=== PATIENT | female | born 1955 | race American Indian/Alaskan Native ===

== ENCOUNTER 2017-05-22 18:02 | Inpatient (IN) | payer MEDICAID ==
[2017-05-22 19:21] LABS: Basophils % (Auto) 0.7 % (0.0-1.8); Eosinophils % (Auto) 0.7 % (0.0-4.3); Hematocrit 38.4 % (30.3-42.9); Hemoglobin 12.1 gm/dl (10.1-14.3); Mean Corpuscular HGB Conc 32 % (30-34); Mean Corpuscular Hemoglobin 27 pg (28-32); Mean Corpuscular Volume 86 fl (79-97); Platelet Count 297 K/mm3 (140-440); Red Blood Count 4.47 M/mm3 (3.65-5.03); Red Cell Distribution Width 15.6 % (13.2-15.2); White Blood Count 7.1 K/mm3 (4.5-11.0)
[2017-05-22] MEDS ORDERED: TYLENOL PO ONE (19:41)
[2017-05-22] MEDS ORDERED: PROVENTIL IH ONE (19:41)
[2017-05-22] MEDS ORDERED: MAGNESIUM SULFATE 2GM/50ML 2 GM/50 ML BAG IV ONE (19:41)
[2017-05-22] MEDS ORDERED: ATROVENT IH ONE (19:41)
--- NOTE | 2017-05-22 19:43 | Emergency Department Report ---
ED General Adult HPI - General Chief complaint: High BP Stated complaint: SOB/HYPERTENSIVE Time Seen by Provider: 05/22/17 19:17 Source: patient, EMS (ems notes not available at time of chart dictation), RN notes reviewed Mode of arrival: Stretcher Limitations: No Limitations, Physical Limitation - History of Present Illness Initial comments: This is a 62-year-old female. She is previously unknown to me. Her primary care doctor is Dr. Angle Rodriguez. Past medical history includes hypertension, anxiety, asthma. Patient presents to the ER complaining of central chest pain, shortness of breath, orthopnea, decreased exercise tolerance, bilateral lower extremity swelling. Patient reports that at baseline she sleeps on 2 pillows. She reports an increase in orthopnea. Patient reports a recent trip from [place] over a month ago, but reports frequent stops for bathroom breaks. The patient also complains of central and scalp headache. The headache is throbbing. It is not sudden thunderclap in nature. It did not reach maximal intensity within an hour. There is no neck pain or neck stiffness. There is no abdominal pain, there are no irritative and obstructive urinary symptoms, no cough, positive diaphoresis, uncertain if she's had any weight gain. -: Gradual, days(s) Location: chest, left, right, lower extremity Severity scale (0 -10): 8 Quality: aching Consistency: constant Improves with: rest Worsens with: movement Associated Symptoms: chest pain, malaise, shortness of breath, weakness. denies : cough - Related Data Home Medications Medication Instructions Recorded Confirmed Last Taken Atenolol/Chlorthalidone [Tenoretic 1 tab PO QDAY 05/22/17 05/22/17 01/03/17 100-25] Allergies Allergy/AdvReac Type Severity Reaction Status Date / Time codeine Allergy Itching Verified 05/22/17 19:46 morphine Allergy Unknown Verified 05/22/17 19:46 ED Review of Systems ROS: Stated complaint: SOB/HYPERTENSIVE Other details as noted in HPI Constitutional: malaise, weakness Eyes: denies: vision change Respiratory: shortness of breath, SOB with exertion, wheezing Cardiovascular: chest pain, dyspnea on exertion, orthopnea, edema Gastrointestinal: denies: vomiting Genitourinary: denies: urgency Musculoskeletal: denies: back pain Skin: denies: lesions Neurological: headache, weakness Psychiatric: anxiety ED Past Medical Hx - Past Medical History Previous Medical History?: Yes Hx Hypertension: Yes - Surgical History Hx Cholecystectomy: Yes Additional Surgical History: HYSTO 84 - Social History Smoking Status: Never Smoker Substance Use Type: None - Medications Home Medications: Home Medications Medication Instructions Recorded Confirmed Last Taken Type Atenolol/Chlorthalidone [Tenoretic 1 tab PO QDAY 05/22/17 05/22/17 01/03/17 History 100-25] ED Physical Exam - General Limitations: Physical Limitation General appearance: alert, in no apparent distress - Head Head exam: Present: atraumatic, normocephalic - Eye Eye exam: Present: normal appearance, EOMI. Absent: nystagmus - ENT ENT exam: Present: normal exam, normal orophraynx, mucous membranes moist, normal external ear exam - Neck Neck exam: Present: normal inspection, full ROM, other (4-5 cm of jugular venous distention bilaterally). Absent: tenderness, meningismus - Respiratory Respiratory exam: Present: respiratory distress, wheezes, rales, rhonchi, chest wall tenderness - Cardiovascular Cardiovascular Exam: Present: regular rate, normal rhythm, normal heart sounds. Absent: bradycardia, tachycardia, irregular rhythm, systolic murmur, diastolic murmur, rubs, gallop - GI/Abdominal GI/Abdominal exam: Present: soft, normal bowel sounds. Absent: distended, tenderness, guarding, rebound, rigid, pulsatile mass - Extremities Exam Extremities exam: Present: normal inspection, full ROM, normal capillary refill , pedal edema. Absent: calf tenderness - Back Exam Back exam: Present: normal inspection, full ROM. Absent: tenderness, CVA tenderness (R), CVA tenderness (L), muscle spasm, paraspinal tenderness, vertebral tenderness - Neurological Exam Neurological exam: Present: alert, oriented X3, other (Extraocular movements intact. Tongue midline. No facial droop. Facial sensation intact to light touch in the V1, V2, V3 distribution bilaterally. 5 and 5 strength in 4 extremities.. Sensation is intact to light touch in 4 extremities.). Absent: motor sensory deficit - Psychiatric Psychiatric exam: Present: normal affect, normal mood - Skin Skin exam: Present: warm, dry, intact, normal color. Absent: rash ED Course Vital Signs 05/22/17 05/22/17 05/22/17 18:28 19:49 19:59 Temperature 98.7 F Pulse Rate 94 H 86 Pulse Rate [ 91 H Bilateral Upper Lobe] Respiratory 18 24 Rate Respiratory 18 Rate [Bilateral Upper Lobe] Blood Pressure 213/110 Blood Pressure 165/98 [Right] O2 Sat by Pulse 95 97 Oximetry 05/22/17 05/22/17 21:00 23:00 Temperature Pulse Rate 101 H 98 H Pulse Rate [ Bilateral Upper Lobe] Respiratory 22 22 Rate Respiratory Rate [Bilateral Upper Lobe] Blood Pressure Blood Pressure 158/96 159/98 [Right] O2 Sat by Pulse 98 97 Oximetry - Reevaluation(s) Reevaluation #1: 05/22/17 20:34 Differential diagnosis: Congestive heart failure, pneumonia, bronchitis, pulmonary hypertension, obstructive sleep apnea, multifactorial respiratory distress Assessment and plan: 62-year-old female with chest tightness that is reproducible, shortness of breath, edema, orthopnea, jugular venous distention, x-ray of the chest that suggest congestive heart failure. Clinical picture consistent with new onset congestive heart failure. Troponin is negative. Renal function is within normal limits. Low risk by well's criteria. EKG is nonspecific. Patient will be treated symptomatically for her headache, which is most likely migraine versus tension versus cluster versus nonlethal headache. She has a GCS of 15, with an anion score of 0, and she is clinically sober at this time. She will be admitted to the hospital for presumed new onset congestive heart failure, acute coronary syndrome risk stratification. Reevaluation #2: 05/22/17 21:57 Case is discussed with the Hospital physician, Dr. Mi, she accepts the patient to her service. ED Medical Decision Making - Lab Data Result diagrams: 05/23/17 05:26 05/23/17 05:27 - EKG Data -: EKG Interpreted by Me Critical care attestation.: If time is entered above; I have spent that time in minutes in the direct care of this critically ill patient, excluding procedure time. ED Disposition Clinical Impression: CHF (congestive heart failure) Disposition: -09 OP ADMIT IP TO THIS HOSP Is pt being admited?: Yes Does the pt Need Aspirin: Yes Condition: Stable
[2017-05-22 19:56] LABS: Anion Gap 15 mmol/L; Blood Urea Nitrogen 9 mg/dL (7-17); Calcium 9.1 mg/dL (8.4-10.2); Carbon Dioxide 31 mmol/L (22-30); Chloride 101.9 mmol/L (98-107); Glucose 105 mg/dL (65-100); Potassium 4.2 mmol/L (3.6-5.0); Sodium 144 mmol/L (137-145)
--- NOTE | 2017-05-22 20:04 | XRay Report ---
FINAL REPORT EXAM: XR CHEST 1V AP HISTORY: CP TECHNIQUE: AP portable view of the chest PRIORS: None. FINDINGS: Lines, tubes, and devices: N/A Lungs and pleura: Trachea is normal in position. There is perihilar vascular congestion suggesting mild CHF. Haziness in the right lung base suggesting probable pleural effusion tracking laterally. Cardiomediastinal silhouette: Heart is enlarged. Mediastinum is unremarkable. Other: Bony structures are intact. IMPRESSION: Perihilar vascular congestion suggesting CHF. Probable right pleural effusion tracking laterally.
[2017-05-22] MEDS ORDERED: TORADOL IV ONE (20:12)
[2017-05-22] MEDS ORDERED: LASIX IV ONE (20:12)
[2017-05-22 20:42] LABS: Magnesium 1.7 mg/dL (1.7-2.3)
[2017-05-22] MEDS ORDERED: BABY ASPIRIN PO ONE (21:58)
[2017-05-22] MEDS ORDERED: DULCOLAX PR PRN (22:42)
[2017-05-22] MEDS ORDERED: ZOFRAN IV PRN (22:42)
[2017-05-22] MEDS ORDERED: MILK OF MAGNESIA PO PRN (22:42)
--- NOTE | 2017-05-22 22:51 | History and Physical Report ---
History of Present Illness Date of examination: 05/22/17 History of present illness: 62 -year-old woman with a history of hypertension, asthma, anxiety comes emergency room with complaint of shortness of breath, dyspnea on exertion, PND and orthopnea and lower extremity edema.. She has not taken her antihypertensive over the last 4 months. Also complaining of chest pain in the epigastric area which she described as stabbing pain, intermittent in nature lasting 1 minute, intensity 5/10, no radiation and she cannot identify exacerbating or relieving factors. Admits to diaphoresis, no nausea vomiting, palpitation Review Of Systems: Constitutional: no fever, chills, weight loss Ears, eyes, nose, mouth and throat: no nasal congestion, no nasal discharge, no sinus pressure, blurry vision, diplopia Neck: No neck pain or rigidity. Cardiovascular: no orthopnea, palpitations Respiratory: No shortness of breath, cough Gastrointestinal: abdominal pain, hematochezia Genitourinary : no dysuria, frequency , hematuria Musculoskeletal: no joint swelling or muscle ache Integumentary: no rash, no pruritis Neurological: no parathesias, focal weakness Endocrine: no cold or heat intolerance, no polyuria or polydipsia Hematologic/Lymphatic: no easy bruising, no easy bleeding, no gland swelling Allergic/Immunologic: no urticaria, no angioedema. PAST MEDICAL HISTORY:hypertension, asthma, anxiety PAST SURGICAL HISTORY: Cholecystectomy, hysterectomy FAMILY HISTORY: Hypertension SOCIAL HISTORY: Denies alcohol, tobacco, drugs Medications and Allergies Allergies Allergy/AdvReac Type Severity Reaction Status Date / Time codeine Allergy Itching Verified 05/22/17 19:46 morphine Allergy Unknown Verified 05/22/17 19:46 Home Medications Medication Instructions Recorded Confirmed Last Taken Type Atenolol/Chlorthalidone [Tenoretic 1 tab PO QDAY 05/22/17 05/22/17 01/03/17 History 100-25] Active Meds: Active Medications Acetaminophen (Tylenol) 650 mg PO Q4H PRN PRN Reason: Pain MILD(1-3)/Fever >100.5/CONTRERAS Aspirin (Aspirin) 325 mg PO QDAY JEREMY Bisacodyl (Dulcolax) [address] QDAY PRN PRN Reason: Constipation unrelieved by MOM Enoxaparin Sodium (Lovenox) 30 mg SUB-Q QDAY JEREMY Furosemide (Lasix) 40 mg IV BID@0600,1800 JEREMY Lisinopril (Zestril) 2.5 mg PO QDAY JEREMY Magnesium Hydroxide (Milk Of Magnesia) 30 ml PO Q4H PRN PRN Reason: Constipation Metoprolol Tartrate (Lopressor) 12.5 mg PO BID JEREMY Ondansetron HCl (Zofran) 4 mg IV Q8H PRN PRN Reason: N/V unrelieved by Reglan Exam - Physical Exam Narrative exam: Gen. appearance: Patient lying in bed, no apparent distress HEENT: Normocephalic, atraumatic, pupils equally round and reactive to light, extraocular movement intact, and no sclericterus,. No JVD or thyromegaly or nodule,neck supple, no carotid bruit ,mucous membranes moist, no exudate or erythema Heart: S1, S2, regular rate and rhythm Lungs: crackles bilaterally, breathing comfortable Abdomen: Positive bowel sounds, nontender, nondistended, no organomegaly Extremity: No edema, cyanosis, clubbing Skin: No rash, nodules, warm, dry Neuro: Oriented 3, cranial nerves II-12 intact, speech is fluent, motor and sensory intact - Constitutional Vitals: Temp Pulse Resp BP Pulse Ox 98.7 F 101 H 22 158/96 98 05/22/17 18:28 05/22/17 21:00 05/22/17 21:00 05/22/17 21:00 05/22/17 21:00 Results - Labs CBC & Chem 7: 05/22/17 18:58 05/22/17 18:58 Labs: Abnormal lab results 05/22/17 05/22/17 Range/Units 18:58 18:58 MCH 27 L (28-32) pg RDW 15.6 H (13.2-15.2) % Carbon Dioxide 31 H (22-30) mmol/L Creatinine 0.5 L (0.7-1.2) mg/dL Glucose 105 H (65-100) mg/dL - Imaging and Cardiology EKG: image reviewed Chest x-ray: image reviewed Assessment and Plan Assessment New onset CHF versus hypertensive urgency Chest pain Hypertension malignant Asthma Anxiety Plan Admit to medicine Diuresed with IV Lasix Start beta lacey, aspirin, STEPHANIE inhibitor Check cardiac enzymes, echo, consult cardiology Start IV hydralazine as needed for blood pressure obtain stress test Continue Procrit outpatient medication comes start DVT prophylaxis
[2017-05-23] LABS: ISTAT Base Excess 8; ISTAT HCO3 34.1; ISTAT PCO2 62.2 (35-45); ISTAT PH 7.348 (7.35-7.45); ISTAT PO2 99 (80-105); ISTAT SO2 97; ISTAT TCO2 36
[2017-05-23] MEDS: APRESOLINE IV PRN ×2 (01:49→07:50)
[2017-05-23] MEDS: LASIX IV SCH ×2 (05:21→18:21)
[2017-05-23 06:02] LABS: Hematocrit 38.6 % (30.3-42.9); Hemoglobin 11.9 gm/dl (10.1-14.3); Mean Corpuscular HGB Conc 31 % (30-34); Mean Corpuscular Hemoglobin 27 pg (28-32); Mean Corpuscular Volume 86 fl (79-97); Platelet Count 305 K/mm3 (140-440); Red Cell Distribution Width 15.4 % (13.2-15.2); White Blood Count 8.9 K/mm3 (4.5-11.0)
[2017-05-23 06:04] LABS: Anion Gap 18 mmol/L; Blood Urea Nitrogen 11 mg/dL (7-17); Calcium 9.2 mg/dL (8.4-10.2); Carbon Dioxide 29 mmol/L (22-30); Chloride 96.8 mmol/L (98-107); Glucose 197 mg/dL (65-100); Potassium 4.3 mmol/L (3.6-5.0); Sodium 139 mmol/L (137-145)
[2017-05-23 06:23] LABS: Creatine Kinase MB 2.5 ng/mL (0.0-4.0)
[2017-05-23 06:24] LABS: Creatine Kinase 102 units/L (30-135)
[2017-05-23 07:10] LABS: Anisocytosis 1+; Basophils % (Manual) 0 % (0.0-1.8); Blastocytes % (Manual) 0 %; Diff Status Complete
[2017-05-23] MEDS: TYLENOL PO PRN ×2 (07:58→18:21)
--- NOTE | 2017-05-23 08:16 | Consultation ---
History of Present Illness Consult date: 05/23/17 Consult reason: shortness of breath History of present illness: 62 year old female presenting with shortness of breath, chest tightness, edema and headache. BP is uncontrolled. She ran out of BP meds. She takes lasix as needed at home. Last cardiac evaluation was performed several years ago. CXR is pertinent for early CHF changes. Past History Past Medical History: hypertension Medications and Allergies Allergies Allergy/AdvReac Type Severity Reaction Status Date / Time codeine Allergy Itching Verified 05/22/17 19:46 morphine Allergy Unknown Verified 05/22/17 19:46 Home Medications Medication Instructions Recorded Confirmed Last Taken Type Atenolol/Chlorthalidone [Tenoretic 1 tab PO QDAY 05/22/17 05/22/17 01/03/17 History 100-25] Active Meds: Active Medications Acetaminophen (Tylenol) 650 mg PO Q4H PRN PRN Reason: Pain MILD(1-3)/Fever >100.5/COTNRERAS Last Admin: 05/23/17 07:58 Dose: 650 mg Aspirin (Aspirin) 325 mg PO QDAY JEREMY Bisacodyl (Dulcolax) 10 mg AR QDAY PRN PRN Reason: Constipation unrelieved by MOM Enoxaparin Sodium (Lovenox) 40 mg SUB-Q QDAY@1000 JEREMY Furosemide (Lasix) 40 mg IV BID@0600,1800 JEREMY Last Admin: 05/23/17 05:21 Dose: 40 mg Hydralazine HCl (Apresoline) 5 mg IV Q4HR PRN PRN Reason: SBP > 160 Last Admin: 05/23/17 07:50 Dose: 5 mg Lisinopril (Zestril) 2.5 mg PO QDAY JEREMY Magnesium Hydroxide (Milk Of Magnesia) 30 ml PO Q4H PRN PRN Reason: Constipation Last Admin: 05/23/17 07:58 Dose: 30 ml Metoprolol Tartrate (Lopressor) 12.5 mg PO BID JEREMY Ondansetron HCl (Zofran) 4 mg IV Q8H PRN PRN Reason: N/V unrelieved by Reglan Pneumococcal Polyvalent Vaccine (Pneumovax 23) 0.5 ml IM .ONCE ONE Stop: 05/23/17 12:01 Review of Systems All systems: negative Physical Examination Vital Signs Temp Pulse Resp BP Pulse Ox 98.7 F 94 H 18 213/110 95 05/22/17 18:28 05/22/17 18:28 05/22/17 18:28 05/22/17 18:28 05/22/17 18:28 General appearance: no acute distress HEENT: Positive: PERRL Neck: Positive: neck supple, JVD/HJR Cardiac: Positive: Reg Rate and Rhythm Lungs: Positive: Decreased Breath Sounds Neuro: Positive: Grossly Intact Abdomen: Positive: Soft Extremities: Absent: edema Results 05/23/17 05:26 05/23/17 05:27 Cardiac Enzymes 05/23/17 Range/Units 05:27 CK-MB (CK-2) 2.5 (0.0-4.0) ng/mL CBC 05/23/17 Range/Units 05:26 WBC 8.9 (4.5-11.0) K/mm3 RBC 4.50 (3.65-5.03) M/mm3 Hgb 11.9 (10.1-14.3) gm/dl Hct 38.6 (30.3-42.9) % Plt Count 305 (140-440) K/mm3 Comprehensive Metabolic Panel 05/23/17 Range/Units 05:27 Sodium 139 (137-145) mmol/L Potassium 4.3 (3.6-5.0) mmol/L Chloride 96.8 L (98-107) mmol/L Carbon Dioxide 29 (22-30) mmol/L BUN 11 (7-17) mg/dL Creatinine 0.5 L (0.7-1.2) mg/dL Glucose 197 H (65-100) mg/dL Calcium 9.2 (8.4-10.2) mg/dL - EKG Interpretation EKG: sinus rhythm EKG shows: sinus rhythm EKG interpretations - Telemetry EKG Rhythm: Sinus Rhythm Assessment and Plan Acute diastolic heart failure Uncontrolled systemic Hypertension Morbid obesity Recommendations: Diuresis, afterload reduction Echocardiogram Lexiscan once blood pressure is better controlled
[2017-05-23] MEDS ORDERED: APRESOLINE IV PRN (08:28)
[2017-05-23] MEDS: COREG PO SCH ×2 (09:57→21:29)
[2017-05-23] MEDS: ASPIRIN PO SCH (09:57)
[2017-05-23] MEDS: THALITONE PO SCH (09:57)
[2017-05-23] MEDS: DIOVAN PO SCH ×2 (09:58→21:30)
[2017-05-23] MEDS: LOVENOX SUB-Q SCH (09:58)
[2017-05-23] MEDS ORDERED: ZESTRIL PO SCH (10:00)
[2017-05-23] MEDS ORDERED: LOPRESSOR PO SCH (10:00)
[2017-05-23] MEDS ORDERED: LOVENOX SUB-Q SCH (10:00)
[2017-05-23] MEDS ORDERED: PNEUMOVAX 23 IM ONE (12:00)
--- NOTE | 2017-05-23 13:34 | Progress Note ---
Assessment and Plan Assessment and plan: Acute CHF Hypertensive emergency - On IV diuresis, blood pressure medications were started - Patient is appropriately treated for CHF - Echo and a stress test pending DVT prophylaxis - on lovenox Disposition - Admit to telemetry History Interval history: patient seen and evaluated at the bedside, patient complains chest congestion and headache. Hospitalist Physical - Physical exam Narrative exam: Not in cardiopulmonary distress. The patient is obese. Vital signs as documented. Head exam is unremarkable. No scleral icterus . Neck is without jugular venous distension, thyromegaly, or carotid bruits. Lungs are rales on the posterior bibasilar area. Cardiac exam reveals regular rate and Rhythm. First and second heart sounds normal. No murmurs, rubs or gallops. Abdominal exam reveals normal bowel sounds, no masses, no organomegaly and no aortic enlargement. Extremities are nonedematous and both femoral and pedal pulses are normal. [employer]: Alert and oriented 3. No focal weakness. - Constitutional Vitals: Temp Pulse Resp BP Pulse Ox 98.2 F 86 20 216/109 94 05/23/17 07:20 05/23/17 09:58 05/23/17 07:20 05/23/17 09:58 05/23/17 07:20 General appearance: Present: no acute distress Results - Labs CBC & Chem 7: 05/23/17 05:26 05/23/17 05:27 Labs: Laboratory Last Values WBC 8.9 K/mm3 (4.5-11.0) 05/23/17 05:26 RBC 4.50 M/mm3 (3.65-5.03) 05/23/17 05:26 Hgb 11.9 gm/dl (10.1-14.3) 05/23/17 05:26 Hct 38.6 % (30.3-42.9) 05/23/17 05:26 MCV 86 fl (79-97) 05/23/17 05:26 MCH 27 pg (28-32) L 05/23/17 05:26 MCHC 31 % (30-34) 05/23/17 05:26 RDW 15.4 % (13.2-15.2) H 05/23/17 05:26 Plt Count 305 K/mm3 (140-440) 05/23/17 05:26 Lymph % (Auto) 23.8 % (13.4-35.0) 05/22/17 18:58 [place] % (Auto) 6.3 % (0.0-7.3) 05/22/17 18:58 Eos % (Auto) 0.7 % (0.0-4.3) 1817 18:58 Baso % (Auto) 0.7 % (0.0-1.8) 05/22/17 18:58 Lymph # 1.7 K/mm3 (1.2-5.4) 05/22/17 18:58 [place] # 0.4 K/mm3 (0.0-0.8) 05/22/17 18:58 Eos # 0.1 K/mm3 (0.0-0.4) 05/22/17 18:58 Baso # 0.0 K/mm3 (0.0-0.1) 18 18:58 Add Manual Diff Complete 05/23/17 05:26 Total Counted 100 05/23/17 05:26 Seg Neutrophils % Certified Coder 05/23/17 05:26 Seg Neuts % (Manual) 23.0 % (40.0-70.0) L 05/23/17 05:26 Band Neutrophils % 72.0 % 05/23/17 05:26 Lymphocytes % (Manual) 1.0 % (13.4-35.0) L 05/23/17 05:26 Reactive Lymphs % (Man) 0 % 05/23/17 05:26 Monocytes % (Manual) 0 % (0.0-7.3) 05/23/17 05:26 Eosinophils % (Manual) 2.0 % (0.0-4.3) 05/23/17 05:26 Basophils % (Manual) 0 % (0.0-1.8) 05/23/17 05:26 Metamyelocytes % 2.0 % 05/23/17 05:26 Myelocytes % 0 % 05/23/17 05:26 Promyelocytes % 0 % 05/23/17 05:26 Blast Cells % 0 % 05/23/17 05:26 Nucleated RBC % 14.0 % (0.0-0.9) H 05/23/17 05:26 Seg Neutrophils # 4.8 K/mm3 (1.8-7.7) 05/22/17 18:58 Seg Neutrophils # Man 2.0 K/mm3 (1.8-7.7) 05/23/17 05:26 Band Neutrophils # 6.4 K/mm3 05/23/17 05:26 Lymphocytes # (Manual) 0.1 K/mm3 (1.2-5.4) L 05/23/17 05:26 Abs React Lymphs (Man) 0.0 K/mm3 05/23/17 05:26 Monocytes # (Manual) 0.0 K/mm3 (0.0-0.8) 05/23/17 05:26 Eosinophils # (Manual) 0.2 K/mm3 (0.0-0.4) 05/23/17 05:26 Basophils # (Manual) 0.0 K/mm3 (0.0-0.1) 05/23/17 05:26 Metamyelocytes # 0.2 K/mm3 05/23/17 05:26 Myelocytes # 0.0 K/mm3 05/23/17 05:26 Promyelocytes # 0.0 K/mm3 05/23/17 05:26 Blast Cells # 0.0 K/mm3 05/23/17 05:26 WBC Morphology Not Reportable 05/23/17 05:26 Hypersegmented Neuts Not Reportable 05/23/17 05:26 Hyposegmented Neuts Not Reportable 05/23/17 05:26 Hypogranular Neuts Not Reportable 05/23/17 05:26 Smudge Cells Not Reportable 05/23/17 05:26 Toxic Granulation Not Reportable 05/23/17 05:26 Toxic Vacuolation Not Reportable 05/23/17 05:26 Dohle Bodies Not Reportable 05/23/17 05:26 Pelger-Huet Anomaly Not Reportable 05/23/17 05:26 Estella Rods Not Reportable 05/23/17 05:26 Platelet Estimate Appears normal 05/23/17 05:26 Clumped Platelets Not Reportable 05/23/17 05:26 Plt Clumps, EDTA Not Reportable 05/23/17 05:26 Large Platelets Not Reportable 05/23/17 05:26 Giant Platelets Not Reportable 05/23/17 05:26 Platelet Satelliting Not Reportable 05/23/17 05:26 Plt Morphology Comment Not Reportable 05/23/17 05:26 RBC Morphology Not Reportable 05/23/17 05:26 Dimorphic RBCs Not Reportable 05/23/17 05:26 Polychromasia Not Reportable 05/23/17 05:26 Hypochromasia Not Reportable 05/23/17 05:26 Poikilocytosis Not Reportable 05/23/17 05:26 Anisocytosis 1+ 05/23/17 05:26 Microcytosis Not Reportable 05/23/17 05:26 Macrocytosis Not Reportable 05/23/17 05:26 Spherocytes Not Reportable 05/23/17 05:26 Pappenheimer Bodies Not Reportable 05/23/17 05:26 Sickle Cells Not Reportable 05/23/17 05:26 Target Cells Not Reportable 05/23/17 05:26 Tear Drop Cells Not Reportable 05/23/17 05:26 Ovalocytes Not Reportable 05/23/17 05:26 Helmet Cells Not Reportable 05/23/17 05:26 [place] Bodies Not Reportable 05/23/17 05:26 [place] Rings Not Reportable 05/23/17 05:26 [place] Cells Not Reportable 05/23/17 05:26 Bite Cells Not Reportable 05/23/17 05:26 Crenated Cell Not Reportable 05/23/17 05:26 Elliptocytes Not Reportable 05/23/17 05:26 Acanthocytes (Spur) Not Reportable 05/23/17 05:26 Rouleaux Not Reportable 05/23/17 05:26 Hemoglobin C Crystals Not Reportable 05/23/17 05:26 Schistocytes Not Reportable 05/23/17 05:26 Malaria parasites Not Reportable 05/23/17 05:26 Mauro Bodies Not Reportable 05/23/17 05:26 Hem Pathologist Commnt No 05/23/17 05:26 PT 13.7 Sec. (12.2-14.9) 05/22/17 18:48 INR 1.00 (0.87-1.13) 05/22/17 18:48 POC ABG pH 7.348 (7.35-7.45) L 05/22/17 23:47 POC ABG pCO2 62.2 (35-45) H 05/22/17 23:47 POC ABG pO2 99 (80-105) 05/22/17 23:47 POC ABG HCO3 34.1 05/22/17 23:47 POC ABG Total CO2 36 05/22/17 23:47 POC ABG O2 Sat 97 05/22/17 23:47 POC ABG Base Excess 8 05/22/17 23:47 FiO2 28 % 05/22/17 23:47 Sodium 139 mmol/L (137-145) 05/23/17 05:27 Potassium 4.3 mmol/L (3.6-5.0) 05/23/17 05:27 Chloride 96.8 mmol/L (98-107) L 05/23/17 05:27 Carbon Dioxide 29 mmol/L (22-30) 05/23/17 05:27 Anion Gap 18 mmol/L 05/23/17 05:27 BUN 11 mg/dL (7-17) 05/23/17 05:27 Creatinine 0.5 mg/dL (0.7-1.2) L 05/23/17 05:27 Estimated GFR > 60 ml/min 05/23/17 05:27 BUN/Creatinine Ratio 22.00 % 05/23/17 05:27 Glucose 197 mg/dL (65-100) H 05/23/17 05:27 Calcium 9.2 mg/dL (8.4-10.2) 05/23/17 05:27 Magnesium 1.70 mg/dL (1.7-2.3) 05/22/17 18:48 Total Creatine Kinase 102 units/L (30-135) 05/23/17 05:27 CK-MB (CK-2) 2.5 ng/mL (0.0-4.0) 05/23/17 05:27 CK-MB (CK-2) Rel Index 2.4 (0-4) 05/23/17 05:27 Troponin T < 0.010 ng/mL (0.00-0.029) 05/23/17 05:27 NT-Pro-B Natriuret Pep 669.9 pg/mL (0-900) 05/22/17 18:48
[2017-05-24] MEDS: LASIX IV SCH ×2 (05:26→17:26)
[2017-05-24] MEDS: TYLENOL PO PRN ×2 (05:31→12:45)
[2017-05-24 07:42] LABS: Eosinophils % (Auto) 0.3 % (0.0-4.3); Hematocrit 39.7 % (30.3-42.9); Hemoglobin 12.6 gm/dl (10.1-14.3); Mean Corpuscular HGB Conc 32 % (30-34); Mean Corpuscular Hemoglobin 27 pg (28-32); Mean Corpuscular Volume 86 fl (79-97); Platelet Count 326 K/mm3 (140-440); Red Blood Count 4.64 M/mm3 (3.65-5.03); Red Cell Distribution Width 16.1 % (13.2-15.2); White Blood Count 7.2 K/mm3 (4.5-11.0)
[2017-05-24 07:49] LABS: BUN/Creatinine Ratio 33.33; Blood Urea Nitrogen 20 mg/dL (7-17); Calcium 9.4 mg/dL (8.4-10.2); Carbon Dioxide 36 mmol/L (22-30); Chloride 97.8 mmol/L (98-107); Glucose 82 mg/dL (65-100); Potassium 4.5 mmol/L (3.6-5.0); Sodium 145 mmol/L (137-145)
[2017-05-24] MEDS ORDERED: LEXISCAN IV ONE ×2 (08:04→08:14)
[2017-05-24 08:07] LABS: Anion Gap 16 mmol/L
--- NOTE | 2017-05-24 08:50 | Progress Note ---
Assessment and Plan Acute diastolic heart failure Systemic Hypertension - better controlled Morbid obesity Recommendations: Diuresis, afterload reduction Follow-up lexiscan results May go home if normal on the following meds. coreg, chlorthalidone and valsartan as ordered Subjective Date of service: 05/24/17 Principal diagnosis: SOB, HTN urgency Interval history: Patient feels better this morning, BP is better controlled Objective Vital Signs Temp Pulse Resp BP Pulse Ox 05/24/17 05:17 97.6 F 72 18 152/81 94 05/24/17 00:34 98.2 F 76 18 139/68 94 05/23/17 20:58 72 05/23/17 20:37 96 05/23/17 15:53 98.1 F 66 20 142/76 97 05/23/17 13:36 97.5 F L 79 20 151/82 94 05/23/17 09:58 86 216/109 05/23/17 09:57 86 216/109 - Physical Examination HEENT: Positive: PERRL Neck: Positive: neck supple, JVD/HJR Cardiac: Positive: Reg Rate and Rhythm Lungs: Positive: Normal Exam Neuro: Positive: Grossly Intact Abdomen: Positive: Soft Extremities: Absent: edema - Labs and Meds CBC 05/24/17 Range/Units 07:06 WBC 7.2 (4.5-11.0) K/mm3 RBC 4.64 (3.65-5.03) M/mm3 Hgb 12.6 (10.1-14.3) gm/dl Hct 39.7 (30.3-42.9) % Plt Count 326 (140-440) K/mm3 Lymph # 2.2 (1.2-5.4) K/mm3 [place] # 0.5 (0.0-0.8) K/mm3 Eos # 0.0 (0.0-0.4) K/mm3 Baso # 0.1 (0.0-0.1) K/mm3 Comprehensive Metabolic Panel 05/24/17 Range/Units 07:06 Sodium 145 (137-145) mmol/L Potassium 4.5 (3.6-5.0) mmol/L Chloride 97.8 L (98-107) mmol/L Carbon Dioxide 36 H D (22-30) mmol/L BUN 20 H (7-17) mg/dL Creatinine 0.6 L (0.7-1.2) mg/dL Glucose 82 (65-100) mg/dL Calcium 9.4 (8.4-10.2) mg/dL - Imaging and Cardiology EKG: image reviewed
[2017-05-24] MEDS ORDERED: NACL 0.9% 500 ML 500 ML IV SCH (10:00)
[2017-05-24] MEDS: THALITONE PO SCH (10:31)
[2017-05-24] MEDS: ASPIRIN PO SCH (10:31)
[2017-05-24] MEDS: DIOVAN PO SCH ×2 (10:31→21:10)
[2017-05-24] MEDS: COREG PO SCH ×2 (10:32→21:09)
[2017-05-24] MEDS: LOVENOX SUB-Q SCH (10:32)
--- NOTE | 2017-05-24 11:32 | Progress Note ---
Assessment and Plan Assessment and plan: Acute combined diastolic and systolic CHF Hypertensive emergency - On IV diuresis, blood pressure medications started and BP is reasonably well controlled - Patient is appropriately treated for CHF - Echo showed diastolic dysfunction - Stress test showed a partially reversible defect in the inferior wall, LVEF 35 % with global hypokinesis - Will have LHC in the morning DVT prophylaxis - on lovenox Disposition - Continue inpatient care. History Interval history: patient seen and evaluated at the bedside, congestion and chest pain getting better. Cardiology recommendation noticed. Hospitalist Physical - Physical exam Narrative exam: Not in cardiopulmonary distress. The patient is obese. Vital signs as documented. Head exam is unremarkable. No scleral icterus . Neck is without jugular venous distension, thyromegaly, or carotid bruits. Lungs are rales on the posterior bibasilar area. Cardiac exam reveals regular rate and Rhythm. First and second heart sounds normal. No murmurs, rubs or gallops. Abdominal exam reveals normal bowel sounds, no masses, no organomegaly and no aortic enlargement. Extremities are nonedematous and both femoral and pedal pulses are normal. 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 No focal weakness. - Constitutional Vitals: Temp Pulse Resp BP Pulse Ox 97.6 F 76 18 159/97 94 05/24/17 05:17 05/24/17 10:32 05/24/17 05:17 05/24/17 10:32 05/24/17 05:17 General appearance: Present: no acute distress Results - Labs CBC & Chem 7: 05/24/17 07:06 05/24/17 07:06 Labs: Laboratory Last Values WBC 7.2 K/mm3 (4.5-11.0) 05/24/17 07:06 RBC 4.64 M/mm3 (3.65-5.03) 05/24/17 07:06 Hgb 12.6 gm/dl (10.1-14.3) 05/24/17 07:06 Hct 39.7 % (30.3-42.9) 05/24/17 07:06 MCV 86 fl (79-97) 05/24/17 07:06 MCH 27 pg (28-32) L 05/24/17 07:06 MCHC 32 % (30-34) 05/24/17 07:06 RDW 16.1 % (13.2-15.2) H 05/24/17 07:06 Plt Count 326 K/mm3 (140-440) 05/24/17 07:06 Lymph % (Auto) 30.6 % (13.4-35.0) 05/24/17 07:06 [place] % (Auto) 6.6 % (0.0-7.3) 05/24/17 07:06 Eos % (Auto) 0.3 % (0.0-4.3) 05/24/17 07:06 Baso % (Auto) 1.0 % (0.0-1.8) 05/24/17 07:06 Lymph # 2.2 K/mm3 (1.2-5.4) 05/24/17 07:06 [place] # 0.5 K/mm3 (0.0-0.8) 05/24/17 07:06 Eos # 0.0 K/mm3 (0.0-0.4) 05/24/17 07:06 Baso # 0.1 K/mm3 (0.0-0.1) 05/24/17 07:06 Add Manual Diff Complete 05/23/17 05:26 Total Counted 100 05/23/17 05:26 Seg Neutrophils % 61.5 % (40.0-70.0) 05/24/17 07:06 Seg Neuts % (Manual) 23.0 % (40.0-70.0) L 05/23/17 05:26 Band Neutrophils % 72.0 % 05/23/17 05:26 Lymphocytes % (Manual) 1.0 % (13.4-35.0) L 05/23/17 05:26 Reactive Lymphs % (Man) 0 % 05/23/17 05:26 Monocytes % (Manual) 0 % (0.0-7.3) 05/23/17 05:26 Eosinophils % (Manual) 2.0 % (0.0-4.3) 05/23/17 05:26 Basophils % (Manual) 0 % (0.0-1.8) 05/23/17 05:26 Metamyelocytes % 2.0 % 05/23/17 05:26 Myelocytes % 0 % 05/23/17 05:26 Promyelocytes % 0 % 05/23/17 05:26 Blast Cells % 0 % 05/23/17 05:26 Nucleated RBC % 14.0 % (0.0-0.9) H 05/23/17 05:26 Seg Neutrophils # 4.4 K/mm3 (1.8-7.7) 05/24/17 07:06 Seg Neutrophils # Man 2.0 K/mm3 (1.8-7.7) 05/23/17 05:26 Band Neutrophils # 6.4 K/mm3 05/23/17 05:26 Lymphocytes # (Manual) 0.1 K/mm3 (1.2-5.4) L 05/23/17 05:26 Abs React Lymphs (Man) 0.0 K/mm3 05/23/17 05:26 Monocytes # (Manual) 0.0 K/mm3 (0.0-0.8) 05/23/17 05:26 Eosinophils # (Manual) 0.2 K/mm3 (0.0-0.4) 05/23/17 05:26 Basophils # (Manual) 0.0 K/mm3 (0.0-0.1) 05/23/17 05:26 Metamyelocytes # 0.2 K/mm3 05/23/17 05:26 Myelocytes # 0.0 K/mm3 05/23/17 05:26 Promyelocytes # 0.0 K/mm3 05/23/17 05:26 Blast Cells # 0.0 K/mm3 05/23/17 05:26 WBC Morphology Not Reportable 05/23/17 05:26 Hypersegmented Neuts Not Reportable 05/23/17 05:26 Hyposegmented Neuts Not Reportable 05/23/17 05:26 Hypogranular Neuts Not Reportable 05/23/17 05:26 Smudge Cells Not Reportable 05/23/17 05:26 Toxic Granulation Not Reportable 05/23/17 05:26 Toxic Vacuolation Not Reportable 05/23/17 05:26 Dohle Bodies Not Reportable 05/23/17 05:26 Pelger-Huet Anomaly Not Reportable 05/23/17 05:26 Estella Rods Not Reportable 05/23/17 05:26 Platelet Estimate Appears normal 05/23/17 05:26 Clumped Platelets Not Reportable 05/23/17 05:26 Plt Clumps, EDTA Not Reportable 05/23/17 05:26 Large Platelets Not Reportable 05/23/17 05:26 Giant Platelets Not Reportable 05/23/17 05:26 Platelet Satelliting Not Reportable 05/23/17 05:26 Plt Morphology Comment Not Reportable 05/23/17 05:26 RBC Morphology Not Reportable 05/23/17 05:26 Dimorphic RBCs Not Reportable 05/23/17 05:26 Polychromasia Not Reportable 05/23/17 05:26 Hypochromasia Not Reportable 05/23/17 05:26 Poikilocytosis Not Reportable 05/23/17 05:26 Anisocytosis 1+ 05/23/17 05:26 Microcytosis Not Reportable 05/23/17 05:26 Macrocytosis Not Reportable 05/23/17 05:26 Spherocytes Not Reportable 05/23/17 05:26 Pappenheimer Bodies Not Reportable 05/23/17 05:26 Sickle Cells Not Reportable 05/23/17 05:26 Target Cells Not Reportable 05/23/17 05:26 Tear Drop Cells Not Reportable 05/23/17 05:26 Ovalocytes Not Reportable 05/23/17 05:26 Helmet Cells Not Reportable 05/23/17 05:26 [place] Bodies Not Reportable 05/23/17 05:26 [place] Rings Not Reportable 05/23/17 05:26 [place] Cells Not Reportable 05/23/17 05:26 Bite Cells Not Reportable 05/23/17 05:26 Crenated Cell Not Reportable 05/23/17 05:26 Elliptocytes Not Reportable 05/23/17 05:26 Acanthocytes (Spur) Not Reportable 05/23/17 05:26 Rouleaux Not Reportable 05/23/17 05:26 Hemoglobin C Crystals Not Reportable 05/23/17 05:26 Schistocytes Not Reportable 05/23/17 05:26 Malaria parasites Not Reportable 05/23/17 05:26 Mauro Bodies Not Reportable 05/23/17 05:26 Hem Pathologist Commnt No 05/23/17 05:26 PT 13.7 Sec. (12.2-14.9) 05/22/17 18:48 INR 1.00 (0.87-1.13) 05/22/17 18:48 POC ABG pH 7.348 (7.35-7.45) L 05/22/17 23:47 POC ABG pCO2 62.2 (35-45) H 05/22/17 23:47 POC ABG pO2 99 (80-105) 05/22/17 23:47 POC ABG HCO3 34.1 05/22/17 23:47 POC ABG Total CO2 36 05/22/17 23:47 POC ABG O2 Sat 97 05/22/17 23:47 POC ABG Base Excess 8 05/22/17 23:47 FiO2 28 % 05/22/17 23:47 Sodium 145 mmol/L (137-145) 05/24/17 07:06 Potassium 4.5 mmol/L (3.6-5.0) 05/24/17 07:06 Chloride 97.8 mmol/L (98-107) L 05/24/17 07:06 Carbon Dioxide 36 mmol/L (22-30) H D 05/24/17 07:06 Anion Gap 16 mmol/L 05/24/17 07:06 BUN 20 mg/dL (7-17) H 05/24/17 07:06 Creatinine 0.6 mg/dL (0.7-1.2) L 05/24/17 07:06 Estimated GFR > 60 ml/min 05/24/17 07:06 BUN/Creatinine Ratio 33.33 % 05/24/17 07:06 Glucose 82 mg/dL (65-100) 05/24/17 07:06 Calcium 9.4 mg/dL (8.4-10.2) 05/24/17 07:06 Magnesium 1.70 mg/dL (1.7-2.3) 05/22/17 18:48 Total Creatine Kinase 102 units/L (30-135) 05/23/17 05:27 CK-MB (CK-2) 2.5 ng/mL (0.0-4.0) 05/23/17 05:27 CK-MB (CK-2) Rel Index 2.4 (0-4) 05/23/17 05:27 Troponin T < 0.010 ng/mL (0.00-0.029) 05/23/17 05:27 NT-Pro-B Natriuret Pep 669.9 pg/mL (0-900) 05/22/17 18:48
--- NOTE | 2017-05-24 14:57 | Treadmill Report ---
INDICATION: Shortness of breath. ORDERING PHYSICIAN: Dr. Nestor Hall FINDINGS: There is evidence of a moderate to large area of infarction/ischemia noted in the right coronary artery distribution. The area comprises 18% of the left ventricular myocardium and is moderately reversible. There is also evidence of a small fixed anterior wall defect that is secondary to breast attenuation artifact. Gated wall imaging reveals a left ventricular ejection fraction of 35% with global hypokinesis. There is decreased uptake in the inferior wall. CONCLUSION: 1. Abnormal perfusion scan revealing a moderate to large size partially reversible inferior wall defect suggesting infarction/ischemia in the right coronary artery distribution. 2. Global left ventricular hypokinesis with an ejection fraction measured at 35%. 3. This is a high risk myocardial perfusion study associated with a 1-year cardiovascular mortality of greater than 3%. 4. Clinical correlation is recommended. JOB# [id number] ALISSA/TOMAS
[2017-05-24] MEDS ORDERED: PERCOCET 5/325 PO ONE (18:40)
[2017-05-25] MEDS ORDERED: NACL 0.9% 500 ML 500 ML ONE (05:36)
[2017-05-25 05:44] LABS: INR 0.94 (0.87-1.13)
[2017-05-25 05:45] LABS: Partial Thromboplastin Time 30.9 Sec. (24.2-36.6)
[2017-05-25] MEDS: LASIX IV SCH ×2 (05:46→20:09)
[2017-05-25 05:49] LABS: Anion Gap 15 mmol/L; BUN/Creatinine Ratio 26.66; Blood Urea Nitrogen 16 mg/dL (7-17); Calcium 9.7 mg/dL (8.4-10.2); Carbon Dioxide 37 mmol/L (22-30); Chloride 95.2 mmol/L (98-107); Glucose 88 mg/dL (65-100); Potassium 4.4 mmol/L (3.6-5.0); Sodium 143 mmol/L (137-145)
[2017-05-25] MEDS: TYLENOL PO PRN ×3 (05:51→22:27)
[2017-05-25] MEDS ORDERED: ECOTRIN PO ONE (08:44)
[2017-05-25] MEDS ORDERED: HEPARIN/NS 5000 UNIT/500ML(CATH LAB) 1,000 ML IR ONE (11:06)
[2017-05-25] MEDS ORDERED: CALAN ONE (11:07)
[2017-05-25] MEDS ORDERED: XYLOCAINE 2% INFILTRATI ONE (11:07)
[2017-05-25] MEDS ORDERED: HEPARIN 10,000 UNITS/10 ML ONE (11:07)
[2017-05-25] MEDS ORDERED: VERSED ONE (11:08)
[2017-05-25] MEDS ORDERED: NITROGLYCERIN SYRINGE 0 ML ONE (11:08)
[2017-05-25] MEDS ORDERED: SUBLIMAZE ONE (11:09)
[2017-05-25] MEDS ORDERED: HEPARIN/NS 5000 UNIT/500ML(CATH LAB) 500 ML IR ONE (11:20)
--- NOTE | 2017-05-25 13:04 | Cardiac Catherization Report ---
CARDIAC CATHETERIZATION REPORT REASON FOR PROCEDURE: The patient is a 62-year-old woman, who presented with chest pain, found to have an abnormal thallium stress test. A cardiac catheterization was recommended. On her echocardiogram, it was reported that she had evidence of mild mitral stenosis. We therefore recommend a right and left heart catheterization. PROCEDURE: 1. Right heart catheterization. 2. Left heart catheterization and left ventricular angiography. 3. Selective right and left coronary angiography. The patient was prepped and draped in a sterile fashion after informed consent. The right femoral artery and vein were entered using the Seldinger technique. A 6-Hungarian sheath was placed in the artery and an 8-Hung[place] sheath in the vein. A [place] catheterization was then performed, and the catheter was advanced to the pulmonary artery position. Thermodilution cardiac output was measured. We then entered the left ventricle using a pigtail catheter. Simultaneous left and right heart filling pressures were then measured, and the [place] was withdrawn. Following that, left ventricle angiography was performed, following which the pigtail catheter was withdrawn across the aortic valve. We then performed selective left and right coronary angiography. A #4 left Lyudmila was used for left coronary angiography, and a #4 right Lyudmila was used for right coronary angiography. The catheters were then removed, sheaths removed. Hemostasis achieved over the arterial site using an Angio-Seal device, and manual compression over the venous site. The patient was returned to the postprocedure unit in stable condition. There were no complications. FINDINGS: HEMODYNAMICS: Mean right atrial pressure was 20. Right ventricular pressure 60/25. Pulmonary artery pressure was 60/30. The cardiac output was 6.7 liters per minute. The pulmonary artery wedge pressure was approximately 30. Left ventricular end-diastolic pressure was 30. There was minimal to no significant transmitral pressure gradient. CORONARY ANGIOGRAPHY: There were separate left anterior descending and circumflex ostia. The left anterior descending artery and its diagonal branches contained minimal irregularities. The circumflex artery was a large dominant vessel, that was free of significant disease. The right coronary artery was small, nondominant and contains minimal irregularities. There was mild left ventricular systolic dysfunction with ejection fraction estimated at 40% to 45%, following an extra systolic beat. CONCLUSION: 1. Moderate to severe increase in right and left heart filling pressures, moderately severe pulmonary hypertension. 2. No significant mitral stenosis, minimal transmitral gradients noted. 3. No significant coronary artery disease, essentially angiographically normal coronary arteries. 4. Mild left ventricular systolic dysfunction, ejection fraction 40% to 45%, post extra systolic beat. RECOMMENDATION: 1. Medical therapy and risk factor modification. 2. If clinically indicated, recommend pulmonary assessment for underlying pulmonary hypertension. [facility]# [id number] CA/NTS
[2017-05-25] MEDS ORDERED: PERCOCET 5/325 PO PRN (15:30)
--- NOTE | 2017-05-25 15:36 | Progress Note ---
Assessment and Plan Assessment and plan: Acute combined diastolic and systolic CHF Hypertensive emergency - On IV diuresis, blood pressure medications started and BP is reasonably well controlled - Patient is on appropriate treatment for CHF - Echo showed diastolic dysfunction - Stress test showed a partially reversible defect in the inferior wall, LVEF 35 % with global hypokinesis - Right and left heart cath was done and showed ejection fraction of 40-45%, moderately severe pulmonary hypertension - Cardiology recommended risk modification DVT prophylaxis - on lovenox Disposition - Possible DC tomorrow. History Interval history: patient seen and evaluated at the bedside, congestion and chest pain getting better. Patient is complaining back pain which is chronic. Hospitalist Physical - Physical exam Narrative exam: Not in cardiopulmonary distress. Patient was lying flat without any shortness of breath. The patient is obese. Vital signs as documented. Head exam is unremarkable. No scleral icterus . Neck is without jugular venous distension, thyromegaly, or carotid bruits. Lungs are clear to auscultation bilaterally. Cardiac exam reveals regular rate and Rhythm. First and second heart sounds normal. No murmurs, rubs or gallops. Abdominal exam reveals normal bowel sounds, no masses, no organomegaly and no aortic enlargement. Extremities are nonedematous and both femoral and pedal pulses are normal. 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 No focal weakness. - Constitutional Vitals: Temp Pulse Resp BP Pulse Ox 98.7 F 77 20 171/70 98 05/25/17 13:52 05/25/17 13:52 05/25/17 13:52 05/25/17 13:52 05/25/17 13:52 General appearance: Present: no acute distress Results - Labs CBC & Chem 7: 05/24/17 07:06 05/25/17 05:05 Labs: Laboratory Last Values WBC 7.2 K/mm3 (4.5-11.0) 05/24/17 07:06 RBC 4.64 M/mm3 (3.65-5.03) 05/24/17 07:06 Hgb 12.6 gm/dl (10.1-14.3) 05/24/17 07:06 Hct 39.7 % (30.3-42.9) 05/24/17 07:06 MCV 86 fl (79-97) 05/24/17 07:06 MCH 27 pg (28-32) L 05/24/17 07:06 MCHC 32 % (30-34) 05/24/17 07:06 RDW 16.1 % (13.2-15.2) H 05/24/17 07:06 Plt Count 326 K/mm3 (140-440) 05/24/17 07:06 Lymph % (Auto) 30.6 % (13.4-35.0) 05/24/17 07:06 [place] % (Auto) 6.6 % (0.0-7.3) 05/24/17 07:06 Eos % (Auto) 0.3 % (0.0-4.3) 05/24/17 07:06 Baso % (Auto) 1.0 % (0.0-1.8) 05/24/17 07:06 Lymph # 2.2 K/mm3 (1.2-5.4) 05/24/17 07:06 [place] # 0.5 K/mm3 (0.0-0.8) 05/24/17 07:06 Eos # 0.0 K/mm3 (0.0-0.4) 05/24/17 07:06 Baso # 0.1 K/mm3 (0.0-0.1) 05/24/17 07:06 Add Manual Diff Complete 05/23/17 05:26 Total Counted 100 05/23/17 05:26 Seg Neutrophils % 61.5 % (40.0-70.0) 05/24/17 07:06 Seg Neuts % (Manual) 23.0 % (40.0-70.0) L 05/23/17 05:26 Band Neutrophils % 72.0 % 05/23/17 05:26 Lymphocytes % (Manual) 1.0 % (13.4-35.0) L 05/23/17 05:26 Reactive Lymphs % (Man) 0 % 05/23/17 05:26 Monocytes % (Manual) 0 % (0.0-7.3) 05/23/17 05:26 Eosinophils % (Manual) 2.0 % (0.0-4.3) 05/23/17 05:26 Basophils % (Manual) 0 % (0.0-1.8) 05/23/17 05:26 Metamyelocytes % 2.0 % 05/23/17 05:26 Myelocytes % 0 % 05/23/17 05:26 Promyelocytes % 0 % 05/23/17 05:26 Blast Cells % 0 % 05/23/17 05:26 Nucleated RBC % 14.0 % (0.0-0.9) H 05/23/17 05:26 Seg Neutrophils # 4.4 K/mm3 (1.8-7.7) 05/24/17 07:06 Seg Neutrophils # Man 2.0 K/mm3 (1.8-7.7) 05/23/17 05:26 Band Neutrophils # 6.4 K/mm3 05/23/17 05:26 Lymphocytes # (Manual) 0.1 K/mm3 (1.2-5.4) L 05/23/17 05:26 Abs React Lymphs (Man) 0.0 K/mm3 05/23/17 05:26 Monocytes # (Manual) 0.0 K/mm3 (0.0-0.8) 05/23/17 05:26 Eosinophils # (Manual) 0.2 K/mm3 (0.0-0.4) 05/23/17 05:26 Basophils # (Manual) 0.0 K/mm3 (0.0-0.1) 05/23/17 05:26 Metamyelocytes # 0.2 K/mm3 05/23/17 05:26 Myelocytes # 0.0 K/mm3 05/23/17 05:26 Promyelocytes # 0.0 K/mm3 05/23/17 05:26 Blast Cells # 0.0 K/mm3 05/23/17 05:26 WBC Morphology Not Reportable 05/23/17 05:26 Hypersegmented Neuts Not Reportable 05/23/17 05:26 Hyposegmented Neuts Not Reportable 05/23/17 05:26 Hypogranular Neuts Not Reportable 05/23/17 05:26 Smudge Cells Not Reportable 05/23/17 05:26 Toxic Granulation Not Reportable 05/23/17 05:26 Toxic Vacuolation Not Reportable 05/23/17 05:26 Dohle Bodies Not Reportable 05/23/17 05:26 Pelger-Huet Anomaly Not Reportable 05/23/17 05:26 Estella Rods Not Reportable 05/23/17 05:26 Platelet Estimate Appears normal 05/23/17 05:26 Clumped Platelets Not Reportable 05/23/17 05:26 Plt Clumps, EDTA Not Reportable 05/23/17 05:26 Large Platelets Not Reportable 05/23/17 05:26 Giant Platelets Not Reportable 05/23/17 05:26 Platelet Satelliting Not Reportable 05/23/17 05:26 Plt Morphology Comment Not Reportable 05/23/17 05:26 RBC Morphology Not Reportable 05/23/17 05:26 Dimorphic RBCs Not Reportable 05/23/17 05:26 Polychromasia Not Reportable 05/23/17 05:26 Hypochromasia Not Reportable 05/23/17 05:26 Poikilocytosis Not Reportable 05/23/17 05:26 Anisocytosis 1+ 05/23/17 05:26 Microcytosis Not Reportable 05/23/17 05:26 Macrocytosis Not Reportable 05/23/17 05:26 Spherocytes Not Reportable 05/23/17 05:26 Pappenheimer Bodies Not Reportable 05/23/17 05:26 Sickle Cells Not Reportable 05/23/17 05:26 Target Cells Not Reportable 05/23/17 05:26 Tear Drop Cells Not Reportable 05/23/17 05:26 Ovalocytes Not Reportable 05/23/17 05:26 Helmet Cells Not Reportable 05/23/17 05:26 [place] Bodies Not Reportable 05/23/17 05:26 [place] Rings Not Reportable 05/23/17 05:26 [place] Cells Not Reportable 05/23/17 05:26 Bite Cells Not Reportable 05/23/17 05:26 Crenated Cell Not Reportable 05/23/17 05:26 Elliptocytes Not Reportable 05/23/17 05:26 Acanthocytes (Spur) Not Reportable 05/23/17 05:26 Rouleaux Not Reportable 05/23/17 05:26 Hemoglobin C Crystals Not Reportable 05/23/17 05:26 Schistocytes Not Reportable 05/23/17 05:26 Malaria parasites Not Reportable 05/23/17 05:26 Mauro Bodies Not Reportable 05/23/17 05:26 Hem Pathologist Commnt No 05/23/17 05:26 PT 13.0 Sec. (12.2-14.9) 05/25/17 05:05 INR 0.94 (0.87-1.13) 05/25/17 05:05 APTT 30.9 Sec. (24.2-36.6) 05/25/17 05:05 POC ABG pH 7.348 (7.35-7.45) L 05/22/17 23:47 POC ABG pCO2 62.2 (35-45) H 05/22/17 23:47 POC ABG pO2 99 (80-105) 05/22/17 23:47 POC ABG HCO3 34.1 05/22/17 23:47 POC ABG Total CO2 36 05/22/17 23:47 POC ABG O2 Sat 97 05/22/17 23:47 POC ABG Base Excess 8 05/22/17 23:47 FiO2 28 % 05/22/17 23:47 Sodium 143 mmol/L (137-145) 05/25/17 05:05 Potassium 4.4 mmol/L (3.6-5.0) 05/25/17 05:05 Chloride 95.2 mmol/L (98-107) L 05/25/17 05:05 Carbon Dioxide 37 mmol/L (22-30) H 05/25/17 05:05 Anion Gap 15 mmol/L 05/25/17 05:05 BUN 16 mg/dL (7-17) 05/25/17 05:05 Creatinine 0.6 mg/dL (0.7-1.2) L 05/25/17 05:05 Estimated GFR > 60 ml/min 05/25/17 05:05 BUN/Creatinine Ratio 26.66 % 05/25/17 05:05 Glucose 88 mg/dL (65-100) 05/25/17 05:05 POC Glucose 106 (70-105) H 05/24/17 21:37 Calcium 9.7 mg/dL (8.4-10.2) 05/25/17 05:05 Magnesium 1.70 mg/dL (1.7-2.3) 05/22/17 18:48 Total Creatine Kinase 102 units/L (30-135) 05/23/17 05:27 CK-MB (CK-2) 2.5 ng/mL (0.0-4.0) 05/23/17 05:27 CK-MB (CK-2) Rel Index 2.4 (0-4) 05/23/17 05:27 Troponin T < 0.010 ng/mL (0.00-0.029) 05/23/17 05:27 NT-Pro-B Natriuret Pep 669.9 pg/mL (0-900) 05/22/17 18:48 - Imaging and Cardiology Imaging and Cardiology: Right and left heart cath ejection fraction of 40-45%, moderately severe pulmonary hypertension.
[2017-05-25] MEDS: NORCO 5/325 PO PRN (17:07)
[2017-05-25] MEDS: ASPIRIN PO SCH (17:29)
[2017-05-25] MEDS: COREG PO SCH ×3 (17:29→23:48)
[2017-05-25] MEDS: LOVENOX SUB-Q SCH (17:30)
[2017-05-25] MEDS: DIOVAN PO SCH ×2 (17:30→21:17)
[2017-05-25] MEDS: THALITONE PO SCH (17:31)
--- NOTE | 2017-05-25 19:22 | Event Note ---
Date: 05/25/17 Patient underwent a right and left heart catheterization, no complications. Findings: 1. Elevated right and left heart filling pressures. Moderate pulmonary hypertension. 2. No significant mitral valve gradient, no significant mitral stenosis. 3. No significant coronary disease, essentially angiographically normal coronary arteries. 4. Mild left ventricle systolic dysfunction, ejection fraction 40-45%. Recommend medical therapy and risk factor modification.
[2017-05-25] MEDS ORDERED: CLARITIN PO SCH (23:00)
[2017-05-26] MEDS: NORCO 5/325 PO PRN ×2 (00:53→06:43)
[2017-05-26] MEDS: LASIX IV SCH (06:42)
[2017-05-26 06:48] LABS: Anion Gap 15 mmol/L; Blood Urea Nitrogen 11 mg/dL (7-17); Calcium 9.3 mg/dL (8.4-10.2); Carbon Dioxide 35 mmol/L (22-30); Chloride 94.8 mmol/L (98-107); Glucose 133 mg/dL (65-100); Sodium 141 mmol/L (137-145)
[2017-05-26 06:50] LABS: Potassium 3.4 mmol/L (3.6-5.0)
--- NOTE | 2017-05-26 08:27 | Discharge Summary ---
Providers - Providers Date of Admission: 05/22/17 22:42 Date of discharge: 05/26/17 Attending physician: MEIR RODAS MD 05/25/17 14:11 Consult to Cardiac Rehabilitation [CONS] Routine Reason For Exam: Cardiac Rehab Evaluation Hospitalization Reason for admission: chf Condition: Stable Hospital course: 62 -year-old woman with a history of hypertension, asthma, anxiety comes emergency room with complaint of shortness of breath, dyspnea on exertion, PND and orthopnea and lower extremity edema.. She has not taken her antihypertensive over the last 4 months. Also complaining of chest pain in the epigastric area which she described as stabbing pain, intermittent in nature lasting 1 minute, intensity 5/10, no radiation and she cannot identify exacerbating or relieving factors. Admits to diaphoresis, no nausea vomiting, palpitation. On admission the patient was seen by cardiology was restarted Flagyl started on CHF protocol with diuresis. There was a slight adjustment of her medications she was taken off atenolol and started on Coreg. She did improve with diuresis. She proceeded to have a stress test which showed a partially reversible defect in the inferior wall and subsequently went for a cardiac catheterization which showed an EF of 40-45% but no further intervention was carried out. Her symptoms have clinically improved I did discuss extensively with the patient the need for medication compliance she verbalized understanding. We also discussed daily weights and fluid restrictions which she verbalized understanding. Discharge diagnosis Acute combined diastolic and systolic CHF-EF 40-45% Moderate Pulmonary hypertension Hypertensive emergency Morbid obesity Disposition: TO HOME OR SELFCARE Time spent for discharge: 35 mins Core Measure Documentation - Palliative Care Palliative Care/ Comfort Measures: Not Applicable - Core Measures Any of the following diagnoses?: heart failure - VTE Discharge Requirements Deep Vein Thrombosis/Pulmonary Embolism Present on Admission: No - Heart Failure Discharge Requirements STEPHANIE/ARB for LVSD if EF <40%: Yes Beta lacey at discharge: Yes Exam - Physical Exam Narrative exam: VITAL SIGNS: Reviewed. GENERAL: The patient appeared well nourished and normally developed. Vital signs as documented. HEAD: No signs of head trauma. EYES: Pupils are equal. Extraocular motions intact. EARS: Hearing grossly intact. MOUTH: Oropharynx is normal. NECK: No adenopathy, no JVD. CHEST: Chest with clear breath sounds bilaterally. No wheezes, rales, or rhonchi. CARDIAC: Regular rate and rhythm. S1 and S2, without murmurs, gallops, or rubs. VASCULAR: Trace bilateral pitting edema. Peripheral pulses normal and equal in all extremities. ABDOMEN: Soft, without detectable tenderness. No sign of distention. No rebound or guarding, and no masses palpated. Bowel Sounds normal. MUSCULOSKELETAL: Good range of motion of all major joints. Extremities without clubbing, cyanosis. Trace bilateral pitting edema. NEUROLOGIC EXAM: Alert and oriented x 3. No focal sensory or strength deficits. Speech normal. Follows commands. PSYCHIATRIC: Mood normal. SKIN: No rash or lesions. - Constitutional Vitals: Temp Pulse Resp BP Pulse Ox 98.9 F 66 20 122/74 92 05/26/17 03:10 05/26/17 03:10 05/26/17 03:10 05/26/17 03:10 05/26/17 03:10 Plan Activity: advance as tolerated, fall precautions Diet: low fat, low salt Special Instructions: restrict fluid intake to (1200cc/day), record daily weights, record daily BP diary Additional Instructions: Recommend RECHECH POTASSIUM IN 1-3 DAYS WITH PCP. Also follow with PCP for lipid profile result. Follow up with: OTILIA SANFORD [Other] - 3-5 Days MARKELL CHRISTOPHER MD [Staff Physician] - 7 Days Prescriptions: Aspirin [Adult Low Dose Aspirin EC] 81 mg PO DAILY #30 tablet. Carvedilol [Coreg] 6.25 mg PO BID #60 tablet Chlorthalidone [Thalitone] 25 mg PO QDAY #30 tablet HYDROcodone/APAP 5-325 [[place] 5-325 mg TAB] 1 each PO Q8HR PRN 3 Days PRN Reason: Pain, Moderate (4-6) Loratadine [Claritin] 10 mg PO QDAY@2200 #10 tablet Valsartan [Diovan] 160 mg PO BID #60 tablet
[2017-05-26 08:58] VITALS: BP 113/73
[2017-05-26] MEDS ORDERED: K-DUR PO NR (09:00)
[2017-05-26] MEDS: ASPIRIN PO SCH (09:54)
[2017-05-26] MEDS: COREG PO SCH (09:54)
[2017-05-26] MEDS: DIOVAN PO SCH (09:56)
[2017-05-26] MEDS: LOVENOX SUB-Q SCH (09:56)
[2017-05-26] MEDS: THALITONE PO SCH (09:56)
[2017-05-26] MEDS ORDERED: PROVENTIL IH PRN (11:34)
--- NOTE | 2017-05-26 11:52 | Progress Note ---
Assessment and Plan Acute diastolic heart failure right and left heart catheterization findings: 1. Elevated right and left heart filling pressures. Moderate pulmonary hypertension. 2. No significant mitral valve gradient, no significant mitral stenosis. 3. No significant coronary disease, essentially angiographically normal coronary arteries. 4. Mild left ventricle systolic dysfunction, ejection fraction 40-45%. Hypertension Morbid obesity Recommend: Continue current medications for her CHF with a preserved ejection fraction. Advised sodium/fluid restriction. Stable, cardiac looney, for discharge home today. Subjective Date of service: 05/26/17 Principal diagnosis: SOB, HTN urgency Interval history: Patient denies chest pain. Reports some shortness of breath on exertion but states her breathing has improved since admission. Objective Vital Signs Temp Pulse Pulse Pulse Pulse Resp BP 05/26/17 11:33 05/26/17 11:32 05/26/17 09:54 75 113/73 05/26/17 08:09 98.5 F 75 20 113/73 05/26/17 03:10 98.9 F 66 20 122/74 05/26/17 00:00 98.8 F 64 20 154/95 05/25/17 23:48 62 166/77 05/25/17 22:00 74 05/25/17 21:17 75 140/65 05/25/17 21:09 75 76 43 L 05/25/17 19:30 98.4 F 67 20 151/66 05/25/17 17:23 97.8 F 62 18 148/75 05/25/17 13:52 98.7 F 77 20 171/70 BP BP BP Pulse Ox 05/26/17 11:33 95 05/26/17 11:32 95 05/26/17 09:54 05/26/17 08:09 92 05/26/17 03:10 92 05/26/17 00:00 92 05/25/17 23:48 05/25/17 22:00 05/25/17 21:17 05/25/17 21:09 140/65 120/66 127/72 05/25/17 19:30 93 05/25/17 17:23 90 05/25/17 13:52 98 - Physical Examination General: No Apparent Distress HEENT: Positive: PERRL Cardiac: Positive: Reg Rate and Rhythm Neuro: Positive: Grossly Intact Incision: Cardiac Cath Site - Labs and Meds Comprehensive Metabolic Panel 05/26/17 Range/Units 06:14 Sodium 141 (137-145) mmol/L Potassium 3.4 L D (3.6-5.0) mmol/L Chloride 94.8 L (98-107) mmol/L Carbon Dioxide 35 H (22-30) mmol/L BUN 11 (7-17) mg/dL Creatinine 0.5 L (0.7-1.2) mg/dL Glucose 133 H (65-100) mg/dL Calcium 9.3 (8.4-10.2) mg/dL - Imaging and Cardiology EKG: image reviewed
== END 2017-05-26 12:44 | disposition home or self-care (01) | DRG 286 ==
LOC: ED 18:02 → 4A 22:42
PROVIDERS: ADMIT Internal Medicine; ATTEND Internal Medicine
PROC: 4A033R1 Measurement of Arterial Saturation, Peripheral, Percutaneous Approach (ICD-10-PCS; 2017-05-22)
PROC: 3E0234Z Introduction of Serum, Toxoid and Vaccine into Muscle, Percutaneous Approach (ICD-10-PCS; 2017-05-23)
PROC: 4A023N8 Measurement of Cardiac Sampling and Pressure, Bilateral, Percutaneous Approach (ICD-10-PCS; principal; 2017-05-25)
PROC: B2151ZZ Fluoroscopy of Left Heart using Low Osmolar Contrast (ICD-10-PCS; 2017-05-25)
PROC: B2111ZZ Fluoroscopy of Multiple Coronary Arteries using Low Osmolar Contrast (ICD-10-PCS; 2017-05-25)
DX: I16.1 Hypertensive emergency (principal); I50.41 Acute combined systolic (congestive) and diastolic (congestive) heart failure; I11.0 Hypertensive heart disease with heart failure; I27.2 Other secondary pulmonary hypertension; E66.01 Morbid (severe) obesity due to excess calories; J45.909 Unspecified asthma, uncomplicated; F41.9 Anxiety disorder, unspecified; Z68.41 Body mass index [BMI] 40.0-44.9, adult; Z71.3 Dietary counseling and surveillance; Z23 Encounter for immunization; Z88.5 Allergy status to narcotic agent; Z90.49 Acquired absence of other specified parts of digestive tract; Z90.710 Acquired absence of both cervix and uterus; Z82.49 Family history of ischemic heart disease and other diseases of the circulatory system
CPT/HCPCS: 36415; 36600; 71010; 78452; 80048; 82550; 82553; 82803; 82962; 83735; 83880; 84484; 85007; 85025; 85610; 85730; 90732; 93005; 93010; 93017; 93306; 93460; 94760; 96365; 96375; A9502; C1760; C1894; J0360; J1644; J1650; J1885; J1940; J2250; J2785; J2930; J3010; J3475; J7040; Q9967

== ENCOUNTER 2017-06-18 15:24 | Inpatient (IN) | payer MEDICAID ==
[2017-06-18 16:35] LABS: Basophils % (Auto) 0.9 % (0.0-1.8); Eosinophils % (Auto) 0.9 % (0.0-4.3); Hematocrit 37.7 % (30.3-42.9); Hemoglobin 12.1 gm/dl (10.1-14.3); Mean Corpuscular HGB Conc 32 % (30-34); Mean Corpuscular Hemoglobin 28 pg (28-32); Mean Corpuscular Volume 86 fl (79-97); Platelet Count 253 K/mm3 (140-440); Red Cell Distribution Width 15.2 % (13.2-15.2); White Blood Count 5.4 K/mm3 (4.5-11.0)
--- NOTE | 2017-06-18 16:43 | XRay Report ---
PORTABLE CHEST INDICATION: Chest pain. COMPARISON: 05/22/2017 FINDINGS: Portable, frontal chest radiograph again demonstrates exaggerated cardiomediastinal silhouette/mild cardiomegaly and congestive bronchovascular prominence. No large pleural effusions suspected. Stable bones. CONCLUSION: Stable cardiomegaly and pulmonary vascular congestion, as described. Thank you for the opportunity to participate in this patient's care.
[2017-06-18 16:56] LABS: Anion Gap 14 mmol/L; Blood Urea Nitrogen 8 mg/dL (7-17); Calcium 8.9 mg/dL (8.4-10.2); Carbon Dioxide 33 mmol/L (22-30); Chloride 102.3 mmol/L (98-107); Glucose 93 mg/dL (65-100); Potassium 3.4 mmol/L (3.6-5.0); Sodium 146 mmol/L (137-145)
[2017-06-18] MEDS ORDERED: CATAPRES PO ONE (17:36)
[2017-06-18] MEDS ORDERED: CATAPRES ONE (17:41)
[2017-06-18] MEDS ORDERED: LASIX IV ONE (18:42)
--- NOTE | 2017-06-18 18:50 | Emergency Department Report ---
HPI - General Chief Complaint: Chest Pain Time Seen by Provider: 06/18/17 18:31 - HPI HPI: Room 19 The patient is a 62-year-old female presenting with chief complaint shortness of breath chest pain dizziness. The patient states the past 2 weeks his shortness of breath. The past 2-3 days she has had intermittent substernal chest tightness. Patient does admit to occasional headache and dizziness. The patient states she has been without a diuretic for the past 3-4 months Location: [see above] Duration: [see above] Quality: Pressure Severity: Moderate Modifying factors: [see above] Context: [see above] Mode of transportation: unknown ED Past Medical Hx - Past Medical History Hx Hypertension: Yes Hx Congestive Heart Failure: Yes Hx Asthma: Yes - Surgical History Hx Cholecystectomy: Yes Additional Surgical History: Hysterectomy - Family History Family history: no significant - Social History Smoking Status: Former Smoker (none 4 years) Substance Use Type: None (denies illicit drug use) - Medications Home Medications: Home Medications Medication Instructions Recorded Confirmed Last Taken Type Aspirin [Adult Low Dose Aspirin EC] 81 mg PO DAILY #30 tablet. 05/26/17 Unknown Rx Carvedilol [Coreg] 6.25 mg PO BID #60 tablet 05/26/17 Unknown Rx Chlorthalidone [Thalitone] 25 mg PO QDAY #30 tablet 05/26/17 Unknown Rx HYDROcodone/APAP 5-325 [[place] 1 each PO Q8HR PRN 3 Days 05/26/17 Unknown Rx 5-325 mg TAB] Loratadine [Claritin] 10 mg PO QDAY@2200 #10 tablet 05/26/17 Unknown Rx Valsartan [Diovan] 160 mg PO BID #60 tablet 05/26/17 Unknown Rx ED Review of Systems ROS: Stated complaint: SUSSY Other details as noted in HPI Comment: All other systems reviewed and negative Constitutional: denies: chills, fever Eyes: denies: eye pain, eye discharge, vision change ENT: denies: ear pain, throat pain Respiratory: shortness of breath. denies: cough, wheezing Cardiovascular: chest pain Endocrine: no symptoms reported Gastrointestinal: denies: abdominal pain, nausea, diarrhea Genitourinary: denies: urgency, dysuria, discharge Musculoskeletal: denies: back pain, joint swelling, arthralgia Skin: denies: rash, lesions Neurological: headache. denies: weakness, paresthesias Psychiatric: denies: anxiety, depression Hematological/Lymphatic: denies: easy bleeding, easy bruising Physical Exam - Physical Exam Vital Signs: Vital Signs 06/18/17 06/18/17 06/18/17 15:24 16:14 17:40 Temperature 98.0 F Pulse Rate 86 78 Respiratory 22 20 Rate Blood Pressure 205/118 Blood Pressure 206/105 [Right] O2 Sat by Pulse 95 Oximetry 06/18/17 06/18/17 06/18/17 17:54 18:31 18:41 Temperature 98.5 F Pulse Rate 75 76 76 Respiratory 20 20 Rate Blood Pressure Blood Pressure 187/101 192/110 161/87 [Right] O2 Sat by Pulse 96 Oximetry Physical Exam: GENERAL: The patient is well-developed well-nourished female lying on stretcher not appearing to be in acute distress. [] HEENT: Normocephalic. Atraumatic. Extraocular motions are intact. Patient has moist mucous membranes. NECK: Supple. Trachea midline CHEST/LUNGS: Clear to auscultation. There is no respiratory distress noted. HEART/CARDIOVASCULAR: Regular. There is no tachycardia. There is no gallop rub or murmur. ABDOMEN: Abdomen is soft, nontender. Patient has normal bowel sounds. There is no abdominal distention. SKIN: There is no rash. There is 1-2+ bilateral lower extremity pitting edema. There is no diaphoresis. NEURO: The patient is awake, alert, and oriented. The patient is cooperative. The patient has normal speech MUSCULOSKELETAL: There is no evidence of acute injury. ED Course Vital Signs 06/18/17 06/18/17 06/18/17 15:24 16:14 17:40 Temperature 98.0 F Pulse Rate 86 78 Respiratory 22 20 Rate Blood Pressure 205/118 Blood Pressure 206/105 [Right] O2 Sat by Pulse 95 Oximetry 06/18/17 06/18/17 06/18/17 17:54 18:31 18:41 Temperature 98.5 F Pulse Rate 75 76 76 Respiratory 20 20 Rate Blood Pressure Blood Pressure 187/101 192/110 161/87 [Right] O2 Sat by Pulse 96 Oximetry ED Medical Decision Making - Lab Data Result diagrams: 06/18/17 16:24 06/18/17 16:24 Laboratory Tests 06/18/17 06/18/17 16:24 16:24 WBC 5.4 RBC 4.40 Hgb 12.1 Hct 37.7 MCV 86 MCH 28 MCHC 32 RDW 15.2 Plt Count 253 Lymph % (Auto) 23.6 [place] % (Auto) 8.0 H Eos % (Auto) 0.9 Baso % (Auto) 0.9 Lymph # 1.3 [place] # 0.4 Eos # 0.1 Baso # 0.0 Seg Neutrophils % 66.6 Seg Neutrophils # 3.6 Sodium 146 H Potassium 3.4 L Chloride 102.3 Carbon Dioxide 33 H Anion Gap 14 BUN 8 Creatinine 0.5 L Estimated GFR > 60 BUN/Creatinine Ratio 16.00 Glucose 93 Calcium 8.9 Troponin T < 0.010 - EKG Data -: EKG Interpreted by Me EKG shows normal: sinus rhythm Rate: normal - EKG Data When compared to previous EKG there are: no significant change Interpretation: unchanged when compared t (05/22/2017), other (PVC) - Radiology Data Radiology results: image reviewed (chest x-ray) interpreted by me: Chest [id number], hilar fullness/CHF - Medical Decision Making Patient had a cardiac catheterization performed May 2017 which did not reveal any coronary artery disease - Differential Diagnosis CHF exacerbation, pneumonia Critical care attestation.: If time is entered above; I have spent that time in minutes in the direct care of this critically ill patient, excluding procedure time. ED Disposition Clinical Impression: CHF exacerbation, Hypertensive urgency Disposition: DC-09 OP ADMIT IP TO THIS HOSP Is pt being admited?: Yes Does the pt Need Aspirin: Yes Condition: Fair Referrals: PRIMARY CARE, [Primary Care Provider] - 3-5 Days Time of Disposition: 18:52 (Hospitalist notified)
[2017-06-18] MEDS ORDERED: ASPIRIN PO ONE (18:52)
[2017-06-18] MEDS ORDERED: ZOFRAN IV ONE (21:45)
[2017-06-18] MEDS ORDERED: APRESOLINE IV ONE (22:05)
[2017-06-18] MEDS ORDERED: TYLENOL PO ONE (22:53)
[2017-06-18] MEDS ORDERED: TYLENOL ONE (22:58)
[2017-06-18] MEDS ORDERED: ZOFRAN IV PRN (23:33)
[2017-06-18] MEDS ORDERED: MILK OF MAGNESIA PO PRN (23:33)
[2017-06-18] MEDS ORDERED: DULCOLAX PR PRN (23:33)
--- NOTE | 2017-06-18 23:35 | History and Physical Report ---
History of Present Illness Date of examination: 06/18/17 Date of admission: 06/18/17 22:21 History of present illness: 63-year-old man with a history of hypertension, CHF, asthma, anxiety comes emergency room with complaints of shortness of breath, PND, orthopnea, lower extremity edema. The patient was just discharged from the hospital, she is noncompliant with her medications, she states she was unable to obtain them. She is status post cardiac cath Review Of Systems: Constitutional: no fever, chills, weight loss Ears, eyes, nose, mouth and throat: no nasal congestion, no nasal discharge, no sinus pressure, blurry vision, diplopia Neck: No neck pain or rigidity. Cardiovascular: no +orthopnea, no palpitations Respiratory: + shortness of breath,no cough Gastrointestinal: abdominal pain, hematochezia Genitourinary : no dysuria, frequency , hematuria Musculoskeletal: no joint swelling or muscle ache Integumentary: no rash, no pruritis Neurological: no parathesias, focal weakness Endocrine: no cold or heat intolerance, no polyuria or polydipsia Hematologic/Lymphatic: no easy bruising, no easy bleeding, no gland swelling Allergic/Immunologic: no urticaria, no angioedema. PAST MEDICAL HISTORY:hypertension, asthma, anxiety PAST SURGICAL HISTORY: Cholecystectomy, hysterectomy FAMILY HISTORY: Hypertension SOCIAL HISTORY: Denies alcohol, tobacco, drugs Medications and Allergies Allergies Allergy/AdvReac Type Severity Reaction Status Date / Time codeine Allergy Itching Verified 05/22/17 19:46 morphine Allergy Unknown Verified 05/22/17 19:46 Home Medications Medication Instructions Recorded Confirmed Last Taken Type Aspirin [Adult Low Dose Aspirin EC] 81 mg PO DAILY #30 tablet. 05/26/17 Unknown Rx Carvedilol [Coreg] 6.25 mg PO BID #60 tablet 05/26/17 Unknown Rx Chlorthalidone [Thalitone] 25 mg PO QDAY #30 tablet 05/26/17 Unknown Rx HYDROcodone/APAP 5-325 [[place] 1 each PO Q8HR PRN 3 Days 05/26/17 Unknown Rx 5-325 mg TAB] Loratadine [Claritin] 10 mg PO QDAY@2200 #10 tablet 05/26/17 Unknown Rx Valsartan [Diovan] 160 mg PO BID #60 tablet 05/26/17 Unknown Rx Active Meds: Active Medications Aspirin (Halfprin Ec) 81 mg PO DAILY [facility] Carvedilol (Coreg) 6.25 mg PO BID [facility] Enoxaparin Sodium (Lovenox) 30 mg SUB-Q QDAY [facility] Hydralazine HCl (Apresoline) 5 mg IV Q6H PRN PRN Reason: Hypertension Valsartan (Diovan) 160 mg PO BID [facility] Exam - Physical Exam Narrative exam: Gen. appearance: Patient lying in bed, no apparent distress HEENT: Normocephalic, atraumatic, pupils equally round and reactive to light, extraocular movement intact, and no sclericterus,. No JVD or thyromegaly or nodule,neck supple, no carotid bruit ,mucous membranes moist, no exudate or erythema Heart: S1, S2, regular rate and rhythm Lungs: crackles bilaterally, breathing comfortable Abdomen: Positive bowel sounds, nontender, nondistended, no organomegaly Extremity:+ edema, no cyanosis, clubbing Skin: No rash, nodules, warm, dry Neuro: Oriented 3, cranial nerves II-12 intact, speech is fluent, motor and sensory intact - Constitutional Vitals: Temp Pulse Resp BP Pulse Ox 98.5 F 97 H 28 H 182/98 87 06/18/17 18:41 06/18/17 23:00 06/18/17 23:00 06/18/17 23:00 06/18/17 23:00 Results - Labs CBC & Chem 7: 06/18/17 16:24 06/18/17 16:24 - Imaging and Cardiology EKG: image reviewed Chest x-ray: image reviewed Assessment and Plan Assessment CHF acute on chronic diastolic Hypertension malignant Asthma Anxiety Plan Admit to medicine Diuresed with IV Lasix Start beta lacey, aspirin, STEPHAINE inhibitor Check cardiac enzymes, consult cardiology, recent echo done Monitor I's and O's, daily weight Start IV hydralazine as needed for blood pressure Continue appropriate outpatient medications comes start DVT prophylaxis
[2017-06-19] MEDS: LASIX IV SCH ×2 (05:11→18:36)
[2017-06-19] MEDS ORDERED: APRESOLINE IV ONE (05:27)
[2017-06-19 06:15] LABS: Basophils % (Auto) 0.5 % (0.0-1.8); Hematocrit 37.3 % (30.3-42.9); Hemoglobin 11.9 gm/dl (10.1-14.3); Mean Corpuscular HGB Conc 32 % (30-34); Mean Corpuscular Hemoglobin 28 pg (28-32); Mean Corpuscular Volume 88 fl (79-97); Platelet Count 227 K/mm3 (140-440); Red Blood Count 4.26 M/mm3 (3.65-5.03); Red Cell Distribution Width 15.2 % (13.2-15.2)
[2017-06-19 07:08] LABS: Blood Urea Nitrogen 8 mg/dL (7-17); Calcium 8.7 mg/dL (8.4-10.2); Carbon Dioxide 27 mmol/L (22-30); Chloride 95.7 mmol/L (98-107); Glucose 82 mg/dL (65-100); Sodium 141 mmol/L (137-145)
[2017-06-19] MEDS: APRESOLINE IV PRN (07:20)
[2017-06-19 07:36] LABS: Anion Gap 23 mmol/L; Potassium 4.5 mmol/L (3.6-5.0)
--- NOTE | 2017-06-19 09:59 | Progress Note ---
Assessment and Plan Assessment and plan: 62-year-old woman with a past medical history of hypertension, CHF, asthma, anxiety disorder, who presents with dyspnea on exertion, orthopnea and lower extremity edema. Patient was recently admitted to hospital and admits to being noncompliant with her medications stating that she is unable to obtain them. Despite the fact that she is on Medicaid CHF acute on chronic diastolic * optimize meds, iv diuresis * She did not take any of her meds on discharge. She was discharged on chlorthalidone and she states that she does not take a single dose, advice and improved compliance Acute hypoxic respiratory failure * Continue oxygen supplementation, wean as tolerated Noncompliance with medications * She was advised and improved compliance * she was advised to fill her Rx at [facility] the [address] on her way home, when she is dc to avoid this problem in the future Hypertension malignant * Restart medications, IV meds as needed Asthma * Does not appear to be in exacerbation, nebs when necessary Anxiety disorder * Appears to be stable at this point. Continue to monitor Lack of domicile/homeless We'll speak to case management about possible retirement placement DVT prophylaxis Lovenox History Interval history: Patient states that she currently does not have a home. She did not fill any of her prescriptions when she was discharged from the hospital. She and her daughter and her granddaughter are squatting in someone's kitchen. She did not have the time to go and fill her prescription for chlorthalidone. She reports shortness of breath, and mild lower extremity swelling Hospitalist Physical - Physical exam Narrative exam: General.: Appears well, no distress, nontoxic HEENT: Moist mucous membranes, extraocular muscles intact, no lymphadenopathy Neck: supple Cardiac: S1-S2 heard Lungs: Bibasilar crackles Abdomen: soft , nontender, nondistended, bowel sounds positive Extremities: 1+ bipedal edema Skin: no rash or lesions Neurologic: no gross focal deficits Psych: appropriate behavior, appropriate mood, corporative, judgment intact - Constitutional Vitals: Temp Pulse Resp BP Pulse Ox 100.0 F H 92 H 20 149/77 94 06/19/17 07:51 06/19/17 07:51 06/19/17 07:51 06/19/17 07:51 06/19/17 07:51 Results - Labs CBC & Chem 7: 06/19/17 04:42 06/19/17 04:42 Labs: Laboratory Last Values WBC 8.0 K/mm3 (4.5-11.0) 06/19/17 04:42 RBC 4.26 M/mm3 (3.65-5.03) 06/19/17 04:42 Hgb 11.9 gm/dl (10.1-14.3) 06/19/17 04:42 Hct 37.3 % (30.3-42.9) 06/19/17 04:42 MCV 88 fl (79-97) 06/19/17 04:42 MCH 28 pg (28-32) 06/19/17 04:42 MCHC 32 % (30-34) 06/19/17 04:42 RDW 15.2 % (13.2-15.2) 06/19/17 04:42 Plt Count 227 K/mm3 (140-440) 06/19/17 04:42 Lymph % (Auto) 16.7 % (13.4-35.0) 06/19/17 04:42 [place] % (Auto) 9.2 % (0.0-7.3) H 06/19/17 04:42 Eos % (Auto) 1.0 % (0.0-4.3) 06/19/17 04:42 Baso % (Auto) 0.5 % (0.0-1.8) 06/19/17 04:42 Lymph # 1.3 K/mm3 (1.2-5.4) 06/19/17 04:42 [place] # 0.7 K/mm3 (0.0-0.8) 06/19/17 04:42 Eos # 0.1 K/mm3 (0.0-0.4) 06/19/17 04:42 Baso # 0.0 K/mm3 (0.0-0.1) 06/19/17 04:42 Seg Neutrophils % 72.6 % (40.0-70.0) H 06/19/17 04:42 Seg Neutrophils # 5.8 K/mm3 (1.8-7.7) 06/19/17 04:42 Sodium 141 mmol/L (137-145) 06/19/17 04:42 Potassium 4.5 mmol/L (3.6-5.0) D 06/19/17 04:42 Chloride 95.7 mmol/L (98-107) L 06/19/17 04:42 Carbon Dioxide 27 mmol/L (22-30) 06/19/17 04:42 Anion Gap 23 mmol/L 06/19/17 04:42 BUN 8 mg/dL (7-17) 06/19/17 04:42 Creatinine 0.5 mg/dL (0.7-1.2) L 06/19/17 04:42 Estimated GFR > 60 ml/min 06/19/17 04:42 BUN/Creatinine Ratio 16.00 % 06/19/17 04:42 Glucose 82 mg/dL (65-100) 06/19/17 04:42 Calcium 8.7 mg/dL (8.4-10.2) 06/19/17 04:42 Troponin T < 0.010 ng/mL (0.00-0.029) 06/18/17 21:28
[2017-06-19] MEDS ORDERED: LOVENOX SUB-Q SCH (10:00)
[2017-06-19] MEDS ORDERED: HALFPRIN EC PO SCH (10:00)
[2017-06-19] MEDS: BABY ASPIRIN PO SCH (10:25)
[2017-06-19] MEDS: TYLENOL PO PRN ×2 (10:25→20:59)
[2017-06-19] MEDS: DIOVAN PO SCH ×2 (10:26→20:59)
[2017-06-19] MEDS: COREG PO SCH ×2 (10:27→21:00)
[2017-06-19] MEDS: LOVENOX SUB-Q SCH (10:27)
--- NOTE | 2017-06-19 12:15 | Consultation ---
History of Present Illness Consult date: 06/19/17 Consult reason: congestive heart failure History of present illness: This is a 62yr old woman whom is admitted with Heart failure exacerbation thus this cardiac consultation. Patient was just discharge from this hospital a month ago. During that hospitalization she had a right and left heart catheterization Findings: 1. Elevated right and left heart filling pressures. Moderate pulmonary hypertension. 2. No significant mitral valve gradient, no significant mitral stenosis. 3. No significant coronary disease, essentially angiographically normal coronary arteries. 4. Mild left ventricle systolic dysfunction, ejection fraction 40-45%. Since discharge, patient admits to noncompliance with medications and dietary restrictions. She reports a weight gain of at least 15lbs. Medications and Allergies Allergies Allergy/AdvReac Type Severity Reaction Status Date / Time codeine Allergy Itching Verified 05/22/17 19:46 morphine Allergy Unknown Verified 05/22/17 19:46 Home Medications Medication Instructions Recorded Confirmed Last Taken Type Aspirin [Adult Low Dose Aspirin EC] 81 mg PO DAILY #30 tablet. 05/26/17 Unknown Rx Carvedilol [Coreg] 6.25 mg PO BID #60 tablet 05/26/17 Unknown Rx Chlorthalidone [Thalitone] 25 mg PO QDAY #30 tablet 05/26/17 Unknown Rx HYDROcodone/APAP 5-325 [[place] 1 each PO Q8HR PRN 3 Days 05/26/17 Unknown Rx 5-325 mg TAB] Loratadine [Claritin] 10 mg PO QDAY@2200 #10 tablet 05/26/17 Unknown Rx Valsartan [Diovan] 160 mg PO BID #60 tablet 05/26/17 Unknown Rx Active Meds: Active Medications Acetaminophen (Tylenol) 650 mg PO Q4H PRN PRN Reason: Pain MILD(1-3)/Fever >100.5/CONTRERAS Last Admin: 06/19/17 10:25 Dose: 650 mg Aspirin (Baby Aspirin) 81 mg PO QDAY [facility] Last Admin: 06/19/17 10:25 Dose: 81 mg Bisacodyl (Dulcolax) 10 mg MD QDAY PRN PRN Reason: Constipation unrelieved by MOM Carvedilol (Coreg) 6.25 mg PO BID [facility] Last Admin: 06/19/17 10:27 Dose: 6.25 mg Enoxaparin Sodium (Lovenox) 40 mg SUB-Q QDAY@1000 [facility] Last Admin: 06/19/17 10:27 Dose: 40 mg Furosemide (Lasix) 40 mg IV BID@0600,1800 [facility] Last Admin: 06/19/17 05:11 Dose: 40 mg Hydralazine HCl (Apresoline) 5 mg IV Q6H PRN PRN Reason: Hypertension Last Admin: 06/19/17 07:20 Dose: 5 mg Magnesium Hydroxide (Milk Of Magnesia) 30 ml PO Q4H PRN PRN Reason: Constipation Ondansetron HCl (Zofran) 4 mg IV Q8H PRN PRN Reason: N/V unrelieved by Reglan Valsartan (Diovan) 160 mg PO BID [facility] Last Admin: 06/19/17 10:26 Dose: 160 mg Physical Examination Vital Signs Pulse Resp 91 H 22 06/18/17 15:20 06/18/17 15:20 General appearance: no acute distress, obese Cardiac: Positive: Reg Rate and Rhythm Results 06/19/17 04:42 06/19/17 04:42 CBC 06/19/17 Range/Units 04:42 WBC 8.0 (4.5-11.0) K/mm3 RBC 4.26 (3.65-5.03) M/mm3 Hgb 11.9 (10.1-14.3) gm/dl Hct 37.3 (30.3-42.9) % Plt Count 227 (140-440) K/mm3 Lymph # 1.3 (1.2-5.4) K/mm3 [place] # 0.7 (0.0-0.8) K/mm3 Eos # 0.1 (0.0-0.4) K/mm3 Baso # 0.0 (0.0-0.1) K/mm3 Comprehensive Metabolic Panel 06/19/17 Range/Units 04:42 Sodium 141 (137-145) mmol/L Potassium 4.5 D (3.6-5.0) mmol/L Chloride 95.7 L (98-107) mmol/L Carbon Dioxide 27 (22-30) mmol/L BUN 8 (7-17) mg/dL Creatinine 0.5 L (0.7-1.2) mg/dL Glucose 82 (65-100) mg/dL Calcium 8.7 (8.4-10.2) mg/dL Assessment and Plan Acute diastolic heart failure secondary to noncompliance with medications and dietary restrictions. right and left heart catheterization 05/2017 Findings: 1. Elevated right and left heart filling pressures. Moderate pulmonary hypertension. 2. No significant mitral valve gradient, no significant mitral stenosis. 3. No significant coronary disease, essentially angiographically normal coronary arteries. 4. Mild left ventricle systolic dysfunction, ejection fraction 40-45%. Hypertension Morbid obesity
[2017-06-20] MEDS: APRESOLINE IV PRN (04:36)
[2017-06-20] MEDS: LASIX IV SCH ×2 (05:22→17:28)
--- NOTE | 2017-06-20 09:06 | Progress Note ---
Assessment and Plan Assessment and plan: 62-year-old woman with a past medical history of hypertension, CHF, asthma, anxiety disorder, who presents with dyspnea on exertion, orthopnea and lower extremity edema. Patient was recently admitted to hospital and admits to being noncompliant with her medications stating that she is unable to obtain them. Despite the fact that she is on Medicaid CHF acute on chronic diastolic * optimize meds, iv diuresis * She did not take any of her meds on discharge. She was discharged on chlorthalidone and she states that she does not take a single dose, advice and improved compliance Acute hypoxic respiratory failure * Continue oxygen supplementation, wean as tolerated Noncompliance with medications * She was advised and improved compliance * she was advised to fill her Rx at [facility] across the street on her way home, when she is dc to avoid this problem in the future Hypertension malignant * Restart medications, IV meds as needed Asthma * Does not appear to be in exacerbation, nebs when necessary Anxiety disorder * Appears to be stable at this point. Continue to monitor Lack of domicile/homeless We'll speak to case management about possible skilled nursing placement DVT prophylaxis Lovenox History Interval history: Patient states that she currently does not have a home. She did not fill any of her prescriptions when she was discharged from the hospital. She and her daughter and her granddaughter are squatting in someone's kitchen. She did not have the time to go and fill her prescription for chlorthalidone. She reports shortness of breath, and mild lower extremity swelling Hospitalist Physical - Physical exam Narrative exam: General.: Appears well, no distress, nontoxic HEENT: Moist mucous membranes, extraocular muscles intact, no lymphadenopathy Neck: supple Cardiac: S1-S2 heard Lungs: Bibasilar crackles Abdomen: soft , nontender, nondistended, bowel sounds positive Extremities: 1+ bipedal edema Skin: no rash or lesions Neurologic: no gross focal deficits Psych: appropriate behavior, appropriate mood, corporative, judgment intact - Constitutional Vitals: Temp Pulse Resp BP Pulse Ox 99.7 F H 72 20 144/71 98 06/20/17 07:19 06/20/17 07:19 06/20/17 07:19 06/20/17 07:19 06/20/17 07:19 General appearance: Present: no acute distress, obese Results - Labs CBC & Chem 7: 06/19/17 04:42 06/19/17 04:42 Labs: Laboratory Last Values WBC 8.0 K/mm3 (4.5-11.0) 06/19/17 04:42 RBC 4.26 M/mm3 (3.65-5.03) 06/19/17 04:42 Hgb 11.9 gm/dl (10.1-14.3) 06/19/17 04:42 Hct 37.3 % (30.3-42.9) 06/19/17 04:42 MCV 88 fl (79-97) 06/19/17 04:42 MCH 28 pg (28-32) 06/19/17 04:42 MCHC 32 % (30-34) 06/19/17 04:42 RDW 15.2 % (13.2-15.2) 06/19/17 04:42 Plt Count 227 K/mm3 (140-440) 06/19/17 04:42 Lymph % (Auto) 16.7 % (13.4-35.0) 06/19/17 04:42 [place] % (Auto) 9.2 % (0.0-7.3) H 06/19/17 04:42 Eos % (Auto) 1.0 % (0.0-4.3) 06/19/17 04:42 Baso % (Auto) 0.5 % (0.0-1.8) 06/19/17 04:42 Lymph # 1.3 K/mm3 (1.2-5.4) 06/19/17 04:42 [place] # 0.7 K/mm3 (0.0-0.8) 06/19/17 04:42 Eos # 0.1 K/mm3 (0.0-0.4) 06/19/17 04:42 Baso # 0.0 K/mm3 (0.0-0.1) 06/19/17 04:42 Seg Neutrophils % 72.6 % (40.0-70.0) H 06/19/17 04:42 Seg Neutrophils # 5.8 K/mm3 (1.8-7.7) 06/19/17 04:42 Sodium 141 mmol/L (137-145) 06/19/17 04:42 Potassium 4.5 mmol/L (3.6-5.0) D 06/19/17 04:42 Chloride 95.7 mmol/L (98-107) L 06/19/17 04:42 Carbon Dioxide 27 mmol/L (22-30) 06/19/17 04:42 Anion Gap 23 mmol/L 06/19/17 04:42 BUN 8 mg/dL (7-17) 06/19/17 04:42 Creatinine 0.5 mg/dL (0.7-1.2) L 06/19/17 04:42 Estimated GFR > 60 ml/min 06/19/17 04:42 BUN/Creatinine Ratio 16.00 % 06/19/17 04:42 Glucose 82 mg/dL (65-100) 06/19/17 04:42 Calcium 8.7 mg/dL (8.4-10.2) 06/19/17 04:42 Troponin T < 0.010 ng/mL (0.00-0.029) 06/18/17 21:28
[2017-06-20] MEDS: COREG PO SCH ×2 (09:14→21:20)
[2017-06-20] MEDS: DIOVAN PO SCH ×2 (09:15→21:20)
[2017-06-20] MEDS: BABY ASPIRIN PO SCH (09:15)
[2017-06-20] MEDS: LOVENOX SUB-Q SCH (09:16)
--- NOTE | 2017-06-20 12:12 | Progress Note ---
Assessment and Plan Acute diastolic heart failure secondary to noncompliance with medications and dietary restrictions. Right and left heart catheterization 05/2017 findings: 1. Elevated right and left heart filling pressures. Moderate pulmonary hypertension. 2. No significant mitral valve gradient, no significant mitral stenosis. 3. No significant coronary disease, essentially angiographically normal coronary arteries. 4. Mild left ventricle systolic dysfunction, ejection fraction 40-45%. Echocardiogram 05/2017: EF 60-65% Hypertension Morbid obesity Recommend: Continue current therapy. Subjective Date of service: 06/20/17 Interval history: No cardiac complaints. Dyspnea improving. Objective Vital Signs Temp Pulse Resp BP BP Pulse Ox 06/20/17 11:11 99.0 F 68 22 148/82 96 06/20/17 09:24 18 06/20/17 09:23 96 06/20/17 09:15 72 144/71 06/20/17 09:14 72 144/71 06/20/17 08:00 99.7 F H 70 20 144/71 97 06/20/17 07:20 78 97 06/20/17 07:19 99.7 F H 72 20 144/71 98 06/20/17 03:19 97.9 F 74 20 167/81 95 06/19/17 23:30 79 06/19/17 23:22 98.5 F 76 20 137/71 93 06/19/17 20:43 97 06/19/17 20:29 100.1 F H 85 20 170/80 94 06/19/17 16:36 98.4 F 78 18 132/68 95 06/19/17 12:44 98.8 F 20 140/72 - Physical Examination General: Appears Well Neck: Positive: neck supple Cardiac: Positive: Reg Rate and Rhythm Lungs: Positive: clear to auscultation Neuro: Positive: Grossly Intact Abdomen: Positive: Soft, Active Bowel Sounds Extremities: Absent: edema - Imaging and Cardiology EKG: image reviewed
[2017-06-20] MEDS: TYLENOL PO PRN (14:56)
[2017-06-21] MEDS: LASIX IV SCH ×2 (06:21→18:08)
[2017-06-21] MEDS: TYLENOL PO PRN (06:21)
--- NOTE | 2017-06-21 09:47 | Progress Note ---
Assessment and Plan Assessment and plan: 62-year-old woman with a past medical history of hypertension, CHF, asthma, anxiety disorder, who presents with dyspnea on exertion, orthopnea and lower extremity edema. Patient was recently admitted to hospital and admits to being noncompliant with her medications stating that she is unable to obtain them. Despite the fact that she is on Medicaid CHF acute on chronic diastolic * optimize meds, iv diuresis * She did not take any of her meds on discharge. She was discharged on chlorthalidone and she states that she does not take a single dose, advice and improved compliance Acute hypoxic respiratory failure * Continue oxygen supplementation, wean as tolerated Noncompliance with medications * She was advised and improved compliance * she was advised to fill her Rx at [facility] across the [address] on her way home, when she is dc to avoid this problem in the future Hypertensive urgency * optimize medications, IV meds as needed Asthma * Does not appear to be in exacerbation, nebs when necessary Anxiety disorder * Appears to be stable at this point. Continue to monitor The patient states now that she actually had a place to go, and she does not need intermediate placement DVT prophylaxis Lovenox History Interval history: Patient states that she currently does not have a home. She did not fill any of her prescriptions when she was discharged from the hospital. She and her daughter and her granddaughter are squatting in someone's kitchen. She did not have the time to go and fill her prescription for chlorthalidone. She reports shortness of breath, and mild lower extremity swelling Hospitalist Physical - Physical exam Narrative exam: General.: Appears well, no distress, nontoxic HEENT: Moist mucous membranes, extraocular muscles intact, no lymphadenopathy Neck: supple Cardiac: S1-S2 heard Lungs: Bibasilar crackles Abdomen: soft , nontender, nondistended, bowel sounds positive Extremities: 1+ bipedal edema Skin: no rash or lesions Neurologic: no gross focal deficits Psych: appropriate behavior, appropriate mood, corporative, judgment intact - Constitutional Vitals: Temp Pulse Resp BP Pulse Ox 98.9 F 62 12 160/82 95 06/21/17 05:59 06/21/17 05:59 06/21/17 05:59 06/21/17 05:59 06/21/17 09:43 General appearance: Present: no acute distress, obese Results - Labs CBC & Chem 7: 06/19/17 04:42 06/19/17 04:42 Labs: Laboratory Last Values WBC 8.0 K/mm3 (4.5-11.0) 06/19/17 04:42 RBC 4.26 M/mm3 (3.65-5.03) 06/19/17 04:42 Hgb 11.9 gm/dl (10.1-14.3) 06/19/17 04:42 Hct 37.3 % (30.3-42.9) 06/19/17 04:42 MCV 88 fl (79-97) 06/19/17 04:42 MCH 28 pg (28-32) 06/19/17 04:42 MCHC 32 % (30-34) 06/19/17 04:42 RDW 15.2 % (13.2-15.2) 06/19/17 04:42 Plt Count 227 K/mm3 (140-440) 06/19/17 04:42 Lymph % (Auto) 16.7 % (13.4-35.0) 06/19/17 04:42 [place] % (Auto) 9.2 % (0.0-7.3) H 06/19/17 04:42 Eos % (Auto) 1.0 % (0.0-4.3) 06/19/17 04:42 Baso % (Auto) 0.5 % (0.0-1.8) 06/19/17 04:42 Lymph # 1.3 K/mm3 (1.2-5.4) 06/19/17 04:42 [place] # 0.7 K/mm3 (0.0-0.8) 06/19/17 04:42 Eos # 0.1 K/mm3 (0.0-0.4) 06/19/17 04:42 Baso # 0.0 K/mm3 (0.0-0.1) 06/19/17 04:42 Seg Neutrophils % 72.6 % (40.0-70.0) H 06/19/17 04:42 Seg Neutrophils # 5.8 K/mm3 (1.8-7.7) 06/19/17 04:42 Sodium 141 mmol/L (137-145) 06/19/17 04:42 Potassium 4.5 mmol/L (3.6-5.0) D 06/19/17 04:42 Chloride 95.7 mmol/L (98-107) L 06/19/17 04:42 Carbon Dioxide 27 mmol/L (22-30) 06/19/17 04:42 Anion Gap 23 mmol/L 06/19/17 04:42 BUN 8 mg/dL (7-17) 06/19/17 04:42 Creatinine 0.5 mg/dL (0.7-1.2) L 06/19/17 04:42 Estimated GFR > 60 ml/min 06/19/17 04:42 BUN/Creatinine Ratio 16.00 % 06/19/17 04:42 Glucose 82 mg/dL (65-100) 06/19/17 04:42 Calcium 8.7 mg/dL (8.4-10.2) 06/19/17 04:42 Troponin T < 0.010 ng/mL (0.00-0.029) 06/18/17 21:28
--- NOTE | 2017-06-21 10:14 | Progress Note ---
Assessment and Plan Acute diastolic heart failure secondary to noncompliance with medications and dietary restrictions. Right and left heart catheterization 05/2017 findings: 1. Elevated right and left heart filling pressures. Moderate pulmonary hypertension. 2. No significant mitral valve gradient, no significant mitral stenosis. 3. No significant coronary disease, essentially angiographically normal coronary arteries. 4. Mild left ventricle systolic dysfunction, ejection fraction 40-45%. Echocardiogram 05/2017: EF 60-65% Hypertension Morbid obesity Likely FRANCES/Obesity hypoventilation syndrome Noncompliance Recommend: Continue current therapy. Pt will outpatient FRANCES evaluation Subjective Date of service: 06/21/17 Interval history: Pt reports dyspnea is much improved as long as she keeps her oxygen on Objective Vital Signs Temp Pulse Resp BP Pulse Ox 06/21/17 09:43 95 06/21/17 09:40 95 06/21/17 07:33 99.0 F 73 20 139/68 96 06/21/17 05:59 98.9 F 62 12 160/82 97 06/21/17 00:27 149/96 06/20/17 23:43 98.9 F 69 192/98 98 06/20/17 21:20 63 22 186/86 96 06/20/17 21:16 98.1 F 64 186/86 98 06/20/17 21:05 95 06/20/17 20:00 76 06/20/17 15:48 98.9 F 78 22 159/86 89 06/20/17 14:56 18 06/20/17 12:00 81 06/20/17 11:11 99.0 F 68 22 148/82 96 - Physical Examination General: Appears Well Neck: Positive: neck supple Cardiac: Positive: Reg Rate and Rhythm Lungs: Positive: Decreased Breath Sounds Abdomen: Positive: Soft, Active Bowel Sounds Extremities: Absent: edema - Imaging and Cardiology EKG: image reviewed
[2017-06-21] MEDS: LOVENOX SUB-Q SCH (10:55)
[2017-06-21] MEDS: COREG PO SCH ×2 (10:55→22:50)
[2017-06-21] MEDS: DIOVAN PO SCH ×2 (10:55→22:50)
[2017-06-21] MEDS: BABY ASPIRIN PO SCH (10:55)
[2017-06-21] MEDS: PROCARDIA XL PO SCH ×2 (13:00→22:50)
[2017-06-22] MEDS: LASIX IV SCH ×2 (06:32→18:36)
[2017-06-22 06:39] LABS: Blood Urea Nitrogen 9 mg/dL (7-17); Calcium 9.2 mg/dL (8.4-10.2); Chloride 88.4 mmol/L (98-107); Glucose 93 mg/dL (65-100); Potassium 3.1 mmol/L (3.6-5.0); Sodium 142 mmol/L (137-145)
[2017-06-22 06:44] LABS: Anion Gap 10 mmol/L; Carbon Dioxide 47 mmol/L (22-30)
--- NOTE | 2017-06-22 08:22 | Progress Note ---
Assessment and Plan Assessment and plan: 62-year-old woman with a past medical history of hypertension, CHF, asthma, anxiety disorder, who presents with dyspnea on exertion, orthopnea and lower extremity edema. Patient was recently admitted to hospital and admits to being noncompliant with her medications stating that she is unable to obtain them. Despite the fact that she is on Medicaid CHF acute on chronic diastolic * optimize meds, iv diuresis * She did not take any of her meds on discharge. She was discharged on chlorthalidone and she states that she does not take a single dose, adviced on improved compliance Acute hypoxic respiratory failure * Continue oxygen supplementation, wean as tolerated * suspect FRANCES and hypoventilation due to obesity, obtain ABG on room and get pulmonary consult * will likely need NIV for home Hypokalemia * Replete by mouth Noncompliance with medications * She was advised and improved compliance * she was advised to fill her Rx at [facility] across the street on her way home, when she is dc to avoid this problem in the future Hypertensive urgency * optimize medications, IV meds as needed Asthma * Does not appear to be in exacerbation, nebs when necessary Anxiety disorder * Appears to be stable at this point. Continue to monitor The patient states now that she actually had a place to go, and she does not need group home placement DVT prophylaxis Lovenox History Interval history: Patient states that she currently does not have a home. She did not fill any of her prescriptions when she was discharged from the hospital. She and her daughter and her granddaughter are squatting in someone's kitchen. She did not have the time to go and fill her prescription for chlorthalidone. She reports shortness of breath, and mild lower extremity swelling Hospitalist Physical - Physical exam Narrative exam: General.: Appears well, no distress, nontoxic HEENT: Moist mucous membranes, extraocular muscles intact, no lymphadenopathy Neck: supple Cardiac: S1-S2 heard Lungs: Bibasilar crackles Abdomen: soft , nontender, nondistended, bowel sounds positive Extremities: 1+ bipedal edema Skin: no rash or lesions Neurologic: no gross focal deficits Psych: appropriate behavior, appropriate mood, corporative, judgment intact - Constitutional Vitals: Temp Pulse Resp BP Pulse Ox 98.3 F 68 20 128/70 92 06/22/17 04:10 06/22/17 04:10 06/22/17 04:10 06/22/17 04:10 06/22/17 04:10 General appearance: Present: no acute distress, obese Results - Labs CBC & Chem 7: 06/19/17 04:42 06/23/17 04:44 Labs: Laboratory Last Values WBC 8.0 K/mm3 (4.5-11.0) 06/19/17 04:42 RBC 4.26 M/mm3 (3.65-5.03) 06/19/17 04:42 Hgb 11.9 gm/dl (10.1-14.3) 06/19/17 04:42 Hct 37.3 % (30.3-42.9) 06/19/17 04:42 MCV 88 fl (79-97) 06/19/17 04:42 MCH 28 pg (28-32) 06/19/17 04:42 MCHC 32 % (30-34) 06/19/17 04:42 RDW 15.2 % (13.2-15.2) 06/19/17 04:42 Plt Count 227 K/mm3 (140-440) 06/19/17 04:42 Lymph % (Auto) 16.7 % (13.4-35.0) 06/19/17 04:42 [place] % (Auto) 9.2 % (0.0-7.3) H 06/19/17 04:42 Eos % (Auto) 1.0 % (0.0-4.3) 06/19/17 04:42 Baso % (Auto) 0.5 % (0.0-1.8) 06/19/17 04:42 Lymph # 1.3 K/mm3 (1.2-5.4) 06/19/17 04:42 [place] # 0.7 K/mm3 (0.0-0.8) 06/19/17 04:42 Eos # 0.1 K/mm3 (0.0-0.4) 06/19/17 04:42 Baso # 0.0 K/mm3 (0.0-0.1) 06/19/17 04:42 Seg Neutrophils % 72.6 % (40.0-70.0) H 06/19/17 04:42 Seg Neutrophils # 5.8 K/mm3 (1.8-7.7) 06/19/17 04:42 Sodium 142 mmol/L (137-145) 06/22/17 04:39 Potassium 3.1 mmol/L (3.6-5.0) L D 06/22/17 04:39 Chloride 88.4 mmol/L (98-107) L 06/22/17 04:39 Carbon Dioxide 47 mmol/L (22-30) H* D 06/22/17 04:39 Anion Gap 10 mmol/L 06/22/17 04:39 BUN 9 mg/dL (7-17) 06/22/17 04:39 Creatinine 0.4 mg/dL (0.7-1.2) L 06/22/17 04:39 Estimated GFR > 60 ml/min 06/22/17 04:39 BUN/Creatinine Ratio 22.50 % 06/22/17 04:39 Glucose 93 mg/dL (65-100) 06/22/17 04:39 Calcium 9.2 mg/dL (8.4-10.2) 06/22/17 04:39 Troponin T < 0.010 ng/mL (0.00-0.029) 06/18/17 21:28
[2017-06-22] MEDS ORDERED: K-DUR PO SCH (10:00)
[2017-06-22] MEDS: PROCARDIA XL PO SCH ×2 (10:51→22:42)
[2017-06-22] MEDS: BABY ASPIRIN PO SCH (10:51)
[2017-06-22] MEDS: COREG PO SCH ×2 (10:52→22:42)
[2017-06-22] MEDS: LOVENOX SUB-Q SCH (10:52)
[2017-06-22] MEDS: DIOVAN PO SCH ×3 (10:52→22:38)
[2017-06-22 11:42] LABS: ISTAT Base Excess > 30; ISTAT DEVICE 0; ISTAT HCO3 54.9; ISTAT PCO2 68.9 (35-45); ISTAT PO2 50 (80-105); ISTAT SO2 86; ISTAT TCO2 > 50
--- NOTE | 2017-06-22 13:03 | Progress Note ---
Assessment and Plan Acute diastolic heart failure secondary to noncompliance with medications and dietary restrictions. right and left heart catheterization 05/2017 Findings: 1. Elevated right and left heart filling pressures. Moderate pulmonary hypertension. 2. No significant mitral valve gradient, no significant mitral stenosis. 3. No significant coronary disease, essentially angiographically normal coronary arteries. 4. Mild left ventricle systolic dysfunction, ejection fraction 40-45%. Hypertension Morbid obesity Likely FRANCES/Obesity hypoventilation syndrome Noncompliance Conservative cardiac management. Subjective Date of service: 06/22/17 Interval history: Patient reports her breathing is better. Objective Vital Signs Temp Pulse Resp BP BP Pulse Ox 06/22/17 10:47 86 06/22/17 10:15 95 06/22/17 04:10 98.3 F 68 20 128/70 92 06/21/17 22:50 70 122/78 06/21/17 22:30 95 06/21/17 19:56 98.5 F 59 L 22 122/78 93 06/21/17 14:44 98.7 F 61 20 118/62 97 - Physical Examination General: No Apparent Distress Cardiac: Positive: Reg Rate and Rhythm Neuro: Positive: Grossly Intact - Labs and Meds Comprehensive Metabolic Panel 06/22/17 Range/Units 04:39 Sodium 142 (137-145) mmol/L Potassium 3.1 L D (3.6-5.0) mmol/L Chloride 88.4 L (98-107) mmol/L Carbon Dioxide 47 H* D (22-30) mmol/L BUN 9 (7-17) mg/dL Creatinine 0.4 L (0.7-1.2) mg/dL Glucose 93 (65-100) mg/dL Calcium 9.2 (8.4-10.2) mg/dL - Imaging and Cardiology EKG: image reviewed
--- NOTE | 2017-06-22 13:24 | Consultation ---
History of Present Illness Reason for consult: dyspnea, other (obesity hypoventilation syndrome) History of present illness: Called to evaluate case of a 62-year-old -[place] female, admitted with chance of breath evidence of congestive heart failure and hypoxemia. Initial arterial blood gases show evidence of hypercapnia and hypoxemia, raising concerns also for obesity hypoventilation syndrome. She had recently been released from the hospital for heart failure treatment and was readmitted after knee onset of symptoms and reportedly not being able to get her prescription and start treatment as ordered. On further review, she is also taking medications for her knee pain but cannot recall clearly her treatment or drug. She reports history of chronic dyspnea, dyspnea on recumbency and also heavy snoring with breathing problems at night. The patient underwent cardiac catheterization showin. Elevated right and left heart filling pressures. Moderate pulmonary hypertension ( PAWP ?). 2. No significant mitral valve gradient, no significant mitral stenosis. 3. No significant coronary disease, essentially angiographically normal coronary arteries. 4. Mild left ventricle systolic dysfunction, ejection fraction 40-45%. Called to evaluate. She denies prior history of respiratory problems except for occasional "asthma", for which she uses a rescue inhaler. She had never been on oxygen treatment before. Medications and Allergies Allergies Allergy/AdvReac Type Severity Reaction Status Date / Time codeine Allergy Itching Verified 05/22/17 19:46 morphine Allergy Unknown Verified 05/22/17 19:46 Home Medications Medication Instructions Recorded Confirmed Last Taken Type Aspirin [Adult Low Dose Aspirin EC] 81 mg PO DAILY #30 tablet. 05/26/17 3 Days Ago Rx Carvedilol [Coreg] 6.25 mg PO BID #60 tablet 05/26/17 06/19/17 3 Days Ago Rx Chlorthalidone [Thalitone] 25 mg PO QDAY #30 tablet 05/26/17 06/19/17 3 Days Ago Rx Loratadine [Claritin] 10 mg PO QDAY@2200 #10 tablet 05/26/17 06/19/17 3 Days Ago Rx Valsartan [Diovan] 160 mg PO BID #60 tablet 05/26/17 06/19/17 3 Days Ago Rx Active Meds: Active Medications Acetaminophen (Tylenol) 650 mg PO Q4H PRN PRN Reason: Pain MILD(1-3)/Fever >100.5/CONTRERAS Last Admin: 06/21/17 06:21 Dose: 650 mg Aspirin (Baby Aspirin) 81 mg PO QDAY [facility] Last Admin: 06/22/17 10:51 Dose: 81 mg Bisacodyl (Dulcolax) 10 mg [place] QDAY PRN PRN Reason: Constipation unrelieved by MOM Carvedilol (Coreg) 6.25 mg PO BID [facility] Last Admin: 06/22/17 10:52 Dose: 6.25 mg Enoxaparin Sodium (Lovenox) 40 mg SUB-Q QDAY@1000 [facility] Last Admin: 06/22/17 10:52 Dose: 40 mg Furosemide (Lasix) 40 mg IV BID@0600,1800 [facility] Last Admin: 06/22/17 06:32 Dose: 40 mg Hydralazine HCl (Apresoline) 5 mg IV Q6H PRN PRN Reason: Hypertension Last Admin: 06/20/17 04:36 Dose: 5 mg Magnesium Hydroxide (Milk Of Magnesia) 30 ml PO Q4H PRN PRN Reason: Constipation Nifedipine (Procardia Xl) 30 mg PO Q12HR [facility] Last Admin: 06/22/17 10:51 Dose: 30 mg Ondansetron HCl (Zofran) 4 mg IV Q8H PRN PRN Reason: N/V unrelieved by Reglan Potassium Chloride (K-Dur) 40 meq PO QDAY [facility] Last Admin: 06/22/17 10:51 Dose: 40 meq Valsartan (Diovan) 160 mg PO BID [facility] Last Admin: 06/22/17 10:59 Dose: Not Given Physical Examination Vital signs: Vital Signs Pulse Resp 91 H 22 06/18/17 15:20 06/18/17 15:20 General appearance: no acute distress, alert, other (severely morbidly obese) Eyes: non-icteric ENT: oropharynx moist, other (Mallampati 3) Neck: supple, no lymphadenopathy, no JVD Ascultation: Bilateral: clear, diminished breath sounds Cardiovascular: regular rate and rhythm Gastrointestinal: normoactive bowel sounds, non-distended Extremities: no cyanosis, no edema, no ischemia or petechiae Musculoskeletal: no deformities normal mental status, non-focal exam, pupils equal and round, CN II-XII normal, motor strength normal and anxious Results - Laboratory Findings CBC and BMP: 06/19/17 04:42 06/22/17 04:39 ABG POC ABG pH 7.510 (7.35-7.45) H 06/22/17 10:47 POC ABG pCO2 68.9 (35-45) H 06/22/17 10:47 POC ABG pO2 50 (80-105) L 06/22/17 10:47 POC ABG HCO3 54.9 06/22/17 10:47 POC ABG Total CO2 > 50 06/22/17 10:47 POC ABG O2 Sat 86 06/22/17 10:47 Abnormal lab findings: Abnormal Labs 06/19/17 06/19/17 06/22/17 04:42 04:42 04:39 [place] % (Auto) 9.2 H Seg Neutrophils % 72.6 H POC ABG pH POC ABG pCO2 POC ABG pO2 Potassium 3.1 L D Chloride 95.7 L 88.4 L Carbon Dioxide 47 H* D Creatinine 0.5 L 0.4 L 06/22/17 10:47 [place] % (Auto) Seg Neutrophils % POC ABG pH 7.510 H POC ABG pCO2 68.9 H POC ABG pO2 50 L Potassium Chloride Carbon Dioxide Creatinine - Diagnostic Findings Chest x-ray: report reviewed Assessment and Plan Hypoxemia with hypercapnia, with normal A-a gradient. Suggestive of with obesity hypoventilation syndrome. Another consideration is hypoventilation in the setting of respiratory suppressant drug Metabolic alkalosis and respiratory acidosis Congestive heart failure with exacerbation Pulmonary hypertension. Possibly group 2/3 Severe morbid obesity History of asthma. Recommendations Continue CHF management per cardiology recommendations Repeat ABGs on room air prior to discharge. If hypercapnia goes back to normal then, OHS is unlikely and other possible etiologies are to be considered Ambulate patient on room air and check need for portable oxygen Albuterol 4 times a day as needed if bronchospasm noted His outpatient primary function tests for evaluation with dyspnea and OHS Outpatient sleep study for evaluation of sleep apnea DVT prophylaxis Diet/weight reduction program Recommendation discussed with patient in detail. All questions answered. She can be seen as an outpatient at the pulmonary clinic for evaluation of this more extended workup. Thanks
[2017-06-23] MEDS: PERCOCET 5/325 PO PRN ×2 (00:21→08:48)
[2017-06-23 05:57] LABS: Blood Urea Nitrogen 11 mg/dL (7-17); Calcium 9.4 mg/dL (8.4-10.2); Chloride 92.3 mmol/L (98-107); Glucose 85 mg/dL (65-100); Potassium 3.3 mmol/L (3.6-5.0); Sodium 146 mmol/L (137-145)
[2017-06-23 06:00] LABS: Anion Gap 10 mmol/L; Carbon Dioxide 47 mmol/L (22-30)
[2017-06-23] MEDS: LASIX IV SCH ×2 (06:07→18:07)
--- NOTE | 2017-06-23 08:25 | Progress Note ---
Assessment and Plan Assessment and plan: 62-year-old woman with a past medical history of hypertension, CHF, asthma, anxiety disorder, who presents with dyspnea on exertion, orthopnea and lower extremity edema. Patient was recently admitted to hospital and admits to being noncompliant with her medications stating that she is unable to obtain them. Despite the fact that she is on Medicaid CHF acute on chronic diastolic * optimize meds, iv diuresis * She did not take any of her meds on discharge. She was discharged on chlorthalidone and she states that she does not take a single dose, adviced on improved compliance Acute hypoxic respiratory failure * Continue oxygen supplementation, wean as tolerated * suspect FRANCES and hypoventilation due to obesity, ABG on room air showed respiratory acidosis and hypoxia * Chest medicine consult appreciated, repeat ABG tomorrow * Patient hypoxic at rest, on hypoxia worsens with activity, this was documented by the RN today * will likely need NIV for home Hypokalemia * Replete by mouth Noncompliance with medications * She was advised and improved compliance * she was advised to fill her Rx at [facility] across the street on her way home, when she is dc to avoid this problem in the future Hypertensive urgency * optimize medications, IV meds as needed Asthma * Does not appear to be in exacerbation, nebs when necessary Anxiety disorder * Appears to be stable at this point. Continue to monitor The patient states now that she actually had a place to go, and she does not need long term placement DVT prophylaxis Lovenox History Interval history: She reports shortness of breath, and mild lower extremity swelling Hospitalist Physical - Physical exam Narrative exam: General.: Appears well, no distress, nontoxic HEENT: Moist mucous membranes, extraocular muscles intact, no lymphadenopathy Neck: supple Cardiac: S1-S2 heard Lungs: Bibasilar crackles Abdomen: soft , nontender, nondistended, bowel sounds positive Extremities: trace bipedal edema Skin: no rash or lesions Neurologic: no gross focal deficits Psych: appropriate behavior, appropriate mood, corporative, judgment intact - Constitutional Vitals: Temp Pulse Resp BP Pulse Ox 97.7 F 72 18 124/72 95 06/23/17 04:10 06/23/17 04:10 06/23/17 04:10 06/23/17 04:10 06/23/17 04:10 General appearance: Present: no acute distress, obese Results - Labs CBC & Chem 7: 06/19/17 04:42 06/23/17 04:44 Labs: Laboratory Last Values WBC 8.0 K/mm3 (4.5-11.0) 06/19/17 04:42 RBC 4.26 M/mm3 (3.65-5.03) 06/19/17 04:42 Hgb 11.9 gm/dl (10.1-14.3) 06/19/17 04:42 Hct 37.3 % (30.3-42.9) 06/19/17 04:42 MCV 88 fl (79-97) 06/19/17 04:42 MCH 28 pg (28-32) 06/19/17 04:42 MCHC 32 % (30-34) 06/19/17 04:42 RDW 15.2 % (13.2-15.2) 06/19/17 04:42 Plt Count 227 K/mm3 (140-440) 06/19/17 04:42 Lymph % (Auto) 16.7 % (13.4-35.0) 06/19/17 04:42 [place] % (Auto) 9.2 % (0.0-7.3) H 06/19/17 04:42 Eos % (Auto) 1.0 % (0.0-4.3) 06/19/17 04:42 Baso % (Auto) 0.5 % (0.0-1.8) 06/19/17 04:42 Lymph # 1.3 K/mm3 (1.2-5.4) 06/19/17 04:42 [place] # 0.7 K/mm3 (0.0-0.8) 06/19/17 04:42 Eos # 0.1 K/mm3 (0.0-0.4) 06/19/17 04:42 Baso # 0.0 K/mm3 (0.0-0.1) 06/19/17 04:42 Seg Neutrophils % 72.6 % (40.0-70.0) H 06/19/17 04:42 Seg Neutrophils # 5.8 K/mm3 (1.8-7.7) 06/19/17 04:42 POC ABG pH 7.510 (7.35-7.45) H 06/22/17 10:47 POC ABG pCO2 68.9 (35-45) H 06/22/17 10:47 POC ABG pO2 50 (80-105) L 06/22/17 10:47 POC ABG HCO3 54.9 06/22/17 10:47 POC ABG Total CO2 > 50 06/22/17 10:47 POC ABG O2 Sat 86 06/22/17 10:47 POC ABG Base Excess > 30 06/22/17 10:47 FiO2 21 % 06/22/17 10:47 Sodium 142 mmol/L (137-145) 06/22/17 04:39 Potassium 3.1 mmol/L (3.6-5.0) L D 06/22/17 04:39 Chloride 88.4 mmol/L (98-107) L 06/22/17 04:39 Carbon Dioxide 47 mmol/L (22-30) H* 06/23/17 04:44 Anion Gap 10 mmol/L 06/23/17 04:44 BUN 11 mg/dL (7-17) 06/23/17 04:44 Creatinine 0.4 mg/dL (0.7-1.2) L 06/23/17 04:44 Estimated GFR > 60 ml/min 06/23/17 04:44 BUN/Creatinine Ratio 27.50 % 06/23/17 04:44 Glucose 85 mg/dL (65-100) 06/23/17 04:44 Calcium 9.4 mg/dL (8.4-10.2) 06/23/17 04:44 Troponin T < 0.010 ng/mL (0.00-0.029) 06/18/17 21:28
--- NOTE | 2017-06-23 08:54 | Progress Note ---
Assessment and Plan Acute diastolic heart failure secondary to noncompliance with medications and dietary restrictions. right and left heart catheterization 05/2017 Findings: 1. Elevated right and left heart filling pressures. Moderate pulmonary hypertension (PAWP 30). 2. No significant mitral valve gradient, no significant mitral stenosis. 3. No significant coronary disease, essentially angiographically normal coronary arteries. 4. Mild left ventricle systolic dysfunction, ejection fraction 40-45%. Hypertension Morbid obesity Likely FRANCES/Obesity hypoventilation syndrome Noncompliance Continue medical management for her heart failure with a preserved ejection fraction. Subjective Date of service: 06/23/17 Interval history: Patient has no complaints. Objective Vital Signs Temp Pulse Pulse Resp Resp BP BP 06/23/17 08:48 20 06/23/17 04:10 97.7 F 72 18 124/72 06/23/17 01:21 18 06/23/17 00:21 18 06/23/17 00:15 98.2 F 78 20 154/77 06/22/17 23:35 06/22/17 23:26 26 H 06/22/17 22:42 70 126/69 06/22/17 22:38 70 126/69 06/22/17 22:00 70 18 18 06/22/17 21:07 74 06/22/17 20:11 99.9 F H 78 20 146/78 06/22/17 10:47 06/22/17 10:15 Pulse Ox 06/23/17 08:48 06/23/17 04:10 95 06/23/17 01:21 06/23/17 00:21 06/23/17 00:15 97 06/22/17 23:35 98 06/22/17 23:26 98 06/22/17 22:42 06/22/17 22:38 06/22/17 22:00 06/22/17 21:07 06/22/17 20:11 95 06/22/17 10:47 86 06/22/17 10:15 95 - Physical Examination General: No Apparent Distress Cardiac: Positive: Reg Rate and Rhythm Neuro: Positive: Grossly Intact Extremities: Absent: edema - Labs and Meds Comprehensive Metabolic Panel 06/23/17 Range/Units 04:44 Carbon Dioxide 47 H* (22-30) mmol/L BUN 11 (7-17) mg/dL Creatinine 0.4 L (0.7-1.2) mg/dL Glucose 85 (65-100) mg/dL Calcium 9.4 (8.4-10.2) mg/dL - Imaging and Cardiology EKG: image reviewed
[2017-06-23] MEDS: PROCARDIA XL PO SCH ×2 (09:00→23:16)
[2017-06-23] MEDS: COREG PO SCH ×2 (09:00→23:16)
[2017-06-23] MEDS: BABY ASPIRIN PO SCH (09:00)
[2017-06-23] MEDS: LOVENOX SUB-Q SCH (09:00)
[2017-06-23] MEDS: DIOVAN PO SCH ×2 (09:00→23:16)
[2017-06-23] MEDS: K-DUR PO SCH ×2 (11:16→23:15)
--- NOTE | 2017-06-23 11:37 | Progress Note ---
Assessment and Plan Hypoxemia with hypercapnia, with normal A-a gradient. Suggestive of with obesity hypoventilation syndrome. Another consideration is hypoventilation in the setting of respiratory suppressant drug Metabolic alkalosis and respiratory acidosis Congestive heart failure with exacerbation Pulmonary hypertension. Possibly group 2/3 Severe morbid obesity History of asthma. Recommendations Continue CHF management per cardiology recommendations Home,portable oxygen for home use OPD PFT evaluation OPD sleep study for FRANCES Avoid narcotics in the setting of chronic hypercapnia. DC and update ABG if possible prior to DH- see prior recommendations DVT prophylaxis Diet/weight reduction program Recommendation discussed with patient in detail. All questions answered. She can be seen as an outpatient at the pulmonary clinic for evaluation of this more extended workup. Subjective Date of service: 06/23/17 Interval history: Sleepy no other chest complains. she did not tolerated the BiPAP set for her last night. Objective Vital Signs - 12hr 06/22/17 06/23/17 06/23/17 23:35 00:15 00:21 Temperature 98.2 F Pulse Rate 78 Respiratory 20 18 Rate Blood Pressure Blood Pressure 154/77 [Right] O2 Sat by Pulse 98 97 Oximetry 06/23/17 06/23/17 06/23/17 01:21 04:10 07:00 Temperature 97.7 F Pulse Rate 72 63 Respiratory 18 18 Rate Blood Pressure Blood Pressure 124/72 [Right] O2 Sat by Pulse 95 Oximetry 06/23/17 06/23/17 06/23/17 07:47 08:48 09:00 Temperature 98.8 F Pulse Rate 64 64 Respiratory 22 20 Rate Blood Pressure 149/76 149/76 Blood Pressure [Right] O2 Sat by Pulse 97 Oximetry 06/23/17 10:06 Temperature Pulse Rate Respiratory Rate Blood Pressure Blood Pressure [Right] O2 Sat by Pulse 96 Oximetry Constitutional: no acute distress, alert, other (severely morbidly obese) Eyes: non-icteric ENT: oropharynx moist, other (Mallampati 3) Neck: supple, no lymphadenopathy, no JVD Ascultation: Bilateral: clear, diminished breath sounds Cardiovascular: regular rate and rhythm Gastrointestinal: normoactive bowel sounds, non-distended Extremities: no cyanosis, no edema, no ischemia or petechiae Neurologic: normal mental status, non-focal exam, pupils equal and round, CN II- XII normal, motor strength normal and Psychiatric: anxious CBC and BMP: 06/19/17 04:42 06/23/17 04:44 ABG, PT/INR, D-dimer: ABG POC ABG pH 7.510 (7.35-7.45) H 06/22/17 10:47 POC ABG pCO2 68.9 (35-45) H 06/22/17 10:47 POC ABG pO2 50 (80-105) L 06/22/17 10:47 POC ABG HCO3 54.9 06/22/17 10:47 POC ABG Total CO2 > 50 06/22/17 10:47 POC ABG O2 Sat 86 06/22/17 10:47 Abnormal lab findings: Abnormal Labs 06/19/17 06/19/17 06/22/17 04:42 04:42 04:39 [place] % (Auto) 9.2 H Seg Neutrophils % 72.6 H POC ABG pH POC ABG pCO2 POC ABG pO2 Potassium 3.1 L D Chloride 95.7 L 88.4 L Carbon Dioxide 47 H* D Creatinine 0.5 L 0.4 L 06/22/17 06/23/17 10:47 04:44 [place] % (Auto) Seg Neutrophils % POC ABG pH 7.510 H POC ABG pCO2 68.9 H POC ABG pO2 50 L Potassium Chloride Carbon Dioxide 47 H* Creatinine 0.4 L
[2017-06-24] MEDS: LASIX IV SCH (06:04)
[2017-06-24 06:06] LABS: Blood Urea Nitrogen 13 mg/dL (7-17); Calcium 9.4 mg/dL (8.4-10.2); Chloride 92.2 mmol/L (98-107); Glucose 84 mg/dL (65-100); Potassium 3.8 mmol/L (3.6-5.0); Sodium 143 mmol/L (137-145)
[2017-06-24 06:09] LABS: Anion Gap 11 mmol/L; Carbon Dioxide 44 mmol/L (22-30)
[2017-06-24 06:48] LABS: ISTAT Base Excess 27; ISTAT DEVICE 0; ISTAT HCO3 49.9; ISTAT PCO2 65.1 (35-45); ISTAT PH 7.492 (7.35-7.45); ISTAT PO2 108 (80-105); ISTAT SO2 98; ISTAT TCO2 > 50
[2017-06-24 06:56] VITALS: BP 114/71
--- NOTE | 2017-06-24 08:58 | Discharge Summary ---
Providers - Providers Date of Admission: 06/18/17 22:21 Attending physician: DEN CARABALLO MD 06/18/17 23:33 Consult to Physician [CONS] Routine Consulting Provider: MARKELL CHRISTOPHER Reason For Exam: chf Place consult to:: Dr. Christopher Notified:: Grazyna RN Phone number called:: Was contact made?: Yes If yes, spoke with:: Argelia diop Time called:: 08:31 06/22/17 08:19 Consult to Physician [CONS] Routine Consulting Provider: JOHNNIE CORRALES Reason For Exam: suspect hypoventilation, obesity and FRANCES Place consult to:: Office Notified:: yes Phone number called:: [phone] Was contact made?: Yes If yes, spoke with:: Binta Time called:: 09:16 Primary care physician: CARD PUNCHER Hospitalization Condition: Fair Hospital course: 62-year-old woman with a past medical history of hypertension, CHF, asthma, anxiety disorder, who presents with dyspnea on exertion, orthopnea and lower extremity edema. Patient was recently admitted to hospital and admits to being noncompliant with her medications stating that she is unable to obtain them, due to not having transportation. For treatment of CHF, she received IV diuresis, and her medications optimized. She'll also noted to have acute hypoxic respiratory failure, she received supplemental oxygen by nasal cannula and noninvasive ventilator. She clinically improved, her blood pressure medications were optimized. Her electrolytes were repleted. She was found to have chronic CO2 retention, and her presentation was consistent with obesity hypoventilation. Therefore she received a pulmonary consultation. Arrangements were made for home oxygen and home NIV for her prior to discharge. She was counseled on improved compliance with low salt diets, and improved adherence to her medications, lifestyle changes which include weight loss. She' ll also advised to fill her prescriptions on her way out of the hospital so she does not miss any doses this time. Discharge diagnosis CHF acute on chronic diastolic Acute hypoxic and hypercapnic respiratory failure Hypokalemia Noncompliance with medications Hypertensive urgency Asthma Anxiety disorder Disposition: TO HOME OR SELFCARE Time spent for discharge: 33 minutes Core Measure Documentation - Palliative Care Palliative Care/ Comfort Measures: Not Applicable - Core Measures Any of the following diagnoses?: heart failure - Heart Failure Discharge Requirements STEPHANIE/ARB for LVSD if EF <40%: Not Applicable Beta lacey at discharge: Yes Exam - Constitutional Vitals: Temp Pulse Resp BP Pulse Ox 99.0 F 78 20 114/71 97 06/24/17 06:55 06/24/17 06:55 06/24/17 06:55 06/24/17 06:55 06/24/17 08:52 General appearance: Present: no acute distress, well-nourished - EENT Eyes: Present: PERRL ENT: hearing intact, clear oral mucosa - Neck Neck: Present: supple, normal ROM - Respiratory Respiratory effort: normal Respiratory: bilateral: CTA - Cardiovascular Heart Sounds: Present: S1 & S2. Absent: rub, click - Extremities Extremities: pulses symmetrical, No edema Peripheral Pulses: within normal limits - Abdominal General gastrointestinal: Present: soft, non-tender, non-distended, normal bowel sounds Female genitourinary: Present: normal - Integumentary Integumentary: Present: clear, warm, dry - Musculoskeletal Musculoskeletal: gait normal, strength equal bilaterally - Psychiatric Psychiatric: appropriate mood/affect, intact judgment & insight - Neurologic Neurologic: CNII-XII intact, moves all extremities Plan Additional Instructions: F/U with [facility] as scheduled Jul.06. Follow up with: PRIMARY CAREMD [Primary Care Provider] - 3-5 Days JOHNNIE CORRALES MD [Staff Physician] - 7 Days Prescriptions: Aspirin [Adult Low Dose Aspirin EC] 81 mg PO DAILY #30 tablet. Carvedilol [Coreg] 6.25 mg PO BID #60 tablet Furosemide [Lasix TAB] 40 mg PO QDAY #30 tablet NIFEdipine XL [Procardia Xl] 30 mg PO Q12HR #60 tablet Potassium Chloride [K-Dur] 20 meq PO DAILY #30 tablet Valsartan [Diovan] 160 mg PO BID #60 tablet
--- NOTE | 2017-06-24 09:04 | Progress Note ---
Assessment and Plan Acute diastolic heart failure secondary to noncompliance with medications and dietary restrictions. right and left heart catheterization 05/2017 Findings: 1. Elevated right and left heart filling pressures. Moderate pulmonary hypertension (PAWP 30). 2. No significant mitral valve gradient, no significant mitral stenosis. 3. No significant coronary disease, essentially angiographically normal coronary arteries. 4. Mild left ventricle systolic dysfunction, ejection fraction 40-45%. Hypertension Morbid obesity Likely FRANCES/Obesity hypoventilation syndrome Noncompliance Continue medical management for her heart failure with a preserved ejection fraction. Advised compliance with medications and dietary restrictions. Stable cardiac looney. F/U with [facility] as scheduled Jul.06. Subjective Date of service: 06/24/17 Interval history: Patient has no complaints. For planned discharge home today. Objective Vital Signs Temp Pulse Resp BP BP Pulse Ox 06/24/17 08:52 97 06/24/17 06:55 99.0 F 78 20 114/71 94 06/24/17 01:26 98.5 F 82 20 112/64 95 06/23/17 23:16 64 149/76 06/23/17 22:28 98 06/23/17 19:38 98.4 F 72 20 112/71 96 06/23/17 18:11 98.8 F 75 20 138/80 94 06/23/17 14:15 63 06/23/17 12:49 97.8 F 63 20 127/81 97 06/23/17 10:06 96 - Physical Examination General: No Apparent Distress Cardiac: Positive: Reg Rate and Rhythm Neuro: Positive: Grossly Intact Extremities: Absent: edema - Labs and Meds Comprehensive Metabolic Panel 06/24/17 Range/Units 04:33 Sodium 143 (137-145) mmol/L Potassium 3.8 (3.6-5.0) mmol/L Chloride 92.2 L (98-107) mmol/L Carbon Dioxide 44 H* (22-30) mmol/L BUN 13 (7-17) mg/dL Creatinine 0.5 L (0.7-1.2) mg/dL Glucose 84 (65-100) mg/dL Calcium 9.4 (8.4-10.2) mg/dL - Imaging and Cardiology EKG: image reviewed
[2017-06-24] MEDS: COREG PO SCH (10:10)
[2017-06-24] MEDS: PROCARDIA XL PO SCH (10:49)
[2017-06-24] MEDS: DIOVAN PO SCH (10:49)
[2017-06-24] MEDS: LOVENOX SUB-Q SCH (10:50)
[2017-06-24] MEDS: BABY ASPIRIN PO SCH (10:51)
[2017-06-24] MEDS: K-DUR PO SCH (12:51)
== END 2017-06-24 18:45 | disposition home or self-care (01) | DRG 291 ==
LOC: ED 15:24 → 4A 22:21
PROVIDERS: ADMIT Internal Medicine; ATTEND Internal Medicine
PROC: 4A033R1 Measurement of Arterial Saturation, Peripheral, Percutaneous Approach (ICD-10-PCS; principal; 2017-06-22)
PROC: 5A09357 Assistance with Respiratory Ventilation, Less than 24 Consecutive Hours, Continuous Positive Airway Pressure (ICD-10-PCS; 2017-06-22)
DX: I11.0 Hypertensive heart disease with heart failure (principal); J96.01 Acute respiratory failure with hypoxia; J96.02 Acute respiratory failure with hypercapnia; I50.33 Acute on chronic diastolic (congestive) heart failure; J45.909 Unspecified asthma, uncomplicated; F41.9 Anxiety disorder, unspecified; I16.0 Hypertensive urgency; I27.2 Other secondary pulmonary hypertension; E66.2 Morbid (severe) obesity with alveolar hypoventilation; Z90.49 Acquired absence of other specified parts of digestive tract; Z90.710 Acquired absence of both cervix and uterus; Z87.891 Personal history of nicotine dependence; Z82.49 Family history of ischemic heart disease and other diseases of the circulatory system; Z88.5 Allergy status to narcotic agent; Z91.14 Patient's other noncompliance with medication regimen; Z99.81 Dependence on supplemental oxygen; Z68.41 Body mass index [BMI] 40.0-44.9, adult; Z79.899 Other long term (current) drug therapy; Z59.0 Homelessness
CPT/HCPCS: 36415; 36600; 71010; 80048; 82803; 84484; 85025; 93005; 93010; 94660; 94760; 96374; 96375; J0360; J1650; J1940; J2405

== ENCOUNTER 2017-11-20 21:50 | Inpatient (IN) | payer MEDICAID ==
--- NOTE | 2017-11-20 22:13 | Emergency Department Report ---
HPI - General Time Seen by Provider: 11/20/17 22:02 - HPI HPI: 62-year-old Asya female presents to the emergency department by EMS from home with complaint of shortness of breath has been going on for the past week but worsened today. It is associated with some lower extremity swelling/ edema and some pain in the knees and the back. She denies any chest pain, fever , nausea, vomiting or diaphoresis. She has a history of CHF, FRANCES, hypertension. She denies any history of PA, CVA, PE/DVT but says that she thinks she has a IVC filter in place. The patient appears to have some noncompliance with medication and/or treatment as she says that she has supposed to be on Lasix but has not had any since she last was here in June. At that time she had a cardiac catheterization that showed an EF of 40-45%. She does not have a primary care physician. 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 She has not taken anything for her symptoms prior to presentation. No recent travel or sick contacts at home. ED Past Medical Hx - Past Medical History Hx Hypertension: Yes Hx Congestive Heart Failure: Yes Hx Diabetes: No Hx Asthma: Yes Hx COPD: No - Surgical History Hx Cholecystectomy: Yes Additional Surgical History: Hysterectomy - Social History Smoking Status: Never Smoker - Medications Home Medications: Home Medications Medication Instructions Recorded Confirmed Last Taken Type Aspirin [Adult Low Dose Aspirin EC] 81 mg PO DAILY #30 tablet. 06/24/1711/13/17 Rx Carvedilol [Coreg] 6.25 mg PO BID #60 tablet 06/24/17 11/21/17 11/13/17 Rx Furosemide [Lasix TAB] 40 mg PO QDAY #30 tablet 06/24/17 11/21/17 11/13/17 Rx NIFEdipine XL [Procardia Xl] 30 mg PO Q12HR #60 tablet 06/24/17 11/21/17 Rx Potassium Chloride [K-Dur] 20 meq PO DAILY #30 tablet 06/24/17 11/21/17 Rx Valsartan [Diovan] 160 mg PO BID #60 tablet 06/24/17 11/21/17 11/13/17 Rx ED Review of Systems ROS: Stated complaint: SUSSY Other details as noted in HPI Comment: All other systems reviewed and negative Constitutional: denies: chills, fever Eyes: denies: eye pain, eye discharge, vision change ENT: denies: ear pain, throat pain Respiratory: shortness of breath. denies: cough Cardiovascular: edema. denies: chest pain Gastrointestinal: denies: abdominal pain, nausea, diarrhea Genitourinary: denies: urgency, dysuria, discharge Musculoskeletal: back pain, arthralgia Skin: denies: rash, lesions Neurological: denies: headache, weakness, paresthesias Physical Exam - Physical Exam Physical Exam: GENERAL: The patient is well-developed well-nourished. HENT: Normocephalic. Atraumatic. Patient has moist mucous membranes. EYES: Extraocular motions are intact. Pupils equal reactive to light bilaterally. NECK: Supple. Trachea is midline. CHEST/LUNGS: Coarse breath sounds with the chest. No tachypnea or accessory muscle use. There is no respiratory distress noted. HEART/CARDIOVASCULAR: Regular. There is no tachycardia. There is no murmur. ABDOMEN: Abdomen is soft, nontender. Patient has normal bowel sounds. Morbidly obese habitus. SKIN: Skin is warm and dry. There is 2+ pitting edema of the bilateral lower extremities. NEURO: The patient is awake, alert, and oriented. The patient is cooperative. The patient has no focal neurologic deficits. The patient has normal speech. MUSCULOSKELETAL: There is no tenderness or deformity. There is no limitation range of motion. There is no evidence of acute injury. ED Medical Decision Making - Lab Data Result diagrams: 11/20/17 22:06 11/20/17 22:06 - EKG Data -: EKG Interpreted by Me EKG shows normal: sinus rhythm, axis, intervals, QRS complexes (LVH), ST-T waves Rate: normal - EKG Data When compared to previous EKG there are: no significant change Interpretation: unchanged when compared t (05/24/17) - Radiology Data Radiology results: image reviewed interpreted by me: Chest x-ray shows some cardiomegaly and pulmonary vascular congestion. No obvious pneumonia. - Medical Decision Making 62-year-old female presents with some shortness of breath and lower extremity edema. She has a history of CHF and I believe she has an exacerbation of this as she has a BNP of almost 1000 and significant lower extremity edema. She was given Lasix to start diuresis. Patient had a slightly elevated d-dimer so a CT angiography has been done but the results have not yet been read. However the patient has a history of an IVC filter and therefore there is a low suspicion that she will have a pulmonary embolism but the results will be followed by the hospitalist service and can start anticoagulation if necessary. Patient was accepted for admission by the hospitalist, Dr. Newman. - Differential Diagnosis CHF, PA, PE, dysrhythmia, pneumonia Critical Care Time: No Critical care attestation.: If time is entered above; I have spent that time in minutes in the direct care of this critically ill patient, excluding procedure time. ED Disposition Clinical Impression: Hypertensive urgency CHF (congestive heart failure) Qualifiers: Congestive heart failure type: unspecified Congestive heart failure chronicity : acute on chronic Qualified Code(s): I50.9 - Heart failure, unspecified Disposition: OP ADMIT IP TO THIS HOSP Is pt being admited?: Yes Does the pt Need Aspirin: Yes Condition: Stable Referrals: BELÉN LYNN MD [Primary Care Provider] - 3-5 Days Time of Disposition: 07:11
[2017-11-20 22:27] LABS: Basophils # (Auto) 0.1 K/mm3 (0.0-0.1); Eosinophils # (Auto) 0.1 K/mm3 (0.0-0.4); Eosinophils % (Auto) 2.1 % (0.0-4.3); Hematocrit 39.4 % (30.3-42.9); Hemoglobin 12.6 gm/dl (10.1-14.3); Lymphocytes # (Auto) 1.9 K/mm3 (1.2-5.4); Mean Corpuscular HGB Conc 32 % (30-34); Mean Corpuscular Hemoglobin 28 pg (28-32); Mean Corpuscular Volume 87 fl (79-97); Monocytes # (Auto) 0.5 K/mm3 (0.0-0.8); Monocytes % (Auto) 8.4 % (0.0-7.3); Platelet Count 271 K/mm3 (140-440); Red Blood Count 4.52 M/mm3 (3.65-5.03); Red Cell Distribution Width 14.9 % (13.2-15.2)
[2017-11-20 22:53] LABS: Alanine Aminotransferase 19 units/L (7-56); Albumin 3.4 g/dL (3.9-5); BUN/Creatinine Ratio 17; Blood Urea Nitrogen 10 mg/dL (7-17); Calcium 8.7 mg/dL (8.4-10.2); Hemolysis Index 17
[2017-11-20] MEDS ORDERED: LASIX IV ONE (22:56)
--- NOTE | 2017-11-20 23:24 | XRay Report ---
FINAL REPORT PROCEDURE: XR CHEST 1V AP TECHNIQUE: Chest radiograph anteroposterior view. CPT 58958 HISTORY: Dyspnea COMPARISON: 05/22/2017 FINDINGS: Heart: Normal. Mediastinum/Vessels: Normal. Lungs/Pleural space: Very slight atelectasis bilateral lower lungs. No effusion or pneumothorax.. Bony thorax: No acute osseous abnormality. Life support devices: None. IMPRESSION: Mild atelectasis bilateral lower lungs..
[2017-11-21] MEDS ORDERED: APRESOLINE IV ONE ×2 (00:03→07:12)
[2017-11-21 00:18] LABS: Bilirubin,Urine NEG (Negative); Blood,Urine NEG (Negative); Color,Urine Red (Yellow); Nitrite,Urine NEG (Negative); Urobilinogen,Urine < 2.0 mg/dL (<2.0)
[2017-11-21] MEDS ORDERED: TORADOL IV ONE (01:51)
[2017-11-21] MEDS ORDERED: BABY ASPIRIN PO ONE (07:11)
--- NOTE | 2017-11-21 07:48 | History and Physical Report ---
History of Present Illness Date of examination: 11/21/17 Date of admission: 11/21/17 Chief complaint: worsening Shortness of breath for the last 1 week worse since 1 day History of present illness: Very pleasant 62-year-old morbidly obese female patient with significant past medical history of congestive heart failure hypertension morbid obesity obstructive sleep apnea and obesity hypoventilation syndrome is in today to the emergency room with worsening shortness of breath of 1 week gestation Worse since yesterday. She denies history of hypertension and congestive heart failure, however noncompliant with medications for more than few months Secondary to social issues Today complaints of worsening shortness of breath and vague chest pain intermittent Denies nausea vomiting or abdominal pain Denies headache dizziness weakness or numbness. Initial workup is negative Past History Past Medical History: heart failure, hypertension, other (anxiety, asthma) Past Surgical History: cholecystectomy, hysterectomy Social history: lives with family, full code. denies: smoking, alcohol abuse, IV drug use Family history: hypertension Medications and Allergies Allergies Allergy/AdvReac Type Severity Reaction Status Date / Time codeine Allergy Itching Verified 05/22/17 19:46 morphine Allergy Unknown Verified 05/22/17 19:46 Home Medications Medication Instructions Recorded Confirmed Last Taken Type Furosemide [Lasix TAB] 40 mg PO QDAY #30 tablet 06/24/17 11/21/17 11/13/17 Rx RX: Aspirin [Adult Low Dose 81 mg PO DAILY #30 tablet. 06/24/17 11/21/1711/13 Rx Aspirin EC] RX: Carvedilol [Coreg] 6.25 mg PO BID #60 tablet 06/24/17 11/21/17 11/13/17 Rx RX: NIFEdipine XL [Procardia Xl] 30 mg PO Q12HR #60 tablet 06/24/17 11/21/1706/22 Rx RX: Potassium Chloride [K-Dur] 20 meq PO DAILY #30 tablet 06/24/17 11/21/1706/22 Rx RX: Valsartan [Diovan] 160 mg PO BID #60 tablet 06/24/17 11/21/17 11/13/17 Rx Active Meds: Active Medications Heparin Sodium (Porcine) (Heparin) 5,000 unit SUB-Q Q8HR JEREMY Review of Systems Constitutional: fatigue, weakness, no weight loss, no weight gain Ears, nose, mouth and throat: no nasal congestion, no nasal discharge Cardiovascular: chest pain, orthopnea, shortness of breath, dyspnea on exertion Respiratory: shortness of breath, dyspnea on exertion, no cough with sputum Gastrointestinal: no abdominal pain, no nausea, no vomiting Genitourinary Female: no flank pain, no dysuria Musculoskeletal: no myalgias, no arthritis Integumentary: no rash, no lesions Neurological: no weakness, no seizures Psychiatric: anxiety, no depression Endocrine: no cold intolerance, no heat intolerance Hematologic/Lymphatic: no easy bruising, no easy bleeding Allergic/Immunologic: no urticaria, no allergic rhinitis Exam - Constitutional Vitals: Temp Pulse Resp BP Pulse Ox 98.9 F 81 21 183/96 98 11/20/17 22:39 11/21/17 03:45 11/21/17 03:45 11/21/17 06:31 11/21/17 06:31 General appearance: Present: no acute distress, well-nourished, obese - EENT Eyes: Present: PERRL, EOM intact - Neck Neck: Present: supple, normal ROM - Respiratory Respiratory effort: normal Respiratory: bilateral: diminished, rales, negative: rhonchi, wheezing - Cardiovascular Rhythm: regular Heart Sounds: Present: S1 & S2 - Extremities Extremities: no ischemia Extremity abnormal: edema - Abdominal General gastrointestinal: Present: soft, non-tender, non-distended, normal bowel sounds, other (obese) - Integumentary Integumentary: Present: clear, warm - Musculoskeletal Musculoskeletal: strength equal bilaterally, generalized weakness - Psychiatric Psychiatric: appropriate mood/affect, cooperative - Neurologic Neurologic: CNII-XII intact, moves all extremities Results - Labs CBC & Chem 7: 11/20/17 22:06 11/20/17 22:06 Labs: Abnormal lab results 11/20/17 11/20/17 11/20/17 Range/Units 22:06 22:06 22:06 [place] % (Auto) 8.4 H (0.0-7.3) % D-Dimer 339.54 H (0-234) ng/mlDDU Creatinine 0.6 L (0.7-1.2) mg/dL Glucose 110 H (65-100) mg/dL NT-Pro-B Natriuret Pep 934.4 H (0-900) pg/mL Albumin 3.4 L (3.9-5) g/dL Assessment and Plan --Acute respiratory failure secondary to acute on chronic congestive heart failure, oxygen titrated to O2 sats more than 90%, anti-failure medications, supportive care --Acute on chronic systolic congestive heart failure; ejection fraction 40-45% Continue anti-failure medications, low sodium diet, fluid restriction, cardiology evaluation --Elevated D dimers ; rule out PE, follow CT angiogram of the chest --Hypertension; moderate control, continue current antihypertensives and when necessary medications --Possible obstructive sleep apnea/obesity hypoventilation syndrome/patient need , outpatient sleep study and CPAP as needed --Morbid obesity; counseling and patient strongly advised dietary modification and exercise as tolerated and weight reduction Patient may benefit by bariatric surgical evaluation for weight reduction program when medically stable --Medical noncompliance; patient counseled the importance of adhering to the treatment plan, verbalized understanding --DVT prophylaxis is Lovenox --Physical therapy occupational therapy Low-sodium diet water restriction, input output monitoring, daily weights --Disposition; admit to telemetry, closely monitored just the management Possible discharge in 1-2 days if stable
[2017-11-21] MEDS: HALFPRIN EC PO SCH (09:59)
[2017-11-21] MEDS ORDERED: PROCARDIA XL PO SCH (10:00)
[2017-11-21] MEDS: DIOVAN PO SCH ×2 (10:14→22:41)
[2017-11-21] MEDS: COREG PO SCH ×2 (10:15→22:40)
[2017-11-21] MEDS: K-DUR PO SCH (10:16)
[2017-11-21] MEDS: TYLENOL PO PRN ×2 (12:27→17:34)
--- NOTE | 2017-11-21 13:03 | Consultation ---
History of Present Illness Consult date: 11/21/17 Consult reason: shortness of breath History of present illness: The patient is a 62-year-old woman admitted with shortness of breath and cough. There is a concern for fluid overload on presentation, and cardiac consultation was requested for evaluation of congestive heart failure. There was no chest pain. The EKG shows sinus rhythm, left ventricular hypertrophy, but no acute ST or T-wave abnormalities. The chest x-ray by my review may indicate very mild interstitial edema, a report of the chest CTA is pending. She had extensive cardiac invasive workup in the past 6 months. May 2017 she underwent a right and left heart catheterization, indication was chest pain , abnormal thallium stress test and an echocardiographic finding of possible mild mitral stenosis. The right and left heart catheterization demonstrated no significant transmitral gradient, no significant coronary artery disease, but evidence of moderately severe pulmonary hypertension with pulmonary artery systolic pressure of 60. Left ventricular ejection fraction by left ventricular angiography was 35-40%, and by echocardiogram was 45-50%. Past History Past Medical History: heart failure, hypertension Medications and Allergies Allergies Allergy/AdvReac Type Severity Reaction Status Date / Time codeine Allergy Itching Verified 05/22/17 19:46 morphine Allergy Unknown Verified 05/22/17 19:46 Home Medications Medication Instructions Recorded Confirmed Last Taken Type Aspirin [Adult Low Dose Aspirin EC] 81 mg PO DAILY #30 tablet. 06/24/1711/13/17 Rx Carvedilol [Coreg] 6.25 mg PO BID #60 tablet 06/24/17 11/21/17 11/13/17 Rx Furosemide [Lasix TAB] 40 mg PO QDAY #30 tablet 06/24/17 11/21/17 11/13/17 Rx NIFEdipine XL [Procardia Xl] 30 mg PO Q12HR #60 tablet 06/24/17 11/21/17 Rx Potassium Chloride [K-Dur] 20 meq PO DAILY #30 tablet 06/24/17 11/21/17 Rx Valsartan [Diovan] 160 mg PO BID #60 tablet 06/24/17 11/21/17 11/13/17 Rx Active Meds: Active Medications Acetaminophen (Tylenol) 650 mg PO Q6H PRN PRN Reason: Pain, Mild (1-3) Last Admin: 11/21/17 12:27 Dose: 650 mg Aspirin (Halfprin Ec) 81 mg PO DAILY [facility] Last Admin: 11/21/17 09:59 Dose: Not Given Carvedilol (Coreg) 6.25 mg PO BID [facility] Last Admin: 11/21/17 10:15 Dose: 6.25 mg Furosemide (Lasix) 40 mg IV 0600,1800 [facility] Heparin Sodium (Porcine) (Heparin) 5,000 unit SUB-Q Q8HR [facility] Hydralazine HCl (Apresoline) 10 mg IV Q4HR PRN PRN Reason: Hypertension Potassium Chloride (K-Dur) 20 meq PO DAILY [facility] Last Admin: 11/21/17 10:16 Dose: 20 meq Valsartan (Diovan) 160 mg PO BID [facility] Last Admin: 11/21/17 10:14 Dose: 160 mg Review of Systems Cardiovascular: orthopnea, edema, shortness of breath, no chest pain, no palpitations, no rapid/irregular heart beat, no syncope, no lightheadedness Physical Examination Vital Signs Pulse Resp 96 H 18 11/20/17 22:03 11/20/17 22:03 General appearance: no acute distress HEENT: Positive: PERRL Neck: Positive: neck supple Cardiac: Positive: Reg Rate and Rhythm Lungs: Positive: Decreased Breath Sounds Neuro: Positive: Grossly Intact Abdomen: Positive: Soft Female genitourinary: deferred Skin: Positive: Clear Extremities: Present: +1 Edema Results 11/22/17 05:42 11/22/17 05:42 Cardiac Enzymes 11/20/17 Range/Units 22:06 AST 24 (5-40) units/L CBC 11/20/17 Range/Units 22:06 WBC 6.1 (4.5-11.0) K/mm3 RBC 4.52 (3.65-5.03) M/mm3 Hgb 12.6 (10.1-14.3) gm/dl Hct 39.4 (30.3-42.9) % Plt Count 271 (140-440) K/mm3 Lymph # 1.9 (1.2-5.4) K/mm3 [place] # 0.5 (0.0-0.8) K/mm3 Eos # 0.1 (0.0-0.4) K/mm3 Baso # 0.1 (0.0-0.1) K/mm3 Comprehensive Metabolic Panel 11/20/17 Range/Units 22:06 Sodium 145 (137-145) mmol/L Potassium 4.1 (3.6-5.0) mmol/L Chloride 104.6 (98-107) mmol/L Carbon Dioxide 28 (22-30) mmol/L BUN 10 (7-17) mg/dL Creatinine 0.6 L (0.7-1.2) mg/dL Glucose 110 H (65-100) mg/dL Calcium 8.7 (8.4-10.2) mg/dL AST 24 (5-40) units/L ALT 19 (7-56) units/L Alkaline Phosphatase 72 (35-129) units/L Total Protein 6.8 (6.3-8.2) g/dL Albumin 3.4 L (3.9-5) g/dL EKG interpretations - Telemetry EKG Rhythm: Sinus Rhythm Assessment and Plan - Patient Problems (1) CHF (congestive heart failure) Current Visit: Yes Status: Acute Qualifiers: Congestive heart failure type: unspecified Congestive heart failure chronicity: acute on chronic Qualified Code(s): I50.9 - Heart failure, unspecified Plan to address problem: Patient presented with fluid overload, will continue medical therapy with diuretics, get follow-up echocardiogram for left ventricular function reassessment. Otherwise, conservative cardiac management. It would prudent to obtain pulmonary consultation and evaluation of pulmonary hypertension, and to determine any pulmonary pathology contribution to the current symptoms.
[2017-11-21] MEDS: HEPARIN SUB-Q SCH ×2 (14:25→22:42)
[2017-11-21] MEDS: LASIX IV SCH (17:33)
[2017-11-22] MEDS: TYLENOL PO PRN ×3 (05:01→17:07)
[2017-11-22] MEDS: LASIX IV SCH ×2 (05:02→17:08)
[2017-11-22] MEDS: HEPARIN SUB-Q SCH ×3 (05:02→23:50)
[2017-11-22 06:32] LABS: Basophils % (Auto) 0.7 % (0.0-1.8); Eosinophils # (Auto) 0.1 K/mm3 (0.0-0.4); Eosinophils % (Auto) 2.7 % (0.0-4.3); Hematocrit 38.7 % (30.3-42.9); Hemoglobin 12.3 gm/dl (10.1-14.3); Lymphocytes # (Auto) 1.5 K/mm3 (1.2-5.4); Lymphocytes % (Auto) 31.8 % (13.4-35.0); Mean Corpuscular HGB Conc 32 % (30-34); Mean Corpuscular Hemoglobin 28 pg (28-32); Mean Corpuscular Volume 87 fl (79-97); Monocytes # (Auto) 0.4 K/mm3 (0.0-0.8); Monocytes % (Auto) 7.7 % (0.0-7.3); Platelet Count 272 K/mm3 (140-440); Red Blood Count 4.45 M/mm3 (3.65-5.03); Red Cell Distribution Width 15.1 % (13.2-15.2)
[2017-11-22 06:59] LABS: BUN/Creatinine Ratio 26; Blood Urea Nitrogen 13 mg/dL (7-17); Calcium 9.1 mg/dL (8.4-10.2); Hemolysis Index 54
[2017-11-22] MEDS: DIOVAN PO SCH ×2 (10:38→23:49)
[2017-11-22] MEDS: HALFPRIN EC PO SCH (10:38)
[2017-11-22] MEDS: COREG PO SCH ×2 (10:38→23:50)
[2017-11-22] MEDS: K-DUR PO SCH (10:40)
--- NOTE | 2017-11-22 12:39 | Progress Note ---
Assessment and Plan - Patient Problems (1) CHF (congestive heart failure) Current Visit: Yes Status: Acute Qualifiers: Congestive heart failure type: unspecified Congestive heart failure chronicity: acute on chronic Qualified Code(s): I50.9 - Heart failure, unspecified Plan to address problem: Patient presented with fluid overload, will continue medical therapy with diuretics, get follow-up echocardiogram for left ventricular function reassessment. Otherwise, conservative cardiac management. It would prudent to obtain pulmonary consultation and evaluation of pulmonary hypertension, and to determine any pulmonary pathology contribution to the current symptoms. Subjective Date of service: 11/22/17 Interval history: Patient looks and feels well, shortness of breath is improved, no chest pain and no new cardiac complaints. Objective Vital Signs Temp Pulse Resp Resp BP Pulse Ox 11/22/17 10:39 22 11/22/17 10:38 111 H 161/96 11/22/17 08:02 98.4 F 67 22 161/96 95 11/22/17 05:01 20 11/22/17 04:21 97.4 F L 64 20 161/91 97 11/21/17 23:00 97.9 F 68 24 159/89 94 11/21/17 22:40 67 11/21/17 22:00 20 11/21/17 19:12 98.7 F 16 144/72 11/21/17 17:34 16 11/21/17 16:24 97.8 F 69 22 150/89 94 11/21/17 15:01 68 14 130/64 11/21/17 14:31 74 20 130/64 94 11/21/17 14:01 70 18 130/64 96 11/21/17 13:31 64 19 130/64 96 11/21/17 13:01 78 11 L 130/64 96 - Physical Examination General: No Apparent Distress HEENT: Positive: PERRL Neck: Positive: neck supple Cardiac: Positive: Reg Rate and Rhythm Lungs: Positive: Decreased Breath Sounds Neuro: Positive: Grossly Intact Abdomen: Positive: Soft Skin: Positive: Clear Extremities: Present: +1 Edema - Labs and Meds CBC 11/22/17 Range/Units 05:42 WBC 4.7 (4.5-11.0) K/mm3 RBC 4.45 (3.65-5.03) M/mm3 Hgb 12.3 (10.1-14.3) gm/dl Hct 38.7 (30.3-42.9) % Plt Count 272 (140-440) K/mm3 Lymph # 1.5 (1.2-5.4) K/mm3 [place] # 0.4 (0.0-0.8) K/mm3 Eos # 0.1 (0.0-0.4) K/mm3 Baso # 0.0 (0.0-0.1) K/mm3 Comprehensive Metabolic Panel 11/22/17 Range/Units 05:42 Sodium 142 (137-145) mmol/L Potassium 4.2 (3.6-5.0) mmol/L Chloride 95.5 L (98-107) mmol/L Carbon Dioxide 34 H (22-30) mmol/L BUN 13 (7-17) mg/dL Creatinine 0.5 L (0.7-1.2) mg/dL Glucose 97 (65-100) mg/dL Calcium 9.1 (8.4-10.2) mg/dL
[2017-11-22] MEDS: APRESOLINE IV PRN (18:39)
--- NOTE | 2017-11-22 21:37 | Progress Note ---
Assessment and Plan Assessment and plan: --Acute respiratory failure secondary to acute on chronic congestive heart failure, oxygen titrated to O2 sats more than 90%, anti-failure medications, supportive care --Acute on chronic systolic congestive heart failure; ejection fraction 40-45% Continue anti-failure medications, low sodium diet, fluid restriction, cardiology evaluation --Elevated D dimers ; rule out PE, follow CT angiogram of the chest --Hypertension; moderate control, continue current antihypertensives and when necessary medications --Possible obstructive sleep apnea/obesity hypoventilation syndrome/patient need , outpatient sleep study and CPAP as needed --Morbid obesity; counseling and patient strongly advised dietary modification and exercise as tolerated and weight reduction Patient may benefit by bariatric surgical evaluation for weight reduction program when medically stable --Medical noncompliance; patient counseled the importance of adhering to the treatment plan, verbalized understanding --DVT prophylaxis is Lovenox --Physical therapy occupational therapy Low-sodium diet water restriction, input output monitoring, daily weights --Disposition; admit to telemetry, closely monitored just the management Possible discharge in 1-2 days if stable History Interval history: Patient seen and evaluated medical records reviewed Slightly better no new complaints Hospitalist Physical - Constitutional Vitals: Temp Pulse Resp BP Pulse Ox 98.3 F 67 18 182/93 96 11/22/17 18:35 11/22/17 18:35 11/22/17 18:35 11/22/17 18:35 11/22/17 15:44 General appearance: Present: no acute distress Results - Labs CBC & Chem 7: 11/22/17 05:42 11/22/17 05:42 Labs: Laboratory Last Values WBC 4.7 K/mm3 (4.5-11.0) 11/22/17 05:42 RBC 4.45 M/mm3 (3.65-5.03) 11/22/17 05:42 Hgb 12.3 gm/dl (10.1-14.3) 11/22/17 05:42 Hct 38.7 % (30.3-42.9) 11/22/17 05:42 MCV 87 fl (79-97) 11/22/17 05:42 MCH 28 pg (28-32) 11/22/17 05:42 MCHC 32 % (30-34) 11/22/17 05:42 RDW 15.1 % (13.2-15.2) 11/22/17 05:42 Plt Count 272 K/mm3 (140-440) 11/22/17 05:42 Lymph % (Auto) 31.8 % (13.4-35.0) 11/22/17 05:42 [place] % (Auto) 7.7 % (0.0-7.3) H 11/22/17 05:42 Eos % (Auto) 2.7 % (0.0-4.3) 11/22/17 05:42 Baso % (Auto) 0.7 % (0.0-1.8) 11/22/17 05:42 Lymph # 1.5 K/mm3 (1.2-5.4) 11/22/17 05:42 [place] # 0.4 K/mm3 (0.0-0.8) 11/22/17 05:42 Eos # 0.1 K/mm3 (0.0-0.4) 11/22/17 05:42 Baso # 0.0 K/mm3 (0.0-0.1) 11/22/17 05:42 Seg Neutrophils % 57.1 % (40.0-70.0) 11/22/17 05:42 Seg Neutrophils # 2.7 K/mm3 (1.8-7.7) 11/22/17 05:42 D-Dimer 339.54 ng/mlDDU (0-234) H 11/20/17 22:06 Sodium 142 mmol/L (137-145) 11/22/17 05:42 Potassium 4.2 mmol/L (3.6-5.0) 11/22/17 05:42 Chloride 95.5 mmol/L (98-107) L 11/22/17 05:42 Carbon Dioxide 34 mmol/L (22-30) H 11/22/17 05:42 Anion Gap 17 mmol/L 11/22/17 05:42 BUN 13 mg/dL (7-17) 11/22/17 05:42 Creatinine 0.5 mg/dL (0.7-1.2) L 11/22/17 05:42 Estimated GFR > 60 ml/min 11/22/17 05:42 BUN/Creatinine Ratio 26 % 11/22/17 05:42 Glucose 97 mg/dL (65-100) 11/22/17 05:42 Calcium 9.1 mg/dL (8.4-10.2) 11/22/17 05:42 Magnesium 1.70 mg/dL (1.7-2.3) 11/22/17 05:42 Total Bilirubin 0.20 mg/dL (0.1-1.2) 11/20/17 22:06 AST 24 units/L (5-40) 11/20/17 22:06 ALT 19 units/L (7-56) 11/20/17 22:06 Alkaline Phosphatase 72 units/L (35-129) 11/20/17 22:06 Troponin T < 0.010 ng/mL (0.00-0.029) 11/20/17 22:06 NT-Pro-B Natriuret Pep 934.4 pg/mL (0-900) H 11/20/17 22:06 Total Protein 6.8 g/dL (6.3-8.2) 11/20/17 22:06 Albumin 3.4 g/dL (3.9-5) L 11/20/17 22:06 Albumin/Globulin Ratio 1.0 % 11/20/17 22:06 Urine Color Red (Yellow) 11/20/17 23:14 Urine Turbidity Clear (Clear) 11/20/17 23:14 Urine pH 6.0 (5.0-7.0) 11/20/17 23:14 Ur Specific [place] 1.005 (1.003-1.030) 11/20/17 23:14 Urine Protein 30 mg/dl mg/dL (Negative) 11/20/17 23:14 Urine Glucose (UA) Neg mg/dL (Negative) 11/20/17 23:14 Urine Ketones Neg mg/dL (Negative) 11/20/17 23:14 Urine Blood Neg (Negative) 11/20/17 23:14 Urine Nitrite Neg (Negative) 11/20/17 23:14 Urine Bilirubin Neg (Negative) 11/20/17 23:14 Urine Urobilinogen < 2.0 mg/dL (<2.0) 11/20/17 23:14 Ur Leukocyte Esterase Neg (Negative) 11/20/17 23:14 Urine WBC (Auto) 1.0 /HPF (0.0-6.0) 11/20/17 23:14 Urine RBC (Auto) 2.0 /HPF (0.0-6.0) 11/20/17 23:14 U Epithel Cells (Auto) 1.0 /HPF (0-13.0) 11/20/17 23:14
[2017-11-23] MEDS: TYLENOL PO PRN ×2 (04:25→23:09)
[2017-11-23] MEDS: APRESOLINE IV PRN (04:25)
[2017-11-23] MEDS: HEPARIN SUB-Q SCH ×3 (06:26→22:28)
[2017-11-23] MEDS: LASIX IV SCH ×2 (06:32→17:55)
--- NOTE | 2017-11-23 07:25 | Cat Scan Report ---
FINAL REPORT PROCEDURE: CT ANGIO CHEST TECHNIQUE: Computerized axial tomographic angiography of the chest and pulmonary arteries was performed after the IV injection of iodinated nonionic contrast. The image data was postprocessed using maximum intensity projection (MIP) and 2-dimensional multiplanar reformatted (MPR) techniques. The examination is specifically tailored to the evaluation of the pulmonary arteries per clinical request. HISTORY: Short of breath 786.09, chest pain 786.50, SOB, elevated dimer COMPARISON: No prior studies are available for comparison. FINDINGS: Heart and pericardium: The heart size is slightly pronounced. No pericardial effusion. Thoracic aorta: Normal. Pulmonary vasculature: Normal. No pulmonary emboli. Lymph nodes: No enlarged thoracic lymph nodes. Lungs: Mild atelectasis both lower lungs. Slight vascular congestion. No effusion or pneumothorax.. Pleural space: No effusion, thickening, or pneumothorax. Musculoskeletal structures: No significant abnormality. Upper abdominal structures: There is been previous cholecystectomy.. IMPRESSION: Mild atelectasis. Slight vascular congestion. The heart size is slightly pronounced. There is no evidence of pulmonary arterial emboli..
[2017-11-23] MEDS: K-DUR PO SCH (10:15)
[2017-11-23] MEDS: HALFPRIN EC PO SCH (10:16)
[2017-11-23] MEDS: DIOVAN PO SCH ×2 (10:16→22:28)
[2017-11-23] MEDS: COREG PO SCH ×2 (10:16→22:27)
--- NOTE | 2017-11-23 11:58 | Progress Note ---
Assessment and Plan Assessment and plan: --Acute respiratory failure secondary to acute on chronic congestive heart failure, oxygen titrated to O2 sats more than 90%, anti-failure medications, supportive care --Acute on chronic systolic congestive heart failure; ejection fraction 40-45% Continue anti-failure medications, low sodium diet, fluid restriction, cardiology evaluation --Elevated D dimers ; rule out PE, follow CT angiogram of the chest --Hypertension; moderate control, continue current antihypertensives and when necessary medications --obstructive sleep apnea/obesity hypoventilation syndrome/morbid obesity patient on complement with CPAP as needed --Morbid obesity; BMI 49.1, counseling and patient strongly advised dietary modification and exercise as tolerated and weight reduction Patient may benefit by bariatric surgical evaluation for weight reduction program when medically stable --Medical noncompliance; patient counseled the importance of adhering to the treatment plan, verbalized understanding --DVT prophylaxis is Lovenox --Physical therapy occupational therapy Low-sodium diet water restriction, input output monitoring, daily weights --Disposition; admit to telemetry, closely monitored just the management Possible discharge in 1-2 days if stable I History Interval history: Patient seen and evaluated medical records reviewed No new events reported by the nursing staff Patient continues to have pain asked for pain medication Denies chest pain or shortness of breath Vital signs reviewed Hospitalist Physical - Constitutional Vitals: Temp Pulse Resp BP Pulse Ox 98.4 F 66 20 140/74 92 11/23/17 08:21 11/23/17 08:21 11/23/17 08:21 11/23/17 08:21 11/23/17 08:21 General appearance: Present: no acute distress, well-nourished, obese (morbidly obese) - EENT Eyes: Present: PERRL, EOM intact - Neck Neck: Present: supple, normal ROM - Respiratory Respiratory effort: normal, labored Respiratory: bilateral: CTA, diminished, wheezing, negative: rales, rhonchi - Cardiovascular Rhythm: regular Heart Sounds: Present: S1 & S2 - Extremities Extremities: no ischemia, abnormal Extremity abnormal: edema - Abdominal General gastrointestinal: soft, non-tender, non-distended, normal bowel sounds - Integumentary Integumentary: Present: clear, warm - Psychiatric Psychiatric: appropriate mood/affect, cooperative - Neurologic Neurologic: CNII-XII intact, moves all extremities Results - Labs CBC & Chem 7: 11/22/17 05:42 11/22/17 05:42 Labs: Laboratory Last Values WBC 4.7 K/mm3 (4.5-11.0) 11/22/17 05:42 RBC 4.45 M/mm3 (3.65-5.03) 11/22/17 05:42 Hgb 12.3 gm/dl (10.1-14.3) 11/22/17 05:42 Hct 38.7 % (30.3-42.9) 11/22/17 05:42 MCV 87 fl (79-97) 11/22/17 05:42 MCH 28 pg (28-32) 11/22/17 05:42 MCHC 32 % (30-34) 11/22/17 05:42 RDW 15.1 % (13.2-15.2) 11/22/17 05:42 Plt Count 272 K/mm3 (140-440) 11/22/17 05:42 Lymph % (Auto) 31.8 % (13.4-35.0) 11/22/17 05:42 [place] % (Auto) 7.7 % (0.0-7.3) H 11/22/17 05:42 Eos % (Auto) 2.7 % (0.0-4.3) 11/22/17 05:42 Baso % (Auto) 0.7 % (0.0-1.8) 11/22/17 05:42 Lymph # 1.5 K/mm3 (1.2-5.4) 11/22/17 05:42 [place] # 0.4 K/mm3 (0.0-0.8) 11/22/17 05:42 Eos # 0.1 K/mm3 (0.0-0.4) 11/22/17 05:42 Baso # 0.0 K/mm3 (0.0-0.1) 11/22/17 05:42 Seg Neutrophils % 57.1 % (40.0-70.0) 11/22/17 05:42 Seg Neutrophils # 2.7 K/mm3 (1.8-7.7) 11/22/17 05:42 D-Dimer 339.54 ng/mlDDU (0-234) H 11/20/17 22:06 Sodium 142 mmol/L (137-145) 11/22/17 05:42 Potassium 4.2 mmol/L (3.6-5.0) 11/22/17 05:42 Chloride 95.5 mmol/L (98-107) L 11/22/17 05:42 Carbon Dioxide 34 mmol/L (22-30) H 11/22/17 05:42 Anion Gap 17 mmol/L 11/22/17 05:42 BUN 13 mg/dL (7-17) 11/22/17 05:42 Creatinine 0.5 mg/dL (0.7-1.2) L 11/22/17 05:42 Estimated GFR > 60 ml/min 11/22/17 05:42 BUN/Creatinine Ratio 26 % 11/22/17 05:42 Glucose 97 mg/dL (65-100) 11/22/17 05:42 Calcium 9.1 mg/dL (8.4-10.2) 11/22/17 05:42 Magnesium 1.70 mg/dL (1.7-2.3) 11/22/17 05:42 Total Bilirubin 0.20 mg/dL (0.1-1.2) 11/20/17 22:06 AST 24 units/L (5-40) 11/20/17 22:06 ALT 19 units/L (7-56) 11/20/17 22:06 Alkaline Phosphatase 72 units/L (35-129) 11/20/17 22:06 Troponin T < 0.010 ng/mL (0.00-0.029) 11/20/17 22:06 NT-Pro-B Natriuret Pep 934.4 pg/mL (0-900) H 11/20/17 22:06 Total Protein 6.8 g/dL (6.3-8.2) 11/20/17 22:06 Albumin 3.4 g/dL (3.9-5) L 11/20/17 22:06 Albumin/Globulin Ratio 1.0 % 11/20/17 22:06 Urine Color Red (Yellow) 11/20/17 23:14 Urine Turbidity Clear (Clear) 11/20/17 23:14 Urine pH 6.0 (5.0-7.0) 11/20/17 23:14 Ur Specific [place] 1.005 (1.003-1.030) 11/20/17 23:14 Urine Protein 30 mg/dl mg/dL (Negative) 11/20/17 23:14 Urine Glucose (UA) Neg mg/dL (Negative) 11/20/17 23:14 Urine Ketones Neg mg/dL (Negative) 11/20/17 23:14 Urine Blood Neg (Negative) 11/20/17 23:14 Urine Nitrite Neg (Negative) 11/20/17 23:14 Urine Bilirubin Neg (Negative) 11/20/17 23:14 Urine Urobilinogen < 2.0 mg/dL (<2.0) 11/20/17 23:14 Ur Leukocyte Esterase Neg (Negative) 11/20/17 23:14 Urine WBC (Auto) 1.0 /HPF (0.0-6.0) 11/20/17 23:14 Urine RBC (Auto) 2.0 /HPF (0.0-6.0) 11/20/17 23:14 U Epithel Cells (Auto) 1.0 /HPF (0-13.0) 11/20/17 23:14
--- NOTE | 2017-11-23 12:52 | Progress Note ---
Assessment and Plan Acute diastolic heart failure right and left heart catheterization 05/2017 1. Elevated right and left heart filling pressures. Moderately severe pulmonary hypertension 2. No significant mitral valve gradient, no significant mitral stenosis. 3. Essentially angiographically normal coronary arteries. 4. Ejection fraction 40-45%. Hypertension Morbid obesity FRANCES noncompliance with CPAP Recommendations: Pulmonary assessment for underlying pulmonary hypertension. Continue medical management for heart failure. Advised dietary restrictions. Subjective Date of service: 11/23/17 Interval history: Patient reports her breathing has somewhat improved. Objective Vital Signs Temp Pulse Resp BP BP Pulse Ox 11/23/17 08:21 98.4 F 66 20 140/74 92 11/23/17 04:25 63 186/87 11/22/17 23:50 63 186/87 11/22/17 23:49 63 186/87 11/22/17 23:19 98.2 F 63 18 186/87 93 11/22/17 22:00 20 11/22/17 18:35 98.3 F 67 18 182/93 11/22/17 17:07 20 11/22/17 15:44 97.5 F L 62 24 175/102 96 - Physical Examination General: No Apparent Distress HEENT: Positive: PERRL Cardiac: Positive: Reg Rate and Rhythm Lungs: Positive: Decreased Breath Sounds Neuro: Positive: Grossly Intact Extremities: Present: +1 Edema
--- NOTE | 2017-11-23 15:00 | Consultation ---
History of Present Illness Consult date: 11/23/17 Requesting physician: VILMA SCHAEFFER Reason for consult: dyspnea History of present illness: 62 yo with chronic systolic and diastolic CHF admitted with increased SOB and LE edema, with some reproducible and positional R lower back pain. No fevers, chills, cough, sputum, hemoptysis. Appears she was sent home with NIV last hospital stay 06/21, but admits she has not been using it and states her mask is broken, cannot get [facility] to give her a new one. Also admits to noncompliance with her CHF meds. Active Medications Acetaminophen (Tylenol) 650 mg PO Q6H PRN PRN Reason: Pain, Mild (1-3) Last Admin: 11/23/17 04:25 Dose: 650 mg Aspirin (Halfprin Ec) 81 mg PO DAILY [facility] Last Admin: 11/23/17 10:16 Dose: 81 mg Carvedilol (Coreg) 6.25 mg PO BID [facility] Last Admin: 11/23/17 10:16 Dose: 6.25 mg Furosemide (Lasix) 40 mg IV 0600,1800 [facility] Last Admin: 11/23/17 06:32 Dose: 40 mg Heparin Sodium (Porcine) (Heparin) 5,000 unit SUB-Q Q8HR [facility] Last Admin: 11/23/17 14:36 Dose: 5,000 unit Hydralazine HCl (Apresoline) 10 mg IV Q4HR PRN PRN Reason: Hypertension Last Admin: 11/23/17 04:25 Dose: 10 mg Potassium Chloride (K-Dur) 20 meq PO DAILY [facility] Last Admin: 11/23/17 10:15 Dose: 20 meq Valsartan (Diovan) 160 mg PO BID [facility] Last Admin: 11/23/17 10:16 Dose: 160 mg Past History Past Medical History: heart failure, hypertension Past Surgical History: cholecystectomy, hysterectomy Social history: lives with family, full code. denies: smoking, alcohol abuse, IV drug use Family history: hypertension Medications and Allergies Allergies Allergy/AdvReac Type Severity Reaction Status Date / Time codeine Allergy Itching Verified 05/22/17 19:46 morphine Allergy Unknown Verified 05/22/17 19:46 Home Medications Medication Instructions Recorded Confirmed Last Taken Type Aspirin [Adult Low Dose Aspirin EC] 81 mg PO DAILY #30 tablet. 06/24/1711/13/17 Rx Carvedilol [Coreg] 6.25 mg PO BID #60 tablet 06/24/17 11/21/17 11/13/17 Rx Furosemide [Lasix TAB] 40 mg PO QDAY #30 tablet 06/24/17 11/21/17 11/13/17 Rx NIFEdipine XL [Procardia Xl] 30 mg PO Q12HR #60 tablet 06/24/17 11/21/17 Rx Potassium Chloride [K-Dur] 20 meq PO DAILY #30 tablet 06/24/17 11/21/17 Rx Valsartan [Diovan] 160 mg PO BID #60 tablet 06/24/17 11/21/17 11/13/17 Rx Active Meds: Active Medications Acetaminophen (Tylenol) 650 mg PO Q6H PRN PRN Reason: Pain, Mild (1-3) Last Admin: 11/23/17 04:25 Dose: 650 mg Aspirin (Halfprin Ec) 81 mg PO DAILY [facility] Last Admin: 11/23/17 10:16 Dose: 81 mg Carvedilol (Coreg) 6.25 mg PO BID [facility] Last Admin: 11/23/17 10:16 Dose: 6.25 mg Furosemide (Lasix) 40 mg IV 0600,1800 [facility] Last Admin: 11/23/17 06:32 Dose: 40 mg Heparin Sodium (Porcine) (Heparin) 5,000 unit SUB-Q Q8HR [facility] Last Admin: 11/23/17 14:36 Dose: 5,000 unit Hydralazine HCl (Apresoline) 10 mg IV Q4HR PRN PRN Reason: Hypertension Last Admin: 11/23/17 04:25 Dose: 10 mg Potassium Chloride (K-Dur) 20 meq PO DAILY [facility] Last Admin: 11/23/17 10:15 Dose: 20 meq Valsartan (Diovan) 160 mg PO BID [facility] Last Admin: 11/23/17 10:16 Dose: 160 mg Review of Systems All systems: negative Physical Examination Vital signs: Vital Signs Pulse Resp 96 H 18 11/20/17 22:03 11/20/17 22:03 General appearance: no acute distress, alert Eyes: non-icteric ENT: oropharynx moist Neck: supple Effort: normal Ascultation: Bilateral: clear Cardiovascular: regular rate and rhythm (no mrg) Gastrointestinal: normoactive bowel sounds, soft, non-tender, non-distended Integumentary: normal Extremities: no cyanosis, pink and warm, edema (1+ bilateral LE edema) normal mental status, non-focal exam, pupils equal and round, CN II-XII normal mood appropriate, affect normal Results - Laboratory Findings CBC and BMP: 11/22/17 05:42 11/22/17 05:42 PT/INR, D-dimer D-Dimer 339.54 ng/mlDDU (0-234) H 11/20/17 22:06 Abnormal lab findings: Abnormal Labs 11/20/17 11/20/17 11/20/17 22:06 22:06 22:06 [place] % (Auto) 8.4 H D-Dimer 339.54 H Chloride Carbon Dioxide Creatinine 0.6 L Glucose 110 H NT-Pro-B Natriuret Pep 934.4 H Albumin 3.4 L 11/22/17 11/22/17 05:42 05:42 [place] % (Auto) 7.7 H D-Dimer Chloride 95.5 L Carbon Dioxide 34 H Creatinine 0.5 L Glucose NT-Pro-B Natriuret Pep Albumin - Diagnostic Findings Chest x-ray: report reviewed, image reviewed (no change from prior) CT scan - chest: report reviewed, image reviewed (unremarkable, no PE) Assessment and Plan Imp: 1. FRANCES/OHS/Morbid obesity 2. NICMP 3. Acute/chronic diastolic and systolic CHF due to suboptimal compliance 4. Pulmonary HTN -> primarily pulmonary venous HTN (per RHC elevated PCWP, LVEDP , normal PVR and trans-pulmonary gradient) 5. Chronic respiratory failure, hypoxia and hypercapnea Rec: 1. Diuresis 2. BP control 3. Weight loss 4. States she has home O2; keep sats 88-94% 5. Resume usage of NIV QHS and PRN; consult case management to help her get needed supplies from DME 6. Prognosis will be guarded with continued noncompliance 7. F/u with us in 1-2 weeks, sooner prn; minimal smoking history but can do a spirometry to exclude COPD Plan of care reviewed with patient, she understands/agrees Thanks for the consult. Will follow closely.
[2017-11-24] MEDS: HEPARIN SUB-Q SCH ×2 (06:35→13:20)
[2017-11-24] MEDS: LASIX IV SCH ×2 (06:35→17:07)
[2017-11-24] MEDS: TYLENOL PO PRN (06:47)
[2017-11-24] MEDS: APRESOLINE IV PRN (07:17)
--- NOTE | 2017-11-24 09:13 | Progress Note ---
Assessment and Plan Acute diastolic heart failure right and left heart catheterization 05/2017 1. Elevated right and left heart filling pressures. Moderately severe pulmonary hypertension 2. No significant mitral valve gradient, no significant mitral stenosis. 3. Essentially angiographically normal coronary arteries. 4. Ejection fraction 40-45%. Hypertension Morbid obesity FRANCES noncompliance with CPAP Recent echocardiogram shows a left ventricular ejection fraction of 40-45%, moderate mitral regurgitation, no evidence of mitral stenosis. The pulmonary artery systolic pressure could not be optimally assessed on echocardiogram. Conservative cardiac management. Subjective Date of service: 11/24/17 Interval history: Patient has no cardiac complaints. Objective Vital Signs Temp Pulse Resp Resp BP BP Pulse Ox 11/24/17 08:27 160/97 11/24/17 08:21 98.4 F 66 16 96 11/24/17 07:41 19 11/24/17 07:17 71 191/92 11/24/17 00:09 18 11/24/17 00:03 18 153/81 11/23/17 23:09 19 11/23/17 22:28 69 188/83 11/23/17 22:27 69 188/83 11/23/17 22:00 19 18 11/23/17 15:49 98.9 F 66 20 133/72 93 11/23/17 11:58 99.6 F 66 20 135/71 94 - Physical Examination General: No Apparent Distress HEENT: Positive: PERRL Cardiac: Positive: Reg Rate and Rhythm Lungs: Positive: Decreased Breath Sounds Neuro: Positive: Grossly Intact Extremities: Present: +1 Edema
[2017-11-24] MEDS: HALFPRIN EC PO SCH (10:04)
[2017-11-24] MEDS: DIOVAN PO SCH (10:04)
[2017-11-24] MEDS: COREG PO SCH (10:05)
[2017-11-24] MEDS: K-DUR PO SCH (10:05)
[2017-11-24 14:40] VITALS: BP 127/75
--- NOTE | 2017-11-24 14:45 | Progress Note ---
Assessment and Plan Imp: 1. FRANCES/OHS/Morbid obesity 2. NICMP 3. Acute/chronic diastolic and systolic CHF due to suboptimal compliance 4. Pulmonary HTN -> primarily pulmonary venous HTN (per RHC elevated PCWP, LVEDP , normal PVR and trans-pulmonary gradient) 5. Chronic respiratory failure, hypoxia and hypercapnea Rec: 1. Diuresis 2. BP control 3. Weight loss 4. States she has home O2; keep sats 88-94% 5. Home NIV QHS and PRN; consulted case management to help her get needed supplies from DME 6. Prognosis will be guarded with medical noncompliance 7. F/u with us in 1-2 weeks, sooner prn; minimal smoking history but can do a spirometry to exclude COPD Plan of care reviewed with patient, she understands/agrees Subjective Date of service: 11/24/17 Principal diagnosis: CHF, FRANCES Interval history: No events. SOB better. On RA now. Still with lower back pain, positional. No cough, sputum. Active Medications Acetaminophen (Tylenol) 650 mg PO Q6H PRN PRN Reason: Pain, Mild (1-3) Last Admin: 11/24/17 06:47 Dose: 650 mg Aspirin (Halfprin Ec) 81 mg PO DAILY [facility] Last Admin: 11/24/17 10:04 Dose: 81 mg Carvedilol (Coreg) 6.25 mg PO BID [facility] Last Admin: 11/24/17 10:05 Dose: 6.25 mg Furosemide (Lasix) 40 mg IV 0600,1800 [facility] Last Admin: 11/24/17 06:35 Dose: 40 mg Heparin Sodium (Porcine) (Heparin) 5,000 unit SUB-Q Q8HR [facility] Last Admin: 11/24/17 13:20 Dose: Not Given Hydralazine HCl (Apresoline) 10 mg IV Q4HR PRN PRN Reason: Hypertension Last Admin: 11/24/17 07:17 Dose: 10 mg Potassium Chloride (K-Dur) 20 meq PO DAILY [facility] Last Admin: 11/24/17 10:05 Dose: 20 meq Valsartan (Diovan) 160 mg PO BID [facility] Last Admin: 11/24/17 10:04 Dose: 160 mg Objective Vital Signs - 12hr 11/24/17 11/24/17 11/24/17 07:17 07:41 08:21 Temperature 98.4 F Pulse Rate 71 66 Respiratory 19 16 Rate Blood Pressure 191/92 Blood Pressure [Right] O2 Sat by Pulse 96 Oximetry 11/24/17 11/24/17 11/24/17 08:27 14:32 14:39 Temperature 98.3 F Pulse Rate 63 Respiratory 20 Rate Blood Pressure Blood Pressure 160/97 127/75 [Right] O2 Sat by Pulse 94 Oximetry Constitutional: no acute distress, alert Eyes: non-icteric ENT: oropharynx moist Neck: supple Effort: normal Ascultation: Bilateral: clear Cardiovascular: regular rate and rhythm (no mrg) Gastrointestinal: normoactive bowel sounds, soft, non-tender, non-distended Integumentary: normal Extremities: no cyanosis, pink and warm, edema (1+ bilateral LE edema) Neurologic: normal mental status, non-focal exam, pupils equal and round, CN II- XII normal Psychiatric: mood appropriate, affect normal CBC and BMP: 11/22/17 05:42 11/22/17 05:42 ABG, PT/INR, D-dimer: PT/INR, D-dimer D-Dimer 339.54 ng/mlDDU (0-234) H 11/20/17 22:06 Abnormal lab findings: Abnormal Labs 11/20/17 11/20/17 11/20/17 22:06 22:06 22:06 [place] % (Auto) 8.4 H D-Dimer 339.54 H Chloride Carbon Dioxide Creatinine 0.6 L Glucose 110 H NT-Pro-B Natriuret Pep 934.4 H Albumin 3.4 L 11/22/17 11/22/17 05:42 05:42 [place] % (Auto) 7.7 H D-Dimer Chloride 95.5 L Carbon Dioxide 34 H Creatinine 0.5 L Glucose NT-Pro-B Natriuret Pep Albumin Chest x-ray: report reviewed, image reviewed CT scan - chest: report reviewed, image reviewed
--- NOTE | 2017-11-24 17:22 | Discharge Summary ---
Providers - Providers Date of Admission: 11/21/17 10:48 Date of discharge: 11/24/17 Attending physician: VILMA SCHAEFFER 11/21/17 07:13 Consult to Cardiology [CONS] Routine Consulting Provider: CELSO PABLO Reason For Exam: CHF exacerbation 11/23/17 11:59 Consult to Physician [CONS] Routine Consulting Provider: EDWIN SCHMIDT Reason For Exam: Ac on Chr resp failure/Pulm hypertension Place consult to:: DR. SCHMIDT Notified:: OFFICE Phone number called:: [phone] Was contact made?: Yes If yes, spoke with:: BYRON Time called:: 12:29 11/23/17 14:54 Consult to Case Management [CONS] Routine Services Needed at Discharge: DME Equipment Notified:: copy given to cm Comment:: can we help her get needed cpap supplies from [facility]? Primary care physician: BELÉN LYNN Hospitalization Condition: Stable Disposition: DC-01 TO HOME OR SELFCARE Time spent for discharge: 32 min Core Measure Documentation - Palliative Care Palliative Care/ Comfort Measures: Not Applicable - Core Measures Any of the following diagnoses?: none Exam - Constitutional Vitals: Temp Pulse Resp BP Pulse Ox 98.3 F 63 20 127/75 94 11/24/17 14:32 11/24/17 14:32 11/24/17 14:32 11/24/17 14:39 11/24/17 14:32 General appearance: Present: no acute distress, well-nourished, obese (morbidly obese) - EENT Eyes: Present: PERRL, EOM intact - Neck Neck: Present: supple, normal ROM - Respiratory Respiratory effort: normal Respiratory: bilateral: diminished, negative: rales, rhonchi, wheezing - Cardiovascular Rhythm: regular Heart Sounds: Present: S1 & S2 - Extremities Extremities: no ischemia, No edema - Abdominal General gastrointestinal: Present: soft, non-tender, non-distended, normal bowel sounds - Integumentary Integumentary: Present: clear, warm - Musculoskeletal Musculoskeletal: strength equal bilaterally - Psychiatric Psychiatric: appropriate mood/affect, cooperative - Neurologic Neurologic: CNII-XII intact, moves all extremities Plan Activity: advance as tolerated Diet: low salt, other (cardiac diet) Additional Instructions: Patient strongly advised to comply with medications, diet and follow-up visits. Also advised diet modification and exercise as tolerated and weight reduction when medically stable. Advised bariatric surgical evaluation for weight reduction program as outpatient when medically stable Follow up with: BELÉN LYNN MD [Primary Care Provider] - 3-5 Days EDWIN SCHMIDT MD [Staff Physician] - 7 Days CELSO PABLO MD [Staff Physician] - 7 Days Prescriptions: Aspirin EC [Aspirin Enteric Coated TAB] 81 mg PO DAILY #30 tablet Carvedilol [Coreg] 6.25 mg PO BID #60 tablet Furosemide [Lasix TAB] 40 mg PO QDAY #30 tablet Potassium Chloride [K-Dur] 20 meq PO DAILY #30 tablet Valsartan [Diovan] 160 mg PO BID #60 tablet
== END 2017-11-24 19:00 | disposition home or self-care (01) | DRG 291 ==
LOC: ED 21:50 → 3A 11-21 10:48
PROVIDERS: ADMIT Internal Medicine Geriatric Medicine; ATTEND Internal Medicine
DX: I11.0 Hypertensive heart disease with heart failure (principal); J96.21 Acute and chronic respiratory failure with hypoxia; J96.22 Acute and chronic respiratory failure with hypercapnia; Z68.42 Body mass index [BMI] 45.0-49.9, adult; E66.01 Morbid (severe) obesity due to excess calories; G47.33 Obstructive sleep apnea (adult) (pediatric); I16.0 Hypertensive urgency; E87.70 Fluid overload, unspecified; I25.5 Ischemic cardiomyopathy; I50.43 Acute on chronic combined systolic (congestive) and diastolic (congestive) heart failure; I27.20 Pulmonary hypertension, unspecified; Z71.3 Dietary counseling and surveillance; Z79.899 Other long term (current) drug therapy; Z90.710 Acquired absence of both cervix and uterus; Z79.82 Long term (current) use of aspirin; Z90.49 Acquired absence of other specified parts of digestive tract; Z82.49 Family history of ischemic heart disease and other diseases of the circulatory system; Z88.5 Allergy status to narcotic agent; Z91.14 Patient's other noncompliance with medication regimen
CPT/HCPCS: 36415; 71045; 71275; 80048; 80053; 81001; 83735; 83880; 84484; 85025; 85379; 93005; 93010; 93306; 96374; 96375; 96376; J0360; J1644; J1885; J1940; Q9967